=== PATIENT | male | born 1990 | race Caucasian/White ===

== ENCOUNTER → 2022-10-14 | Outpatient (CLI) | payer MEDICAID, SELFPAY ==
[2022-10-14 09:47] LABS: Absolute Lymphocyte Count 1.87 X10^3/uL (0.83-4.51); Absolute Neutrophil Count 2.3 X10^3/uL (2.0-7.7); Basophil# 0.03 X10^3/uL; Basophil% 0.6 % (0-1); Eosinophil# 0.25 X10^3/uL; Hematocrit 45.9 % (40-54); Lymphocyte # 1.87 X10^3/ul (0.83-4.51); Lymphocyte % 37.1 % (19-41); Mean Corp Hgb Conc 34.9 g/dL (32-36); Mean Corpuscular Hgb 33.9 pg (27.0-32.0); Mean Corpuscular Volume 97.2 fL (80-94); Mean Platelet Vol. 9.6 fl (6.2-12.0); Monocyte% 11.9 % (0-10); NRBC Flagged by Analyzer 0 % (0-5); Neutrophil # 2.27 X10^3/uL (2.7-7.7); Platelet Count 270 K/mm3 (150-450); RBC Distribution Width CV 12.7 % (11.6-14.6); RBC Distribution Width SD 45.3 fl (35.1-43.9); Red Blood Count 4.72 M/mm3 (4.6-6.2)
[2022-10-16 18:07] LABS: Alternaria alternata <0.10 kU/L (Class 0); Bermuda Grass <0.10 kU/L (Class 0); Bluegrass, Kentucky <0.10 kU/L (Class 0); D farinae Mite 0.79 kU/L (Class II); D pteronyssinus 0.79 kU/L (Class II); Dog Epithelia 8.15 kU/L (Class IV); Elm, American White <0.10 kU/L (Class 0); Mouse Urine 1.46 kU/L (Class III); Oak, White <0.10 kU/L (Class 0); Plantain, English <0.10 kU/L (Class 0); Ragweed, Short/Common 0.16 kU/L (Class 0/I)
[2022-10-17 17:08] LABS: Aspirgillus flavus Negative (Neg:<1:1); Aspirgillus fumigatus Negative (Neg:<1:1); Aspirgillus niger Negative (Neg:<1:1); Immunoglobulin E 536 IU/mL (6-495)
== END | disposition home or self-care (01) ==
LOC: PAVLAB 09:18
PROVIDERS: PCP Student in an Organized Health Care Education/Training Program; Referring Provider Internal Medicine Critical Care Medicine; Visit Provider Internal Medicine Critical Care Medicine
DX: J45.50 Severe persistent asthma, uncomplicated (principal)
CPT/HCPCS: 36415; 82785; 85025; 86003; 86606

== ENCOUNTER → 2022-11-11 | Outpatient (CLI) | payer MEDICAID, SELFPAY ==
--- NOTE | 2022-11-12 11:16 | PFT ---
INTRODUCTION: The patient is a 32-year-old male who presents for pulmonary function studies secondary to a diagnosis of asthma. Respiratory therapy reported good patient effort. Bronchodilators were used during testing. INTERPRETATION: Forced expiration spirometry demonstrates the presence of a mild large airways obstructive ventilatory defect. There was a significant response to aerosolized bronchodilators. Spirograms are of good quality and plateau gradually indicating slow emptying of the lungs. Body plethysmography was performed and revealed an elevated RV to 209% of predicted, indicative of underlying air trapping. Diffusing capacity by single breath CO was within normal limits. IMPRESSION: Partially reversible mild large airways obstructive ventilatory defect with associated air trapping.
== END | disposition home or self-care (01) ==
LOC: PSN 07:11
PROVIDERS: PCP Student in an Organized Health Care Education/Training Program; Referring Provider Internal Medicine Critical Care Medicine; Visit Provider Internal Medicine Critical Care Medicine
DX: J45.50 Severe persistent asthma, uncomplicated (principal)
CPT/HCPCS: 94060; 94726; 94729

== ENCOUNTER 2023-03-16 08:58 | Outpatient (CLI) | payer MEDICAID, SELFPAY ==
[2023-03-16 09:07] VITALS: BP 130/92; PULSE 83; RESP 16; TEMP 36.7; O2SAT 97; BMI 24.3
[2023-03-16] MEDS: Omalizumab 150 MG/ML Syringe SQ (09:18)
== END 2023-03-16 08:59 | disposition home or self-care (01) ==
PROVIDERS: PCP Student in an Organized Health Care Education/Training Program; Referring Provider Nurse Practitioner Acute Care; Visit Provider Nurse Practitioner Acute Care
DX: J45.50 Severe persistent asthma, uncomplicated (principal)
CPT/HCPCS: 96372; J2357

== ENCOUNTER 2023-05-01 09:15 | Outpatient (CLI) | payer MEDICAID, SELFPAY ==
[2023-05-01 09:26] VITALS: BP 128/70; PULSE 77; RESP 16; TEMP 36.2; O2SAT 93; BMI 27.0
[2023-05-01] MEDS: Omalizumab 150 MG/ML Syringe SQ (09:27)
--- OUTSIDE RECORDS SUMMARY | 2023-05-01 09:33 | XMS RPT_ITS | CCD ---
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 Name Role Phone Andree Kelly Irma Unavailable Unavailable ADA INIGUEZ, KELLIE Primary Care Physician ([id number] HALTAO INIGUEZ, KELLIE Primary Care Unavailable ANA SARAVIA Attending Unavailable JOSEPH KEATING MD Attending Unavailable DYLANKO , KELLIE Primary Care Unavailable VICENTE RUSSELL DO Attending Unavailable DYLANKO , KELLIE Primary Care Unavailable JAVIER INIGUEZ, DR TASNEEM Trevino Attending Unavailable ADA INIGUEZ, KELLIE Primary Care Unavailable KELLIE CABALLERO DO Attending Unavailable DYLANKO , KELLIE Primary Care Unavailable HALKO , KELLIE Primary Care Unavailable JAYNE WOOTEN MD Attending Unavailable ALBERTO HOGAN MD Attending Unavailable ADA DO, KELLIE Primary Care Unavailable HALKO DO, KELLIE Primary Care Unavailable ANA SARAVIA Attending Unavailable ADA INIGUEZ, KELLIE Primary Care Unavailable ANA SARAVIA Attending Unavailable KELLIE CABALLERO DO Attending Unavailable ADA INIGUEZ, KELLIE Primary Care Unavailable HALKO , KELLIE Primary Care Unavailable ODALIS CERVANTES MD Attending Unavailable Medications Current Medications Medication Drug Class(es) Dates Sig (Normalized) Sig (Original) Aimovig SureClick Autoinjector 70 mg/mL subcutaneous solution (1 source) Start: 06-18-2021 inject 1 dose by subcutaneous injection every month Aimovig SureClick Autoinjector 70 mg/mL subcutaneous solution Dose : 70 mg =, Subcutaneous, qmonth, # 1 mL, 0 Refill(s) Start Date: 06/18/21 Status: Ordered Albuterol (15 sources) beta2-Adrenergic Agonist Start: 04-10-2023 End: 05-10-2023 take 1 puff(s) by inhalation four times daily Ventolin HFA MDI (90 mcg/inh) inhalation aerosol 1 puff(s), Inhalation, QID, # 1 EA, 0 Refill(s) Start Date: 04/10/23 Stop Date: 05/10/23 Status: Ordered Completed/Discontinued Medications Medication Drug Class(es) Dates Sig (Normalized) Sig (Original) albuterol 0.833 mg/ml / ipratropium bromide 0.167 mg/ml inhalation solution (6 sources) Anticholinergic, beta2-Adrenergic Agonist Start: 01-15-2023 End: 01-22-2023 take 1 dose by inhalation every four hours as needed for wheezing albuterol-ipratro pium 2.5 mg-0.5 mg/3 mL inhalation solution Dose = 3 mL, Inhalation, q4h, PRN as needed for shortness of breath or wheezing, # 180 mL, 0 Refill(s), [facility]acy: [id number], Exacerbation of asthma, 175.3, cm, 01/15/23 14:25:00 EDT, Height, kg, 01/15/23 14:25:00 EDT, Dosing Weight Start Date: 01/15/23 Stop Date: 01/22/23 Status: Ordered Problems Active Problems Problem Classification Problem Date Documented Da te Episodic/Chronic Allergic reactions (6 sources) 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-2021 Episodic Asthma (8 sources) Exacerbation of asthma; Translations: [Unspecified asthma with (acute) exacerbation] Onset: 06-24-2021 Chronic Disorders of lipid metabolism (6 sources) Hyperlipidemia 09-06-2021 Chronic Epilepsy; convulsions (7 sources) Seizure disorder 06-18-2021 Episodic Genitourinary symptoms and ill-defined conditions (8 sources) Nocturia; Translations: [Polyuria] 06-18-2021 Episodic Headache; including migraine (7 sources) Migraine 06-18-2021 Chronic Mood disorders (7 sources) Bipolar disorder 05-27-2016 Chronic Other bone disease and musculoskeletal deformities (3 sources) Somatic dysfunction of lumbar region 05-23-2022 Episodic Other lower respiratory disease (1 source) Hypoxia 04-10-2023 Episodic Other nutritional; endocrine; and metabolic disorders (4 sources) Excessive thirst 06-18-2021 Episodic Other upper respiratory disease (7 sources) Seasonal allergy 06-18-2021 Chronic Other upper respiratory disease (4 sources) Bleeding from nose 06-18-2021 Episodic Screening and history of mental health and substance abuse codes (4 sources) Ex-smoker 06-18-2021 Episodic Past or Other Problems Problem Classification Problem Date Documented Da te Episodic/Chronic Unclassified (1 source) RASH,BUG BITES Onset: 10-08-2016 Results Test Name Value Interpretation Reference Range Facil ity Vital Signs Date Time Vital Sign Value Performing Clinician Faci lity 04-10-2023 17:15-0500 Diastolic Blood Pressure Non-Invasive 91 mm[Hg] DR TASNEEM HERRERA DO [facility] 04-10-2023 17:15-0500 Heart rate 72 /min DR TASNEEM HERRERA DO [facility] 04-10-2023 17:15-0500 Respiratory rate 16 /min DR TASNEEM HERRERA DO [facility] 04-10-2023 17:15-0500 Systolic Blood Pressure Non-Invasive 146 mm[Hg] DR TASNEEM HERRERA DO [facility] 04-10-2023 16:37-0500 Diastolic Blood Pressure Non-Invasive 91 mm[Hg] DR TASNEEM HERRERA DO [facility] 04-10-2023 16:37-0500 Heart rate 68 /min DR TASNEEM HERRERA DO [facility] 04-10-2023 16:37-0500 Respiratory rate 18 /min DR TASNEEM HERRERA DO [facility] 04-10-2023 16:37-0500 Systolic Blood Pressure Non-Invasive 140 mm[Hg] DR TASNEEM HERRERA DO [facility] 04-10-2023 15:58-[address] TASNEEM HERRERA DO [facility] 04-10-2023 15:58-[address] TASNEEM HERRERA DO [facility] 04-10-2023 15:58-0500 Diastolic Blood Pressure Non-Invasive 94 mm[Hg] DR TASNEEM HERRERA DO [facility] 04-10-2023 15:58-0500 Heart rate 84 /min DR TASNEEM HERRERA DO [facility] 04-10-2023 15:58-0500 Mean blood pressure 110 mm[Hg] DR TASNEEM HERRERA DO [facility] 04-10-2023 15:58-0500 Respiratory rate 18 /min DR TASNEEM HERRERA DO [facility] 04-10-2023 15:58-0500 Systolic Blood Pressure Non-Invasive 153 mm[Hg] DR TASNEEM HERRERA DO [facility] 04-10-2023 13:24-[address] TASNEEM HERRERA DO [facility] 04-10-2023 13:24-[address] TASNEEM HERRERA DO [facility] 04-10-2023 13:24-0500 Body temperature 98.24 [degF] DR TASNEEM HERRERA DO [facility] 04-10-2023 13:24-0500 Body weight 81.[address] TASNEEM HERRERA DO [facility] 02-22-2023 20:15-0500 Diastolic Blood Pressure Non-Invasive 86 mm[Hg] ODALIS CERVANTES MD [facility] 02-22-2023 20:15-0500 Heart rate 68 /min ODALIS CERVANTES MD [facility] 02-22-2023 20:15-0500 Respiratory rate 18 /min ODALIS CERVANTES MD [address] 02-22-2023 20:15-0500 Systolic Blood Pressure Non-Invasive 133 mm[Hg] ODALIS CERVANTES MD [address] [place] [address] 02-22-2023 16:28-0500 Diastolic Blood Pressure Non-Invasive 81 mm[Hg] ODALIS CERVANTES MD [address] 02-22-2023 16:28-0500 Heart rate 72 /min ODALIS CERVANTES MD [address] [place] [address] 02-22-2023 16:28-0500 Respiratory rate 18 /min ODALIS CERVANTES MD [address] [place] [address] 02-22-2023 16:28-0500 Systolic Blood Pressure Non-Invasive 146 mm[Hg] ODALIS CERVANTES MD [address] [place] [address] 02-22-2023 14:22-0500 Body temperature 97.16 [degF] ODALIS CERVANTES MD [address] [place] [address] 02-22-2023 14:22-0500 Body weight 73 kg ODALIS CERVANTES MD [address] [place] [address] 02-22-2023 14:22-0500 Diastolic Blood Pressure Non-Invasive 118 mm[Hg] ODALIS CERVANTES MD [address] 02-22-2023 14:22-0500 Heart rate 92 /min ODALIS CERVANTES MD [address] [place] [address] 02-22-2023 14:22-0500 Respiratory rate 16 /min ODALIS CERVANTES MD [address] [place] [address] 02-22-2023 14:22-0500 Systolic Blood Pressure Non-Invasive 151 mm[Hg] ODALIS CERVANTES MD [address] [place] [address] 12-16-2022 12:14-0400 Body temperature 97.7 [degF] JAYNE WOOTEN MD [facility] 12-16-2022 12:14-0400 Body weight 74.2 kg JAYNE WOOTEN MD [facility] 12-16-2022 12:14-0400 Diastolic Blood Pressure Non-Invasive 90 1 JAYNE WOOTEN MD [facility] 12-16-2022 12:14-0400 Heart rate 75 /min JAYNE WOOTEN MD [facility] 12-16-2022 12:14-0400 Respiratory rate 20 /min JAYNE WOOTEN MD [facility] 12-16-2022 12:14-0400 Systolic Blood Pressure Non-Invasive 136 1 JAYNE WOOTEN MD [facility] 04-17-2022 08:33-0500 Body temperature 97.88 [degF] JAYNE WOOTEN MD [facility] 04-17-2022 08:33-0500 Body weight 77.5 kg JAYNE WOOTEN MD [facility] 04-17-2022 08:33-0500 Diastolic Blood Pressure Non-Invasive 126 1 JAYNE WOOTEN MD [facility] 04-17-2022 08:33-0500 Heart rate 97 /min AJYNE WOOTEN MD [facility] 04-17-2022 08:33-0500 Respiratory rate 18 /min JAYNE WOOTEN MD [facility] 04-17-2022 08:33-0500 Systolic Blood Pressure Non-Invasive 161 1 JAYNE WOOTEN MD [facility] 06-24-2021 12:05-0400 Diastolic blood pressure 71 mm[Hg] ZULAY WALLACEGena DO [facility] 06-24-2021 12:05-0400 Heart rate 88 /min ZULAY WALLACET DO [facility] 06-24-2021 12:05-0400 Mean blood pressure 91 mm[Hg] ZULAY GONSALEZWeedWall [facility] 06-24-2021 12:05-0400 Respiratory rate 17 /min [facility]AY [facility] INSANEWeed[facility] 06-24-2021 12:05-0400 Systolic blood pressure 131 mm[Hg] ZULAY [facility] 06-24-2021 09:05-0400 Heart rate 107 /min [facility] 06-24-2021 09:05-0400 Respiratory rate 18 /min [facility] 06-24-2021 08:50-0400 Heart rate 81 /min [facility]AY [facility] 06-24-2021 08:50-0400 Respiratory rate 14 /min [facility] [email or web address] [facility] 06-24-2021 08:08-0400 Body temperature 98.06 [degF] ZULAY [facility] 06-24-2021 08:08-0400 Body weight 66.5 kg ZULAY MOSESArena [employer]aceuticals [facility] 06-24-2021 08:08-0400 Diastolic blood pressure 75 mm[Hg] ZULAY [facility] 06-24-2021 08:08-0400 Heart rate 103 /min ZULAY [facility] 06-24-2021 08:08-0400 Systolic blood pressure 139 mm[Hg] ZULAY ZAMAN DO [facility] Encounters Encounter Date Encounter Type Care Provider Facility Start: 04-10-2023 End: 04-10-2023 Emergency department patient visit DR TASNEEM HERRERA DO Facility:B Start: 04-10-2023 End: 04-10-2023 Emergency department patient visit DR TASNEEM HERRERA DO [facility] Start: 03-25-2023 End: 03-25-2023 Emergency department patient visit KELLIE DYLANTAO INIGUEZ Facility:A Start: 02-22-2023 End: 02-22-2023 Emergency department patient visit KELLIE CABALLERO Facility:A Start: 02-22-2023 End: 02-22-2023 Emergency department patient visit ODALIS CERVANTES MD [facility] Start: 02-22-2023 End: 02-22-2023 Emergency department patient visit KELLIE CABALLERO Facility:A Start: 12-22-2022 End: 12-22-2022 Emergency department patient visit KELLIE RICHARDSONTAO INIGUEZ Facility:A Start: 12-16-2022 End: 12-16-2022 Emergency department patient visit ALBERTO HOGAN MD Facility:A Start: 12-16-2022 End: 12-16-2022 Emergency department patient visit KELLIE CABALLERO Facility:A Start: 12-16-2022 End: 12-16-2022 Emergency department patient visit JAYNE WOOTEN MD [facility] Start: 11-03-2022 End: 11-03-2022 Emergency department patient visit VICENTE RUSSELL DO Facility:A Start: 06-17-2022 End: 06-17-2022 Emergency department patient visit JOSEPH KEATING MD Facility:A Start: 05-20-2022 End: 07-04-2022 ambulatory KELLIE CABALLERO DO Facility:A Start: 05-02-2022 End: 05-03-2022 ambulatory KELLIE CABALLERO DO Facility:B Start: 05-02-2022 End: 05-02-2022 Patient encounter procedure KELLIE CABALLERO DO [facility] Start: 04-17-2022 End: 04-17-2022 Emergency department patient visit JAYNE WOOTEN MD [facility] Start: 04-17-2022 End: 04-17-2022 Emergency department patient visit JAYNE WOOTEN MD [facility] Start: 06-24-2021 End: 06-24-2021 Emergency department patient visit ZULAY AUSTNY INIGUEZ [facility] Start: 10-08-2016 Ambulatory Kelly Candelario Facility:[facility] Procedures Date Procedure Procedure Detail Performing Clinician None (qualifier value) ZAHIDA WILSON [facility] INSANEGena INIGUEZ Immunizations Immunization Date Immunization Notes Care Provider [facility] 01-15-2023 influenza, injectabl e, quadrivalent, contains preservative; Translations: [Fluarix PF Quadrivalent ] ODALIS CERVANTES MD [facility] 08-22-2020 SARS-CoV-2 (COVID-19 ) mRNA-1273 vaccine JAYNE WOOTEN MD [facility] 07-25-2020 SARS-CoV-2 (COVID-19 ) mRNA-1273 vaccine JAYNE WOOTEN MD [facility] 04-06-2020 SARS-CoV-2 (COVID-19 ) mRNA-1273 vaccine JAYNE WOOTEN MD [facility] 03-07-2019 influenza virus vaccine, unspecified formulation JAYNE WOOTEN MD [facility] 04-30-1990 measles/mumps/rubell a virus vaccine JAYNE WOOTEN MD [facility] Payers Date Payer Category Payer Unknown [id number] 2016 Unknown [id number] 1989 Unknown [id number] 2.16.8 [id number] 1989 Unknown [id number] 2.16.8 [id number] 1989 Unknown [id number] 2.16.8 [id number] 1989 Unknown [id number] 2.16.8 [id number] 1989 Unknown [id number] 2.16.8 [id number] 1989 Unknown [id number] 2.16.8 [id number] 1989 Unknown [id number] 2.16.8 [id number] 1989 Unknown [id number] 2.16.8 [id number] 1989 Unknown [id number] 2.16.8 [id number] 1989 Unknown [id number] 2.16.8 [id number] 1989 Unknown [id number] 2.16.8 [id number] Social History Date Type Detail Facility Start: 06-18-2021 End: 12-30-2021 Light tobacco smoker (finding) [facility] At [facility] Start: 09-16-2022 Tobacco smoking status Ex-smoker (fi nding) [facility] Functional Status Date Assessment Result Facility 04-10-2023 Functional Status Independent [facility] 02-22-2023 Functional Status Independent [facility] 02-22-2023 Functional Status Standard Safet y ID band on, Call device within reach, Bed in low position, Wheels locked, Phone within reach, personal items within reach, Bedside Cart Locked, Safety level maintained, Hazards removed from floor [facility] Mental Status Date Assessment Result Facility 04-10-2023 Mental Status Orientation Oriented x 4 [facility] 04-10-2023 Mental Status [facility] 02-22-2023 Mental Status Orientation Oriented x 4 [facility] 02-22-2023 Mental Status [facility] Clinical Notes 06-24-2021 to 04-10-2023 LaboratoryLaboratoryLaboratoryLaboratoryLaboratory Note Date & Type Note Facility 04-10-2023 Hospital Discharg e instructions Patient Education 04/10/2023 16:28:43 COVID-19 Prevent the Spread of COVID-19 If You Are Sick (08/23/2019) (CUSTOM) Prevent the Spread of COVID-19 If You Are Sick Accessible version: https://www.cdc.gov/coronavirus/ 2019-ncov/eh-jlc-esq-sick/steps- when-sick.html If you are sick with COVID-19 or think you might have COVID-19, follow the steps below to help protect other people in your home and community. Stay home except to get medical care. Stay home. Most people with COVID-19 have mild illness and are able to recover at home without medical care. Do not leave your home, except to get medical care. Do not visit public areas. Take care of yourself. Get rest and stay hydrated. Get medical care when needed. Call your doctor before you go to their office for care. But, if you have trouble breathing or other concerning symptoms, call 911 for immediate help. Avoid public transportation, ride-sharing, or taxis. Separate yourself from other people and pets in your home. As much as possible, stay in a specific room and away from other people and pets in your home. Also, you should use a separate bathroom, if available. If you need to be around other people or animals in or outside of the home, wear a cloth face covering. See COVID-19 and Animals if you have questions about pets: https://www.cdc.gov/coronavirus/ 2019ncov/faq.html#DXUXE30puaixuo Monitor your symptoms. Common symptoms of COVID-19 include fever and cough. Trouble breathing is a more serious symptom that means you should get medical attention. Follow care instructions from your healthcare provider and local health department. Your local health authorities will give instructions on checking your symptoms and reporting information. If you develop emergency warning signs for COVID-19 get medical attention immediately. Emergency warning signs include*: Trouble breathing Persistent pain or pressure in the chest New confusion or not able to be woken Bluish lips or face *This list is not all inclusive. Please consult your medical provider for any other symptoms that are severe or concerning to you. Call 911 if you have a medical emergency. If you have a medical emergency and need to call 911, notify the bandsaw operator that you have or think you might have, COVID-19. If possible, put on a facemask before medical help arrives Call ahead before visiting your doctor. Call ahead. Many medical visits for routine care are being postponed or done by phone or telemedicine. If you have a medical appointment that cannot be postponed, call your doctor s office. This will help the office protect themselves and other patients. If you are sick, wear a cloth covering over your nose and mouth. You should wear a cloth face covering over your nose and mouth if you must be around other people or animals, including pets (even at home). You don t need to wear the cloth face covering if you are alone. If you can t put on a cloth face covering (because of trouble breathing for example), cover your coughs and sneezes in some other way. Try to stay at least 6 feet away from other people. This will help protect the people around you. Note: During the COVID-19 pandemic, medical grade facemasks are reserved for healthcare workers and some first responders. You may need to make a cloth face covering using a scarf or bandana. Cover your coughs and sneezes. Cover your mouth and nose with a tissue when you cough or sneeze. Throw used tissues in a lined trash can. Immediately wash your hands with soap and water for at least 20 seconds. If soap and water are not available, clean your hands with an alcohol-based hand inserting operator that contains at least 60% alcohol. Clean your hands often. Wash your hands often with soap and water for at least 20 seconds. This is especially important after blowing your nose, coughing, or sneezing; going to the bathroom; and before eating or preparing food. Use hand inserting operator if soap and water are not available. Use an alcohol-based hand inserting operator with at least 60% alcohol, covering all surfaces of your hands and rubbing them together until they feel dry. Soap and water are the best option, especially if your hands are visibly dirty. \ Avoid touching your eyes, nose, and mouth with unwashed hands. Avoid sharing personal household items. Do not share dishes, drinking glasses, cups, eating utensils, towels, or bedding with other people in your home. Wash these items thoroughly after using them with soap and water or put them in the research technician. Clean all high-touch surfaces everyday. Clean and disinfect high-touch surfaces in your sick room and bathroom. Let someone else clean and disinfect surfaces in common areas, but not your bedroom and bathroom. If a caregiver or other person needs to clean and disinfect a sick person s bedroom or bathroom, they should do so on an as-needed basis. The caregiver/other person should wear a mask and wait as long as possible after the sick person has used the bathroom High-touch surfaces include phones, remote controls, counters, tabletops, doorknobs, bathroom fixtures, toilets, keyboards, tablets, and bedside tables. Clean and disinfect areas that may have blood, stool, or body fluids on them. Use household preparation plant repairer and disinfectants. Clean the area or item with soap and water or another detergent if it is dirty. Then use a household disinfectant. Be sure to follow the instructions on the label to ensure safe and effective use of the product. Many products recommend keeping the surface wet for several minutes to ensure germs are killed. Many also recommend precautions such as wearing gloves and making sure you have good ventilation during use of the product. Most EPA-registered household disinfectants should be effective. How to discontinue home isolation. People with COVID-19 who have stayed home (home isolated) can stop home isolation under the following conditions: If you will not have a test to determine if you are still contagious, you can leave home after these three things have happened: You have had no fever for at least 72 hours (that is three full days of no fever without the use of medicine that reduces fevers) AND other symptoms have improved (for example, when your cough or shortness of breath has improved) AND at least 10 days have passed since your symptoms first appeared. If you will be tested to determine if you are still contagious, you can leave home after these three things have happened: You no longer have a fever (without the use of medicine that reduces fevers) AND other symptoms have improved (for example, when your cough or shortness of breath has improved) AND you received two negative tests in a row, 24 hours apart. Your doctor will follow CDC guidelines. In all cases, follow the guidance of your healthcare provider and local health department. The decision to stop home isolation should be made in consultation with your healthcare provider and state and local health departments. Local decisions depend on local circumstances. cdc.gov/coronavirus Follow Up Care 04/10/2023 13:17:02 With:KELLIE CABALLERO DO Address: [address] [facility] [place], [place] [id number]- [phone] When:2-4 days [facility] 04-10-2023 Note Discharge Instructions Thank you for allowing [place] to assist you with your healthcare needs. The following is important discharge information regarding your hospital visit. Diagnosis from Today's Visit COVID What to Do Next Instructions from Your Care Team No qualifying data available. Post Acute Orders No qualifying data available. You Need to Schedule the Following Appointments Follow Up with HALKO, KELLIE DO When Within 2-4 days Where: [address] [facility] [place] [address]- [phone] Allergies [facility] Medications Please ask your primary doctor or pharmacist before taking any other medication not listed, including over the counter drugs, herbal medications, vitamins and or supplements as they may interact with your home medications. What How Much When Why Instructions Last Dose New amoxicillin (amoxicillin 875 mg oral tablet) 1 tab(s) by mouth Two (2) times a day Duration: 5 Days Printed Prescription Changed albuterol (ProAir HFA MDI (90 mcg/ inh) inhalation aerosol) 1 puff(s) by inhalation Every 4 hours as needed for as needed for wheezing Duration: 90 Days lack of efficacy with ventolin, dispense proair; use with spacer chamber Changed albuterol (Ventolin HFA MDI (90 mcg/ inh) inhalation aerosol) 1 puff(s) by inhalation Four (4) times a day Duration: 30 Days Printed Prescription Unchanged albuterol-ipratropium (albuterol-ipratropium 2.5 mg-0.5 mg/ 3 mL inhalation solution) 3 Milliliter by inhalation Every 4 hours as needed for as needed for shortness of breath or wheezing Exacerbation of asthma Duration: 7 Days Unchanged benzonatate (benzonatate 200 mg oral capsule) 1 cap by mouth Three (3) times a day Duration: 14 Days Unchanged budesonide-formoterol (Symbicort 160 mcg-4.5 mcg/ inh Inhaler) 2 puff(s) by inhalation Two (2) times a day Duration: 90 Days Unchanged cyclobenzaprine (cyclobenzaprine 10 mg oral tablet) 1 tab(s) by mouth Three (3) times a day as needed for Muscle spasm Duration: 30 Days Unchanged dextromethorphan-promethazine (dextromethorphan-promethazine 15 mg-6.25 mg/ 5 mL oral syrup) 5 Milliliter by mouth Every 6 hours as needed for for cough Duration: 7 Days Unchanged divalproex sodium (Depakote 500 mg oral delayed release tablet) 1 tab(s) by mouth Two (2) times a day Unchanged DME (DME MISCellaneous) See instructions dispense one inhaler spacer chamber; dx. J45.5 Unchanged DME (DME MISCellaneous) See instructions COVID Dx U07.1; dispense one nebulizer with pipe and tubing supplies Unchanged emollients, topical (emollients (Eucerin Cream) Cream) 1 application Topical Two (2) times a day as needed for as needed for dry skin Unchanged erenumab (A[employer]ig SureClick Autoinjector 70 mg/ mL subcutaneous solution) 70 Milligram Subcutaneous Once a month Unchanged gabapentin (gabapentin 300 mg oral capsule) 1 cap by mouth Three (3) times a day Low back pain with sciatica Duration: 30 Days to fill on or after Unchanged galcanezumab (Emgality Prefilled Pen 120 mg/ mL subcutaneous solution) 120 Milligram Unchanged meloxicam (meloxicam 15 mg oral tablet) 1 tab(s) by mouth Once a day Duration: 90 Days Unchanged montelukast (montelukast 10 mg oral tablet) 1 tab(s) by mouth Once a day Duration: 90 Days Unchanged OXcarbazepine (OXcarbazepine 300 mg oral tablet) 2 tab(s) by mouth Two (2) times a day Unchanged predniSONE (prednisone 10mg tab (TAPER)) [id number] x 2days/dose by mouth Once a day Duration: 14 Days [id number],1B3pjoy,9O4wyvm,3M9csfa, 4S9xniv,2Z6agoe, 0.5X2 days. Unchanged sildenafil (sildenafil 50 mg oral tablet) 1 tab(s) by mouth Once a day as needed for as needed for erectile dysfunction Duration: 30 Days 1 hour before sexual activity Unchanged tiotropium (Spiriva Respimat 1.25 mcg/ inh inhalation aerosol) 2 puff(s) by inhalation Once a day Duration: 90 Days Please take this list to your next doctor s visit. Bring all medications you take, including over the counter medications, herbals and other supplements with you to your doctor s visit. Patients and families are reminded to discard old lists and to update any records with all medication providers or retail pharmacies. Medication Leaflets amoxicillin (am OX i roman in) What is the most important information I should know about amoxicillin? You should not use this medicine if you are allergic to any penicillin antibiotic. What is amoxicillin? Amoxicillin is a penicillin antibiotic that is used to treat many different types of infection caused by bacteria, such as tonsillitis, bronchitis, pneumonia, and infections of the ear, nose, throat, skin, or urinary tract. Amoxicillin is also sometimes used together with another antibiotic called clarithromycin (Biaxin) to treat stomach ulcers caused by Helicobacter pylori infection. This combination is sometimes used with a stomach acid slusher operator called lansoprazole (Prevacid). Amoxicillin may also be used for purposes not listed in this medication guide. What should I discuss with my healthcare provider before taking amoxicillin? You should not use this medicine if you are allergic to any penicillin antibiotic, such as ampicillin, dicloxacillin, oxacillin, penicillin, or ticarcillin. Tell your doctor if you have ever had: kidney disease; mononucleosis (also called 'mono'); diarrhea caused by taking antibiotics; or food or drug allergies (especially to a cephalosporin antibiotic such as Omnicef, Cefzil, Ceftin, Keflex, and others). It is not known whether this medicine will harm an unborn baby. Tell your doctor if you are or plan to become . Amoxicillin can make control pills less effective. Ask your doctor about using a non-hormonal control (condom, diaphragm, cervical cap, or contraceptive sponge) to prevent . It may not be safe to breastfeed while using this medicine. Ask your doctor about any risk. How should I take amoxicillin? Follow all directions on your prescription label and read all medication guides or instruction sheets. Use the medicine exactly as directed. Take this medicine at the same time each day. Some forms of amoxicillin may be taken with or without food. Check your medicine label to see if you should take your amoxicillin with food or not. Shake the oral suspension (liquid) before you measure a dose. Measure liquid medicine with the dosing syringe provided, or use a medicine dose-measuring device (not a kitchen spoon). You may mix the liquid with water, milk, baby formula, fruit juice, or jhonny morro. Drink all of the mixture right away. Do not save for later use. You must chew the chewable tablet before you swallow it. Swallow the regular tablet whole and do not crush, chew, or break it. You will need frequent medical tests. If you are taking amoxicillin with clarithromycin and/or lansoprazole to treat stomach ulcer, use all of your medications as directed. Read the medication guide or patient instructions provided with each medication. Do not change your doses or medication schedule without your doctor's advice. Use this medicine for the full prescribed length of time, even if your symptoms quickly improve. Skipping doses can increase your risk of infection that is resistant to medication. Amoxicillin will not treat a viral infection such as the flu or a common cold. Do not share this medicine with another person, even if they have the same symptoms you have. This medicine can affect the results of certain medical tests. Tell any doctor who treats you that you are using amoxicillin. Store at room temperature away from moisture, heat, and light. You may store liquid amoxicillin in a refrigerator but do not allow it to freeze. Throw away any liquid amoxicillin that is not used within 14 days after it was mixed at the pharmacy. What happens if I miss a dose? Skip the missed dose and use your next dose at the regular time. Do not use two doses at one time. What happens if I overdose? Seek emergency medical attention or call the Poison Help line at . What should I avoid while taking amoxicillin? Antibiotic medicines can cause diarrhea, which may be a sign of a new infection. If you have diarrhea that is watery or bloody, call your doctor before using anti-diarrhea medicine. What are the possible side effects of amoxicillin? Get emergency medical help if you have signs of an allergic reaction (hives, difficult breathing, swelling in your face or throat) or a severe skin reaction (fever, sore throat, burning eyes, skin pain, red or purple skin rash with blistering and peeling). Call your doctor at once if you have: severe stomach pain; or diarrhea that is watery or bloody (even if it occurs months after your last dose). Common side effects may include: nausea, vomiting, diarrhea; or rash. This is not a complete list of side effects and others may occur. Call your doctor for medical advice about side effects. You may report side effects to FDA at 7-799-YCL-1458. What other drugs will affect amoxicillin? Tell your doctor about all your other medicines, especially: any other antibiotics; allopurinol; probenecid; or a blood thinner--warfarin, Coumadin, Jantoven. This list is not complete. Other drugs may affect amoxicillin, including prescription and aykm-dlj-fmvvsdt medicines, vitamins, and herbal products. Not all possible drug interactions are listed here. Where can I get more information? Your pharmacist can provide more information about amoxicillin. Remember, keep this and all other medicines out of the reach of children, never share your medicines with others, and use this medication only for the indication prescribed. Every effort has been made to ensure that the information provided by [employer]. [employer]') is accurate, up-to-date, and complete, but no guarantee is made to that effect. Drug information contained herein may be time sensitive. [employer] information has been compiled for use by healthcare practitioners and consumers in the [place] and therefore [employer] does not warrant that uses outside of the [place] are appropriate, unless specifically indicated otherwise. [employer]'s drug information does not endorse drugs, diagnose patients or recommend therapy. [facility] drug information is an informational resource designed to assist licensed healthcare practitioners in caring for their patients and/or to serve consumers viewing this service as a supplement to, and not a substitute for, the expertise, skill, knowledge and judgment of healthcare practitioners. The absence of a warning for a given drug or drug combination in no way should be construed to indicate that the drug or drug combination is safe, effective or appropriate for any given patient. [employer] does not assume any responsibility for any aspect of healthcare administered with the aid of information [employer] provides. The information contained herein is not intended to cover all possible uses, directions, precautions, warnings, drug interactions, allergic reactions, or adverse effects. If you have questions about the drugs you are taking, check with your doctor, nurse or pharmacist. Copyright [id number] [employer]. Version: 10.. Revision Date: 03/01/2019. albuterol inhalation (al BYOO ter all) ProAir HFA, ProAir RespiClick, Proventil HFA, Ventolin HFA What is the most important information I should know about albuterol inhalation? Follow all directions on your medicine label and package. Tell each of your healthcare providers about all your medical conditions, allergies, and all medicines you use. What is albuterol inhalation? Albuterol inhalation is a bronchodilator that is used to treat or prevent bronchospasm in people with reversible obstructive airway disease. Albuterol is also used to prevent exercise-induced bronchospasm. Albuterol inhalation is for use in adults and children at least 4 years old. Albuterol inhalation may also be used for purposes not listed in this medication guide. What should I discuss with my healthcare provider before using albuterol inhalation? You should not use this medicine if you are allergic to albuterol. You should not use ProAir RespiClick if you are allergic to milk proteins. Tell your doctor if you have ever had: heart disease, high blood pressure; a thyroid disorder; seizures; diabetes; or low levels of potassium in your blood. Tell your doctor if you are or plan to become . It is not known whether albuterol will harm an unborn baby. However, having uncontrolled asthma during may increase the risk of premature , low weight, or eclampsia (dangerously high blood pressure that can lead to medical problems in both mother and baby). The benefit of preventing bronchospasm may outweigh any risks to the baby. If you are , your name may be listed on a registry to track the effects of albuterol on the baby. It may not be safe to breastfeed while using this medicine. Ask your doctor about any risk. How should I use albuterol inhalation? Follow all directions on your prescription label and read all medication guides. Use the medicine exactly as directed. Do not allow a young child to use albuterol inhalation without help from an adult. To prevent exercise-induced bronchospasm, use this medicine 15 to 30 minutes before you exercise. The effects of albuterol inhalation should last about 4 to 6 hours. Seek medical attention if your breathing problems get worse quickly, or if you think your asthma medications are not working as well. Read and carefully follow any Instructions for Use provided with your medicine. Ask your doctor or pharmacist if you do not understand these instructions. ProAir HFA, Proventil HFA, or Ventolin HFA must be shaken before each use. You do not need to shake ProAir RespiClick before using. Do not try to clean or take apart the ProAir RespiClick inhaler device. Always use the new inhaler device provided with your refill. Do not float a medicine canister in water to see if it is empty. Your dose needs may change due to surgery, illness, stress, or a recent asthma attack. Do not change your dose or dosing schedule without your doctor's advice. Store at room temperature away from moisture, heat, or cold temperatures. Keep the cover on your ProAir RespiClick inhaler when not in use. Store Proventil or Ventolin with the mouthpiece down. Keep the inhaler canister away from open flame or high heat. The canister may explode if it gets too hot. Do not puncture or burn an empty inhaler canister. What happens if I miss a dose? Use the medicine as soon as you can, but skip the missed dose if it is almost time for your next dose. Do not use two doses at one time. Get your prescription refilled before you run out of medicine completely. What happens if I overdose? Seek emergency medical attention or call the Poison Help line at . An overdose of albuterol can be fatal. Overdose symptoms may include dry mouth, tremors, chest pain, fast heartbeats, nausea, general ill feeling, seizure, feeling light-headed or fainting. What should I avoid while using albuterol inhalation? Rinse with water if this medicine gets in your eyes. What are the possible side effects of albuterol inhalation? Get emergency medical help if you have signs of an allergic reaction: hives; difficult breathing; swelling of your face, lips, tongue, or throat. Call your doctor at once if you have: wheezing, choking, or other breathing problems after using this medicine; chest pain, fast heart rate, pounding heartbeats or fluttering in your chest; severe headache, pounding in your neck or ears; pain or burning when you urinate; high blood sugar--increased thirst, increased urination, dry mouth, fruity breath odor; or low potassium--leg cramps, constipation, irregular heartbeats, increased thirst or urination, numbness or tingling, muscle weakness or limp feeling. Common side effects may include: chest pain, fast or pounding heartbeats; upset stomach, vomiting; painful urination; dizziness; feeling shaky or nervous; headache, back pain, body aches; or cough, sore throat, sinus pain, runny or stuffy nose. This is not a complete list of side effects and others may occur. Call your doctor for medical advice about side effects. You may report side effects to FDA at 6-357-ELV-4214. What other drugs will affect albuterol inhalation? Tell your doctor about all your other medicines, especially: any other inhaled medicines or bronchodilators; digoxin; a diuretic or 'water pill'; an antidepressant--amitriptyline, desipramine, imipramine, doxepin, nortriptyline, and others; a beta cameron--atenolol, carvedilol, labetalol, metoprolol, propranolol, sotalol, and others; or an MAO inhibitor--isocarboxazid, linezolid, methylene blue injection, phenelzine, rasagiline, selegiline, tranylcypromine, and others. This list is not complete. Other drugs may affect albuterol inhalation, including prescription and befr-hxe-qbbcfqy medicines, vitamins, and herbal products. Not all possible drug interactions are listed here. Where can I get more information? Your pharmacist can provide more information about albuterol inhalation. Remember, keep this and all other medicines out of the reach of children, never share your medicines with others, and use this medication only for the indication prescribed. Every effort has been made to ensure that the information provided by [employer]') is accurate, up-to-date, and complete, but no guarantee is made to that effect. Drug information contained herein may be time sensitive. [employer] information has been compiled for use by healthcare practitioners and consumers in the [place] and therefore [employer] does not warrant that uses outside of the [place] are appropriate, unless specifically indicated otherwise. [employer]'s drug information does not endorse drugs, diagnose patients or recommend therapy. [facility] drug information is an informational resource designed to assist licensed healthcare practitioners in caring for their patients and/or to serve consumers viewing this service as a supplement to, and not a substitute for, the expertise, skill, knowledge and judgment of healthcare practitioners. The absence of a warning for a given drug or drug combination in no way should be construed to indicate that the drug or drug combination is safe, effective or appropriate for any given patient. [employer] does not assume any responsibility for any aspect of healthcare administered with the aid of information [employer] provides. The information contained herein is not intended to cover all possible uses, directions, precautions, warnings, drug interactions, allergic reactions, or adverse effects. If you have questions about the drugs you are taking, check with your doctor, nurse or pharmacist. Copyright [id number] [employer]. Version: 10.. Revision Date: 02/22/2020. Education Materials Prevent the Spread of COVID-19 If You Are Sick Accessible version: https://www.cdc.gov/coronavirus/ 2019-ncov/sq-wts-jxn-sick/steps- when-sick.html If you are sick with COVID-19 or think you might have COVID-19, follow the steps below to help protect other people in your home and community. Stay home except to get medical care. Stay home. Most people with COVID-19 have mild illness and are able to recover at home without medical care. Do not leave your home, except to get medical care. Do not visit public areas. Take care of yourself. Get rest and stay hydrated. Get medical care when needed. Call your doctor before you go to their office for care. But, if you have trouble breathing or other concerning symptoms, call 911 for immediate help. Avoid public transportation, ride-sharing, or taxis. Separate yourself from other people and pets in your home. As much as possible, stay in a specific room and away from other people and pets in your home. Also, you should use a separate bathroom, if available. If you need to be around other people or animals in or outside of the home, wear a cloth face covering. See COVID-19 and Animals if you have questions about pets: https://www.cdc.gov/coronavirus/ 2019ncov/faq.html#YPDSD24dtcqtkw Monitor your symptoms. Common symptoms of COVID-19 include fever and cough. Trouble breathing is a more serious symptom that means you should get medical attention. Follow care instructions from your healthcare provider and local health department. Your local health authorities will give instructions on checking your symptoms and reporting information. If you develop emergency warning signs for COVID-19 get medical attention immediately. Emergency warning signs include*: Trouble breathing Persistent pain or pressure in the chest New confusion or not able to be woken Bluish lips or face *This list is not all inclusive. Please consult your medical provider for any other symptoms that are severe or concerning to you. Call 911 if you have a medical emergency. If you have a medical emergency and need to call 911, notify the bandsaw operator that you have or think you might have, COVID-19. If possible, put on a facemask before medical help arrives Call ahead before visiting your doctor. Call ahead. Many medical visits for routine care are being postponed or done by phone or telemedicine. If you have a medical appointment that cannot be postponed, call your doctor s office. This will help the office protect themselves and other patients. If you are sick, wear a cloth covering over your nose and mouth. You should wear a cloth face covering over your nose and mouth if you must be around other people or animals, including pets (even at home). You don t need to wear the cloth face covering if you are alone. If you can t put on a cloth face covering (because of trouble breathing for example), cover your coughs and sneezes in some other way. Try to stay at least 6 feet away from other people. This will help protect the people around you. Note: During the COVID-19 pandemic, medical grade facemasks are reserved for healthcare workers and some first responders. You may need to make a cloth face covering using a scarf or bandana. Cover your coughs and sneezes. Cover your mouth and nose with a tissue when you cough or sneeze. Throw used tissues in a lined trash can. Immediately wash your hands with soap and water for at least 20 seconds. If soap and water are not available, clean your hands with an alcohol-based hand inserting operator that contains at least 60% alcohol. Clean your hands often. Wash your hands often with soap and water for at least 20 seconds. This is especially important after blowing your nose, coughing, or sneezing; going to the bathroom; and before eating or preparing food. Use hand inserting operator if soap and water are not available. Use an alcohol-based hand inserting operator with at least 60% alcohol, covering all surfaces of your hands and rubbing them together until they feel dry. Soap and water are the best option, especially if your hands are visibly dirty. \ Avoid touching your eyes, nose, and mouth with unwashed hands. Avoid sharing personal household items. Do not share dishes, drinking glasses, cups, eating utensils, towels, or bedding with other people in your home. Wash these items thoroughly after using them with soap and water or put them in the research technician. Clean all high-touch surfaces everyday. Clean and disinfect high-touch surfaces in your sick room and bathroom. Let someone else clean and disinfect surfaces in common areas, but not your bedroom and bathroom. If a caregiver or other person needs to clean and disinfect a sick person s bedroom or bathroom, they should do so on an as-needed basis. The caregiver/other person should wear a mask and wait as long as possible after the sick person has used the bathroom High-touch surfaces include phones, remote controls, counters, tabletops, doorknobs, bathroom fixtures, toilets, keyboards, tablets, and bedside tables. Clean and disinfect areas that may have blood, stool, or body fluids on them. Use household preparation plant repairer and disinfectants. Clean the area or item with soap and water or another detergent if it is dirty. Then use a household disinfectant. Be sure to follow the instructions on the label to ensure safe and effective use of the product. Many products recommend keeping the surface wet for several minutes to ensure germs are killed. Many also recommend precautions such as wearing gloves and making sure you have good ventilation during use of the product. Most EPA-registered household disinfectants should be effective. How to discontinue home isolation. People with COVID-19 who have stayed home (home isolated) can stop home isolation under the following conditions: If you will not have a test to determine if you are still contagious, you can leave home after these three things have happened: You have had no fever for at least 72 hours (that is three full days of no fever without the use of medicine that reduces fevers) AND other symptoms have improved (for example, when your cough or shortness of breath has improved) AND at least 10 days have passed since your symptoms first appeared. If you will be tested to determine if you are still contagious, you can leave home after these three things have happened: You no longer have a fever (without the use of medicine that reduces fevers) AND other symptoms have improved (for example, when your cough or shortness of breath has improved) AND you received two negative tests in a row, 24 hours apart. Your doctor will follow CDC guidelines. In all cases, follow the guidance of your healthcare provider and local health department. The decision to stop home isolation should be made in consultation with your healthcare provider and state and local health departments. Local decisions depend on local circumstances. cdc.gov/coronavirus Additional Information VACCINATE! IT SAVES LIVES! Members of the community who have not yet received the COVID-19 vaccine and would like to receive it can visit one of [facility] vaccine clinics. There are many vaccine clinic locations within the [facility]. For locations and available times, please visit [email or web address] It is important to note that some COVID mobile vaccine clinics are held outdoors and may be canceled in rainy or stormy conditions. To learn more about pediatric vaccinations (ages 5-11), we invite you to visit the [facility] webpage. [email or web address] To learn more about the COVID-19 vaccine, we invite you to visit the CDC website for a list of frequently asked questions. https://www.cdc.gov/coronavirus/ 2019-ncov/vaccines/faq.html [facility] Patient Portal Access Instructions: Stay connected with your healthcare team and access your personal medical information anytime with the [facility] Patient Portal. If you would like a full copy of your medical records please contact the [facility] Medical Records Department Thursday through Thursday between 8a.m. and 4:30p.m. Please follow the directions below to access the portal: 1.Access the email account you provided upon registration to the hospital.2.Look for an invitation email from [facility].3.Open the email and access the invitation link: Accept Invitation to [facility]4.Fill in the required cary to create your account. Sign into www.[employer] with your username and password that you created in the above steps to stay up to date. You can then view a summary of results, a summary of your visits, and the ability to download your summaries to your computer or send the information securely to a physician. Remember that your healthcare information is confidential, so carefully consider who you will allow to register on the [facility] Patient Portal for access to your information. You can also access the [facility] Patient Portal on the [employer]. Simply click on Health Records under Health Data and then click on the [facility] logo. HOW TO SAFELY DISPOSE OF PRESCRIPTION MEDICATIONS Please use one of the following methods to safely dispose of your unused medications. 1.Use a drug disposal kit: the drug disposal pouch allows you to safely discard your old and unused drugs. Ask your nurse to give you one when you are discharged.2.Visit a local take-back location: Many local pharmacies and police departments have programs that collect old and unwanted prescription drugs. Call your local pharmacy or go to http://AndroJek.ESO Solutions/0O1Ri3u to find one close to you.3.Make use of household items: Use cat litter or old coffee grounds to dispose medications if other options are not available. Mix your drugs with these household products, seal them in an airtight container and throw it into the garbage. Call [facility]: [phone] to be sure your drugs can be disposed of in this way. Some medicines may require a different approach.4.Never flush your medications down the toilet. IF YOU HAVE BEEN PRESCRIBED AN OPIOIDS FOR PAIN If you have been prescribed an opioid (such as hydrocodone, oxycodone or morphine), it is critical to understand the possible side effects and risks of opioid pain medications. Even when taken as directed, opioids can have several side effects including: Tolerance, meaning you might need to take more of a medication for the same pain relief. Nausea, vomiting and/or constipation. Sleepiness, dizziness, dry mouth, confusion, depression or itching. Physical dependence, meaning you have withdrawal symptoms when a medication is stopped ? this can develop within a few days. KNOW YOUR RESPONSIBILITIES It is important to know exactly how much and how often to take the opioid pain medications you are prescribed. Never take opioids in higher amounts or more often than prescribed. Do not combine opioids with alcohol or other drugs that cause drowsiness, such as benzodiazepines, also known as benzos, including diazepam and alprazolam, muscle relaxants or sleep aids. Never sell or share prescription opioids. This is illegal. Store opioids in a secure place and out of reach of others (including children, family, friends and visitors). The last page(s) of this document has been signed and retained as a CHART COPY Signatures Patient Education Materials COVID-19 Prevent the Spread of COVID-19 If You Are Sick (08/23/2019) (CUSTOM) Medication Leaflets amoxicillin, Ventolin HFA MDI (90 mcg/inh) inhalation aerosol My discharge plan and instructions have been reviewed and explained to me and I,DAHLIA CHOE understand my current condition and have read and understand these discharge instructions. I have received a written copy of the plan/instructions. If I have questions, I am aware that I should contact my doctor. Patient/Yarn Handler Signature: Date/Time: Relationship to Patient: Witness Name/Signature: Date/Time: [facility] 02-22-2023 Hospital Discharg e instructions Patient Education 02/22/2023 18:50:22 Vomiting and Diarrhea, Nonspecific (Adult) Nonspecific Vomiting and Diarrhea (Adult) Vomiting and diarrhea can have many causes, including: Helping your body get rid of harmful substances Gastroenteritis caused by viruses, parasites, bacteria, or toxins. Allergy to or side effect of a food or medicine Severe stress or worry (anxiety) Other illnesses It is often hard to pinpoint an exact cause, even with testing. Vomiting and diarrhea often go away within a day or two without problems. If they continue, though, they can lead to too much loss of fluid (dehydration). This can be serious if not treated. Home care Medicines You may use acetaminophen or NSAID medicines like ibuprofen or naproxen to control fever, unless another medicine was prescribed. If you have chronic liver or kidney disease, talk with your healthcare provider before using these medicines. Also talk with your provider if you've had a stomach ulcer or gastrointestinal bleeding. Don't give aspirin to anyone under 18 years of age who is ill with a fever because it may cause severe disease or . Don't use NSAID medicines if you are already taking one for another condition (like arthritis) or are on aspirin (such as for heart disease or after a stroke) Grmj-fax-vrmtcde medicines for diarrhea, nausea, and vomiting are generally OK unless you have bleeding, fever, or severe abdominal pain. General care If symptoms are severe, rest at home for the next 24 hours, or until you are feeling better. Washing your hands with soap and water, or using alcohol-based hand inserting operator is the best way to stop the spread of infection. Wash your hands after touching anyone who is sick. Wash your hands after using the toilet and before meals. Clean the toilet after each use. Dry your hands with a single use towel. Caffeine, tobacco, and alcohol can make the diarrhea, cramping, and pain worse. Remember, caffeine not only is in coffee, but also is in chocolate, some energy drinks, and teas. Diet Water and clear liquids are important so you don't get dehydrated. Drink a small amount at a time. Don't guzzle down the drinks. That may increase your nausea, make cramping worse, and cause the drinks to come back up. Sports drinks may also help if you are healthy and not too dehydrated. They have too much sugar and not enough electrolytes and can sometimes make things worse. Also, don't drink beverages that are too acidic, like orange juice and grape juice. If you are very dehydrated, commercially available products called oral rehydration solutions are best. Food Don't force yourself to eat, especially if you have cramps, diarrhea, or vomiting. Eat just a little at a time, and then wait a few minutes before you try to eat more. Don't eat fatty, greasy, spicy, or fried foods. Don't eat dairy products if you have diarrhea. They can make it worse. During the first 24 hours (the first full day), follow the diet below: Beverages: Oral rehydration solutions, sports drinks, soft drinks without caffeine, mineral water, and decaffeinated tea and coffee Soups: Clear broth, consomm , and bouillon Desserts: Plain gelatin, popsicles, and fruit juice bars During the next 24 hours (the second day), you may add the following to the above if you are better. If not, continue what you did the first day: Hot cereal, plain toast, bread, rolls, crackers Plain noodles, rice, mashed potatoes, chicken noodle or rice soup Unsweetened canned fruit (avoid pineapple), bananas Limit fat intake to less than 15 grams per day by avoiding margarine, butter, oils, mayonnaise, sauces, gravies, fried foods, peanut butter, meat, poultry, and fish. Limit fiber. Avoid raw or cooked vegetables, fresh fruits (except bananas) and bran cereals. Limit caffeine and chocolate. No spices or seasonings except salt. During the next 24 hours: Gradually resume a normal diet, as you feel better and your symptoms improve. If at any time your symptoms start getting worse again, go back to clear liquids until you feel better. Food preparation If you have diarrhea, you should not prepare food for others. When preparing foods, wash your hands before and after. Wash your hands or use alcohol-based inserting operator after using cutting boards, countertops, and knives that have been in contact with raw food. Dry your hands with a single use towel. Keep uncooked meats away from cooked and edjab-ng-fkv foods. Follow-up care Follow up with your healthcare provider, or as advised. Call if you don't get better in the next 2 to 3 days. If a stool (diarrhea) sample was taken, or cultures done, you will be told if they are positive, or if your treatment needs to be changed. You may call as directed for the results. If X-rays were taken, you will be notified of any new findings that may affect your care Call 911 Call 911 if any of these occur: Trouble breathing Chest pain Confusion Severe drowsiness or trouble awakening Fainting or loss of consciousness Rapid heart rate Seizure Stiff neck Severe weakness, dizziness, or lightheadedness When to seek medical advice Call your healthcare provider right away if any of these occur: Bloody or black vomit or stools Severe, steady abdominal pain or any abdominal pain that is getting worse Severe headache or stiff neck An inability to hold down even sips of liquids for more than 12 hours Vomiting that lasts more than 24 hours Diarrhea that lasts more than 24 hours Fever of 100.4 F (38.0 C) or higher, or as directed by your healthcare provider Yellowish color to your skin or the whites of your eyes Signs of dehydration, such as dry mouth, little urine (less than every 6 hours), or very dark urine [id number] [employer] [place] [address], [place] [address]. All rights reserved. This information is not intended as a substitute for professional medical care. Always follow your healthcare professional's instructions. Follow Up Care 02/22/2023 14:18:05 With:KELLIE CABALLERO Address: [address] [place] [phone] Business (1) When:2-4 days Comments:Follow-up as needed if symptoms persist.Clear liquid diet, slowly advance as tolerated.Use Tylenol or Advil for pain and fever as needed.Use wrqt-hnm-vzmnbeb antidiarrheal medicines like Imodium as needed.Use Zofran as prescribed for nausea and vomiting as needed.Return to the ED if symptoms worsen. [facility] 02-22-2023 Emergency department Discharge summary Discharge Instructions Thank you for allowing [facility] to assist you with your healthcare needs. The following is important discharge information regarding your hospital visit. Diagnosis from Today's Visit Abdominal pain Dizziness Vomiting What to Do Next Instructions from Your Care Team No qualifying data available. Post Acute Orders No qualifying data available. You Need to Schedule the Following Appointments Follow Up with KELLIE CABALLERO When Within 2-4 days Why: Follow-up as needed if symptoms persist. Clear liquid diet, slowly advance as tolerated. Use Tylenol or Advil for pain and fever as needed. Use ixlq-ihf-cuvrkuq antidiarrheal medicines like Imodium as needed. Use Zofran as prescribed for nausea and vomiting as needed. Return to the ED if symptoms worsen. Where: [address] [place] [phone] Business (1) Allergies NKA Medications Please ask your primary doctor or pharmacist before taking any other medication not listed, including over the counter drugs, herbal medications, vitamins and or supplements as they may interact with your home medications. What How Much When Why Instructions Last Dose New ondansetron (Zofran 4 mg oral tablet) 1 tab(s) by mouth Every 6 hours as needed for As needed for nausea and vomiting Duration: 3 Days Printed Prescription Unchanged albuterol (ProAir HFA MDI (90 mcg/ inh) inhalation aerosol) 1 puff(s) by inhalation Every 4 hours as needed for as needed for wheezing Duration: 90 Days lack of efficacy with ventolin, dispense proair; use with spacer chamber Unchanged albuterol-ipratropium (albuterol-ipratropium 2.5 mg-0.5 mg/ 3 mL inhalation solution) 3 Milliliter by inhalation Every 4 hours as needed for as needed for shortness of breath or wheezing Exacerbation of asthma Duration: 7 Days Unchanged budesonide-formoterol (Symbicort 160 mcg-4.5 mcg/ inh Inhaler) 2 puff(s) by inhalation Two (2) times a day Duration: 90 Days Unchanged cyclobenzaprine (cyclobenzaprine 10 mg oral tablet) 1 tab(s) by mouth Three (3) times a day as needed for Muscle spasm Duration: 30 Days Unchanged divalproex sodium (Depakote 500 mg oral delayed release tablet) 1 tab(s) by mouth Two (2) times a day Unchanged DME (DME MISCellaneous) See instructions dispense one inhaler spacer chamber; dx. J45.5 Unchanged DME (DME MISCellaneous) See instructions COVID Dx U07.1; dispense one nebulizer with pipe and tubing supplies Unchanged emollients, topical (emollients (Eucerin Cream) Cream) 1 application Topical Two (2) times a day as needed for as needed for dry skin Unchanged erenumab (Aimovig SureClick Autoinjector 70 mg/ mL subcutaneous solution) 70 Milligram Subcutaneous Once a month Unchanged gabapentin (gabapentin 300 mg oral capsule) 1 cap by mouth Three (3) times a day Low back pain with sciatica Duration: 30 Days to fill on or after Unchanged galcanezumab (Emgality Prefilled Pen 120 mg/ mL subcutaneous solution) 120 Milligram Unchanged meloxicam (meloxicam 15 mg oral tablet) 1 tab(s) by mouth Once a day Duration: 90 Days Unchanged montelukast (montelukast 10 mg oral tablet) 1 tab(s) by mouth Once a day Duration: 90 Days Unchanged OXcarbazepine (OXcarbazepine 300 mg oral tablet) 2 tab(s) by mouth Two (2) times a day Unchanged predniSONE (prednisone 10mg tab (TAPER)) 85-15-91-79-56-55-5mg x 2days/dose by mouth Once a day Duration: 14 Days 9J4zrnp,9U0acny,0F3etfo,4S2swpw, 6U3tmfx,3E0uavo, 0.5X2 days. Unchanged tiotropium (Spiriva Respimat 1.25 mcg/ inh inhalation aerosol) 2 puff(s) by inhalation Once a day Duration: 90 Days Please take this list to your next doctor s visit. Bring all medications you take, including over the counter medications, herbals and other supplements with you to your doctor s visit. Patients and families are reminded to discard old lists and to update any records with all medication providers or retail pharmacies. Education Materials Nonspecific Vomiting and Diarrhea (Adult) Vomiting and diarrhea can have many causes, including: Helping your body get rid of harmful substances Gastroenteritis caused by viruses, parasites, bacteria, or toxins. Allergy to or side effect of a food or medicine Severe stress or worry (anxiety) Other illnesses It is often hard to pinpoint an exact cause, even with testing. Vomiting and diarrhea often go away within a day or two without problems. If they continue, though, they can lead to too much loss of fluid (dehydration). This can be serious if not treated. Home care Medicines You may use acetaminophen or NSAID medicines like ibuprofen or naproxen to control fever, unless another medicine was prescribed. If you have chronic liver or kidney disease, talk with your healthcare provider before using these medicines. Also talk with your provider if you've had a stomach ulcer or gastrointestinal bleeding. Don't give aspirin to anyone under 18 years of age who is ill with a fever because it may cause severe disease or . Don't use NSAID medicines if you are already taking one for another condition (like arthritis) or are on aspirin (such as for heart disease or after a stroke) Fuyz-npb-igcjxoh medicines for diarrhea, nausea, and vomiting are generally OK unless you have bleeding, fever, or severe abdominal pain. General care If symptoms are severe, rest at home for the next 24 hours, or until you are feeling better. Washing your hands with soap and water, or using alcohol-based hand inserting operator is the best way to stop the spread of infection. Wash your hands after touching anyone who is sick. Wash your hands after using the toilet and before meals. Clean the toilet after each use. Dry your hands with a single use towel. Caffeine, tobacco, and alcohol can make the diarrhea, cramping, and pain worse. Remember, caffeine not only is in coffee, but also is in chocolate, some energy drinks, and teas. Diet Water and clear liquids are important so you don't get dehydrated. Drink a small amount at a time. Don't guzzle down the drinks. That may increase your nausea, make cramping worse, and cause the drinks to come back up. Sports drinks may also help if you are healthy and not too dehydrated. They have too much sugar and not enough electrolytes and can sometimes make things worse. Also, don't drink beverages that are too acidic, like orange juice and grape juice. If you are very dehydrated, commercially available products called oral rehydration solutions are best. Food Don't force yourself to eat, especially if you have cramps, diarrhea, or vomiting. Eat just a little at a time, and then wait a few minutes before you try to eat more. Don't eat fatty, greasy, spicy, or fried foods. Don't eat dairy products if you have diarrhea. They can make it worse. During the first 24 hours (the first full day), follow the diet below: Beverages: Oral rehydration solutions, sports drinks, soft drinks without caffeine, mineral water, and decaffeinated tea and coffee Soups: Clear broth, consomm , and bouillon Desserts: Plain gelatin, popsicles, and fruit juice bars During the next 24 hours (the second day), you may add the following to the above if you are better. If not, continue what you did the first day: Hot cereal, plain toast, bread, rolls, crackers Plain noodles, rice, mashed potatoes, chicken noodle or rice soup Unsweetened canned fruit (avoid pineapple), bananas Limit fat intake to less than 15 grams per day by avoiding margarine, butter, oils, mayonnaise, sauces, gravies, fried foods, peanut butter, meat, poultry, and fish. Limit fiber. Avoid raw or cooked vegetables, fresh fruits (except bananas) and bran cereals. Limit caffeine and chocolate. No spices or seasonings except salt. During the next 24 hours: Gradually resume a normal diet, as you feel better and your symptoms improve. If at any time your symptoms start getting worse again, go back to clear liquids until you feel better. Food preparation If you have diarrhea, you should not prepare food for others. When preparing foods, wash your hands before and after. Wash your hands or use alcohol-based inserting operator after using cutting boards, countertops, and knives that have been in contact with raw food. Dry your hands with a single use towel. Keep uncooked meats away from cooked and khbmc-tj-gju foods. Follow-up care Follow up with your healthcare provider, or as advised. Call if you don't get better in the next 2 to 3 days. If a stool (diarrhea) sample was taken, or cultures done, you will be told if they are positive, or if your treatment needs to be changed. You may call as directed for the results. If X-rays were taken, you will be notified of any new findings that may affect your care Call 911 Call 911 if any of these occur: Trouble breathing Chest pain Confusion Severe drowsiness or trouble awakening Fainting or loss of consciousness Rapid heart rate Seizure Stiff neck Severe weakness, dizziness, or lightheadedness When to seek medical advice Call your healthcare provider right away if any of these occur: Bloody or black vomit or stools Severe, steady abdominal pain or any abdominal pain that is getting worse Severe headache or stiff neck An inability to hold down even sips of liquids for more than 12 hours Vomiting that lasts more than 24 hours Diarrhea that lasts more than 24 hours Fever of 100.4 F (38.0 C) or higher, or as directed by your healthcare provider Yellowish color to your skin or the whites of your eyes Signs of dehydration, such as dry mouth, little urine (less than every 6 hours), or very dark urine [id number] [employer]. [address] [place] [address], [place] [address]. All rights reserved. This information is not intended as a substitute for professional medical care. Always follow your healthcare professional's instructions. Additional Information VACCINATE! IT SAVES LIVES! Members of the community who have not yet received the COVID-19 vaccine and would like to receive it can visit one of [facility] vaccine clinics. There are many vaccine clinic locations within the [facility]. For locations and available times, please visit [email or web address] It is important to note that some COVID mobile vaccine clinics are held outdoors and may be canceled in rainy or stormy conditions. To learn more about pediatric vaccinations (ages 5-11), we invite you to visit the [facility] webpage. [email or web address] To learn more about the COVID-19 vaccine, we invite you to visit the CDC website for a list of frequently asked questions. https://www.cdc.gov/coronavirus/ 2019-ncov/vaccines/faq.html [employer] Patient Portal Access Instructions: Stay connected with your healthcare team and access your personal medical information anytime with the [facility] Patient Portal. If you would like a full copy of your medical records please contact the [facility] Medical Records Department Thursday through Thursday between 8a.m. and 4:30p.m. Please follow the directions below to access the portal: 1.Access the email account you provided upon registration to the hospital.2.Look for an invitation email from [facility].3.Open the email and access the invitation link: Accept Invitation to [facility]4.Fill in the required cary to create your account. Sign into www.[employer] with your username and password that you created in the above steps to stay up to date. You can then view a summary of results, a summary of your visits, and the ability to download your summaries to your computer or send the information securely to a physician. Remember that your healthcare information is confidential, so carefully consider who you will allow to register on the [facility] Patient Portal for access to your information. You can also access the [facility] Patient Portal on the [employer] ken. Simply click on Health Records under Health Data and then click on the [facility] logo. HOW TO SAFELY DISPOSE OF PRESCRIPTION MEDICATIONS Please use one of the following methods to safely dispose of your unused medications. 1.Use a drug disposal kit: the drug disposal pouch allows you to safely discard your old and unused drugs. Ask your nurse to give you one when you are discharged.2.Visit a local take-back location: Many local pharmacies and police departments have programs that collect old and unwanted prescription drugs. Call your local pharmacy or go to http://[employer]/8M0Wj9z to find one close to you.3.Make use of household items: Use cat litter or old coffee grounds to dispose medications if other options are not available. Mix your drugs with these household products, seal them in an airtight container and throw it into the garbage. Call [facility]: [phone] to be sure your drugs can be disposed of in this way. Some medicines may require a different approach.4.Never flush your medications down the toilet. IF YOU HAVE BEEN PRESCRIBED AN OPIOIDS FOR PAIN If you have been prescribed an opioid (such as hydrocodone, oxycodone or morphine), it is critical to understand the possible side effects and risks of opioid pain medications. Even when taken as directed, opioids can have several side effects including: Tolerance, meaning you might need to take more of a medication for the same pain relief. Nausea, vomiting and/or constipation. Sleepiness, dizziness, dry mouth, confusion, depression or itching. Physical dependence, meaning you have withdrawal symptoms when a medication is stopped ? this can develop within a few days. KNOW YOUR RESPONSIBILITIES It is important to know exactly how much and how often to take the opioid pain medications you are prescribed. Never take opioids in higher amounts or more often than prescribed. Do not combine opioids with alcohol or other drugs that cause drowsiness, such as benzodiazepines, also known as benzos, including diazepam and alprazolam, muscle relaxants or sleep aids. Never sell or share prescription opioids. This is illegal. Store opioids in a secure place and out of reach of others (including children, family, friends and visitors). The last page(s) of this document has been signed and retained as a CHART COPY Signatures Patient Education Materials Vomiting and Diarrhea, Nonspecific (Adult) Medication Leaflets My discharge plan and instructions have been reviewed and explained to me and I,DAHLIA CHOE understand my current condition and have read and understand these discharge instructions. I have received a written copy of the plan/instructions. If I have questions, I am aware that I should contact my doctor. Patient/Yarn Handler Signature: Date/Time: Relationship to Patient: Witness Name/Signature: Date/Time: [facility] 02-22-2023 Note SINUS RHYTHM BORDERLINE T WAVE ABNORMALITIES Electronic Signature: ODALIS CERVANTES MD 02/22/2023 18:37:24 [facility] 04-17-2022 Note ORIGINAL HISTORY: Short of breath, cough, fever COMPARISON: 22 February 2022 FINDINGS: The lungs and pleural spaces are clear. The pulmonary vasculature is unremarkable in appearance. The cardiac silhouette is within normal size limits. IMPRESSION: Clear lungs. Interpreted by: Dann He MD Preliminary Report By: Dann He MD Electronically signed By Dann He MD Dictated Date: 04/17/2022 9:15:04 AM Prelim Date: 04/17/2022 9:16:06 AM Sign Date: 04/17/2022 9:16:06 AM Ordering Provider: [facility] 04-17-2022 Note ORIGINAL HISTORY: Short of breath, cough, fever COMPARISON: 22 February 2022 FINDINGS: The lungs and pleural spaces are clear. The pulmonary vasculature is unremarkable in appearance. The cardiac silhouette is within normal size limits. IMPRESSION: Clear lungs. Interpreted by: Dann He MD Preliminary Report By: Dann He MD Electronically signed By Dann He MD Dictated Date: 04/17/2022 9:15:04 AM Prelim Date: 04/17/2022 9:16:06 AM Sign Date: 04/17/2022 9:16:06 AM Ordering Provider: [facility] 06-24-2021 Hospital Discharg e instructions Patient Education 06/24/2021 10:49:03 Asthma, Acute (Adult) Asthma (Adult) Asthma is a disease where the medium and small air passages within the lung go into spasm and restrict the flow of air. Inflammation and swelling of the airways cause further blockage. During an acute asthma attack, these factors cause trouble breathing, wheezing, cough and chest tightness. An asthma attack can be triggered by many things. Common triggers include infections such as the common cold, bronchitis, and pneumonia. Irritants such as smoke or pollutants in the air, very cold air, emotional upset, and exercise can also trigger an attack. In many adults with asthma, allergies to dust, mold, pollen and animal dander can cause an asthma attack. Skipping doses of daily asthma medicine can also bring on an asthma attack. Asthma can be controlled using the proper medicines prescribed by your healthcare provider and avoiding exposure to known triggers including allergens and irritants. Home care Take prescribed medicine exactly at the times advised. If you need medicine such as from a hand held inhaler or aerosol breathing machine more than every 4 hours, contact your healthcare provider or seek immediate medical attention. If prescribed an antibiotic or prednisone, take all of the medicine as prescribed, even if you are feeling better after a few days. Don't smoke. Avoid being exposed to the smoke of others. Some people with asthma have worsening of their symptoms when they take aspirin and non-steroidal or fever-reducing medicines like ibuprofen and naproxen. Talk to your healthcare provider if you think this may apply to you. Follow-up care Follow up with your healthcare provider, or as advised. Always bring all of your current medicines to any appointments with your healthcare provider. Also bring a complete list of medicines even those not taken for asthma. If you don't already have one, talk to your healthcare provider about developing your own Asthma Action Plan. A pneumococcal (pneumonia) vaccine and yearly flu shot (every fall) are recommended. Ask your doctor about this. When to seek medical advice Call your healthcare provider right away if any of these occur: Increased wheezing or shortness of breath Need to use your inhalers more often than usual without relief Fever of 100.4 F (38 C) or higher, or as directed by your healthcare provider Coughing up lots of dark-colored or bloody sputum (mucus) Chest pain with each breath If you use a peak flow meter as part of an Asthma Action Plan, and you are still in the yellow zone (50% to 80%) 15 minutes after using inhaler medicine. Call 911 Call 911 if any of the following occur Trouble walking or talking because of shortness of breath If you use a peak flow meter as part of an Asthma Action Plan and you are still in the red zone (less than 50%) 15 minutes after using inhaler medicine Lips or fingernails turning psoada or blue [phone] [employer]. [address] [place] [address]97. All rights reserved. This information is not intended as a substitute for professional medical care. Always follow your healthcare professional's instructions. Follow Up Care 06/24/2021 08:07:58 With:KELLIE CABALLERO DO Address: [phone] When:2-4 days [facility] Evaluation + Plan note Future Appointments Appointment Date:07/24/2021 02:00:00 PM Scheduled Provider:KELLIE CABALLERO DO Location:[facility] Appointment Type:PC OV Future Scheduled TestsProstate Specific Antigen 06/18/21Urinalysis 06/18/21A1C Hemoglobin 06/18/21Complete Blood Count 06/18/21Lipid Profile 06/18/21Complete Metabolic Panel 06/18/21 [facility] Evaluation + Plan note Future Appointments Appointment Date:06/23/2022 09:00:00 AM Scheduled Provider:KELLIE CABALLERO DO Location:[facility] Appointment Type:PC Wellness Annual Future Scheduled TestsLipid Profile 06/29/22Complete Metabolic Panel 06/29/22 [facility] Evaluation + Plan note Future Appointments Appointment Date:05/23/2022 11:30:00 AM Scheduled Provider:KELLIE CABALLERO DO Location:[facility] Appointment Type:PC OV Appointment Date:06/23/2022 09:00:00 AM Scheduled Provider:KELLIE CABALLERO DO Location:[facility] Appointment Type:PC Wellness Annual Future Scheduled TestsLipid Profile 06/29/22Complete Metabolic Panel 06/29/22 [facility] Evaluation + Plan note Future Appointments Appointment Date:03/12/2023 08:00:00 AM Scheduled Provider:KELLIE CABALLERO DO Location:[facility] Appointment Type:PC OV Follow Up Future Scheduled TestsLipid Profile 06/29/22Complete Metabolic Panel 06/29/22 [facility] Evaluation + Plan note Future Appointments Appointment Date:04/16/2023 04:00:00 PM Scheduled Provider:KELLIE CABALLERO DO Location:[facility] Appointment Type:PC OV Follow Up Future Scheduled TestsLipid Profile 06/29/22Complete Metabolic Panel 06/29/22 [facility] Hospital course Narrative No data available for this section [facility] Hospital Discharge instructions No data available for this section [facility] Progress note No data available for this section [facility] Summary Purpose Family History No Family History Records Found No data available for this section No data available for this section No data available for this section No Family History Records Found Advance Directives No Advanced Directives Records FoundNo Advanced Directives Records Found Additional Source Comments (unrecognized sect ion and content) No Status Records FoundNo Status Records Found INFORMATION SOURCE (unrecogn ized section and content) DATE CREATED AUTHOR AUTHOR'S ORGANIZ ATION 04/17/2023 [facility] Care Team (unrecognized sect ion and content) Care Team Personnel Name: KELLIE CABALLERO DO Position: P4 Physician - Primary Care Member Role: Primary Care Physician Address: Address: [address] [place] [address] Name: KERVIN SALEH PA-C Position: ED Physician Barrel Endshaker Adjuster Member Role: ED PA Address: Address: [address] [place] [address] Care Team Related Persons Name: BLAIR HAMMOND Name: RAMOS CHOE Name: RENATA CHOE Care Team Personnel Name: KELLIE CABALLERO DO Position: P4 Physician - Primary Care Member Role: Primary Care Physician Address: Address: [address] [place] [address] Care Team Related Persons Name: BLAIR HAMMOND Name: RAMOS CHOE Name: RENATA CHOE Care Team Personnel Name: KELLIE CABALLERO DO Position: P4 Physician - Primary Care Member Role: Primary Care Physician Address: Address: [address] [place] [address] Care Team Related Persons Name: BLAIR HAMMOND Name: RAMOS CHOE Name: RENATA CHOE Patient Care team informatio n (unrecognized section and content) Care Team Personnel Name: KELLIE CABALLERO DO Position: P4 Physician - Primary Care Member Role: Primary Care Physician Address: Address: [address] [place] [address] Care Team Related Persons Name: BLAIR HAMMOND Name: RAMOS CHOE Name: RENATA CHOE Care Team Personnel Name: KELLIE CABALLERO DO Position: P4 Physician - Primary Care Member Role: Primary Care Physician Address: Address: [address] [place] [address] Name: ODALIS CERVANTES MD Position: ED Physician Member Role: Attending Physician Address: Address: [facility] [address] Name: KERVIN SALEH PA-C Position: ED Advanced Compensation And Hris Analyst Member Role: Physician Barrel Endshaker Adjuster Address: Address: [address] [place] [address] Care Team Related Persons Name: BLAIR HAMMOND Name: RAMOS CHOE Name: RENATA CHOE Care Team Personnel Name: KELLIE CABALLERO DO Position: P4 Physician - Primary Care Member Role: Primary Care Physician Address: Address: [address] [place] [address] Name: TASNEEM HERRERA DO Position: ED Physician Member Role: Attending Physician Address: Address: [facility] [address] [place] [id number] Name: Janelle Ford RN Position: RN Member Role: ED RN Care Team Related Persons Name: BLAIR HAMMOND Name: RAMOS CHOE Name: RENATA CHOE FOR RECORDS PERTAINING TO PATIENTS WHO ARE OR HAVE BEEN ENROLLED IN A CHEMICAL DEPENDENCY/SUBSTANCEABUSE PROGRAM, SOME INFORMATION MAY BE OMITTED. This clinical summary was aggregated from multiple sources. Caution should be exercised in using it in the provision of clinical care. This summary normalizes information from multiple sources, and as a consequence, information in this document may materially change the coding, format and clinical context of patient data. In addition, data may be omitted in some cases. CLINICAL DECISIONS SHOULD BE BASED ON THE PRIMARY CLINICAL RECORDS. [facility] [employer] [facility]. provides no warranty or guarantee of the accuracy or completeness of information in this document.
== END 2023-05-01 09:16 | disposition home or self-care (01) ==
LOC: MEDOUTP 09:15
PROVIDERS: PCP Student in an Organized Health Care Education/Training Program; Referring Provider Nurse Practitioner Acute Care; Visit Provider Nurse Practitioner Acute Care
DX: J45.50 Severe persistent asthma, uncomplicated (principal)
CPT/HCPCS: 96372; J2357

== ENCOUNTER 2024-01-01 10:57 | Outpatient (CLI) | payer MEDICAID, SELFPAY ==
[2024-01-01 11:04] VITALS: BP 122/79; PULSE 73; RESP 18; TEMP 36.4; O2SAT 97; BMI 25.8
[2024-01-01] MEDS: Omalizumab 150 MG/ML Syringe SQ (11:07)
== END 2024-01-01 23:59 | disposition home or self-care (01) ==
LOC: MEDOUTP 10:57
PROVIDERS: PCP Student in an Organized Health Care Education/Training Program; Referring Provider Nurse Practitioner Acute Care; Visit Provider Nurse Practitioner Acute Care
DX: J45.50 Severe persistent asthma, uncomplicated (principal)
CPT/HCPCS: 96372; J7040; A4216; J2357

== ENCOUNTER 2024-01-29 09:10 | Outpatient (CLI) | payer MEDICAID, SELFPAY ==
[2024-01-29 09:19] VITALS: BP 135/76; PULSE 73; RESP 16; O2SAT 97; BMI 22.8
[2024-01-29] MEDS: Omalizumab 150 MG/ML Syringe SQ (09:37)
== END 2024-01-29 23:59 | disposition home or self-care (01) ==
LOC: MEDOUTP 09:10
PROVIDERS: PCP Student in an Organized Health Care Education/Training Program; Referring Provider Nurse Practitioner Acute Care; Visit Provider Nurse Practitioner Acute Care
DX: J45.50 Severe persistent asthma, uncomplicated (principal)
CPT/HCPCS: 96372; J2357

== ENCOUNTER 2024-03-04 08:34 | Outpatient (CLI) | payer MEDICAID, SELFPAY ==
[2024-03-04 08:57] VITALS: BP 128/83; PULSE 70; RESP 16; TEMP 35.9; O2SAT 96; BMI 23.6
[2024-03-04] MEDS: Omalizumab 150 MG/ML Syringe SQ (09:08)
== END 2024-03-04 23:59 | disposition home or self-care (01) ==
LOC: MEDOUTP 08:34
PROVIDERS: PCP Student in an Organized Health Care Education/Training Program; Referring Provider Nurse Practitioner Acute Care; Visit Provider Nurse Practitioner Acute Care
DX: J45.50 Severe persistent asthma, uncomplicated (principal)
CPT/HCPCS: 96372; J2357

== ENCOUNTER 2024-04-01 08:42 | Outpatient (CLI) | payer MEDICAID, SELFPAY ==
[2024-04-01 08:55] VITALS: BP 124/73; PULSE 73; RESP 16; TEMP 35.9; O2SAT 97; BMI 23.6
[2024-04-01] MEDS: Omalizumab 150 MG/ML Syringe SQ (08:58)
== END 2024-04-01 23:59 | disposition home or self-care (01) ==
LOC: MEDOUTP 08:42
PROVIDERS: PCP Student in an Organized Health Care Education/Training Program; Referring Provider Nurse Practitioner Acute Care; Visit Provider Nurse Practitioner Acute Care
DX: J45.50 Severe persistent asthma, uncomplicated (principal)
CPT/HCPCS: 96372; J2357

== ENCOUNTER 2024-05-06 10:08 | Outpatient (CLI) | payer MEDICAID, SELFPAY ==
[2024-05-06 10:15] VITALS: BP 116/66; PULSE 60; RESP 16; TEMP 36.3; O2SAT 98
[2024-05-06] MEDS: Omalizumab 150 MG/ML Syringe SQ (10:46)
== END 2024-05-06 23:59 | disposition home or self-care (01) ==
LOC: MEDOUTP 10:08
PROVIDERS: PCP Student in an Organized Health Care Education/Training Program; Referring Provider Nurse Practitioner Acute Care; Visit Provider Nurse Practitioner Acute Care
DX: J45.50 Severe persistent asthma, uncomplicated (principal)
CPT/HCPCS: 96372; J2357

== ENCOUNTER 2024-06-03 08:23 | Outpatient (CLI) | payer MEDICAID, SELFPAY ==
[2024-06-03 08:33] VITALS: BP 144/71; PULSE 68; RESP 16; TEMP 36.1; O2SAT 94; BMI 25.1
[2024-06-03] MEDS: Omalizumab 150 MG/ML Syringe SQ (08:57)
== END 2024-06-03 23:59 | disposition home or self-care (01) ==
LOC: MEDOUTP 08:23
PROVIDERS: PCP Student in an Organized Health Care Education/Training Program; Referring Provider Nurse Practitioner Acute Care; Visit Provider Nurse Practitioner Acute Care
DX: J45.50 Severe persistent asthma, uncomplicated (principal)
CPT/HCPCS: 96372; J2357

== ENCOUNTER 2024-07-01 09:44 | Outpatient (CLI) | payer MEDICAID, SELFPAY ==
[2024-07-01 09:56] VITALS: BP 110/56; PULSE 56; RESP 16; TEMP 36.5; O2SAT 97; BMI 27.8
[2024-07-01] MEDS: Omalizumab 150 MG/ML Syringe SQ (10:07)
== END 2024-07-01 23:59 | disposition home or self-care (01) ==
LOC: MEDOUTP 09:44
PROVIDERS: PCP Student in an Organized Health Care Education/Training Program; Referring Provider Nurse Practitioner Acute Care; Visit Provider Nurse Practitioner Acute Care
DX: J45.50 Severe persistent asthma, uncomplicated (principal)
CPT/HCPCS: 96372; J2357

== ENCOUNTER 2024-07-29 09:47 | Outpatient (CLI) | payer MEDICAID, SELFPAY ==
[2024-07-29 09:57] VITALS: BP 129/64; PULSE 56; RESP 16; TEMP 35.8; O2SAT 95; BMI 25.8
[2024-07-29] MEDS: Omalizumab 150 MG/ML Syringe SQ (10:04)
== END 2024-07-29 23:59 | disposition home or self-care (01) ==
LOC: MEDOUTP 09:47
PROVIDERS: PCP Student in an Organized Health Care Education/Training Program; Referring Provider Nurse Practitioner Acute Care; Visit Provider Nurse Practitioner Acute Care
DX: J45.50 Severe persistent asthma, uncomplicated (principal)
CPT/HCPCS: 96372; J2357

== ENCOUNTER 2024-09-09 09:54 | Outpatient (CLI) | payer MEDICAID, SELFPAY ==
[2024-09-09 10:09] VITALS: BP 127/64; PULSE 60; RESP 16; TEMP 35.9; O2SAT 94; BMI 26.6
[2024-09-09] MEDS: Omalizumab 150 MG/ML Syringe SC (10:21)
--- OUTSIDE RECORDS SUMMARY | 2024-09-09 15:20 | XMS RPT_ITS | CCD ---
Author Organization [facility] Care Team Providers Care Assembler Wet Wash Name Role Phone Kelly Candelario Unavailable Unavailable KELLIE CABALLERO DO Primary Care Physician [phone] Dr. Uche Segura Attending Provider Dr. Uche Segura Referring Provider Dr. Uche Segura Other Provider Dr. Kellie Caballero Primary Care Provider [phone] Dr. Nicolás Ross Attending Provider [phone] Nicky POCKET ASSEMBLER, POCKET ASSEMBLER-C Rosanna Attending Provider Dr. Kellie Caballero Primary Care Provider [phone] Dr. Kellie Caballero Referring Provider [phone] Dr. Uche Segura Attending Provider [phone] Kellie Caballero Primary Care Provider Dr. Kellie Caballero Referring Provider Nicky POCKET ASSEMBLER, POCKET ASSEMBLER-C Rosanna Attending Provider ALBERTO HOGAN MD Attending Unavailable HALKO DO, KELLIE Primary Care Unavailable HALKO DO, KELLIE Primary Care Unavailable NEDDO PERSONNEL RESEARCH SCIENTIST-COAT BASTERANA Attending Unavaila ble HALKO DO, KELLIE Primary Care Unavailable ODALIS CERVANTES MD Attending Unavailable HALKO DO, KELLIE Primary Care Unavailable NEDDO PERSONNEL RESEARCH SCIENTIST-COAT BASTERANA Attending Unavaila ble MCKEEN DO, ARMANI NEWTON Attending Unavail able HALKO DO, KELLIE Primary Care Unavailable MCKEEN DO, ARMANI NEWTON Attending Unavail able HALKO DO, KELLIE Primary Care Unavailable MCKEEN DO, ARMANI NEWTON Attending Unavail able HALKO DO, KELLIE Primary Care Unavailable MCKEEN DO, ARMANI NEWTON Attending Unavail able HALKO DO, KELLIE Primary Care Unavailable RIDER DO, DR TASNEEM Trevino Attending Unavailable HALKO DO, KELLIE Primary Care Unavailable MCKEEN DO, ARMANI NEWTON Attending Unavail able HALKO DO, KELLIE Primary Care Unavailable NECCI DO, KELLIE Attending Unavailable HALKO DO, KELLIE Primary Care Unavailable HALKO DO, KELLIE Primary Care Unavailable NEDDO PERSONNEL RESEARCH SCIENTIST-COAT BASTER, ANA Espana Attending Unavaila ble MCKEEN DO, ARMANI NEWTON Attending Unavail able HALKO DO, KELLIE Primary Care Unavailable HALKO DO, KELLIE Primary Care Unavailable NEDDO PERSONNEL RESEARCH SCIENTIST-COAT BASTER, ANA [place] Attending Unavaila ble HALKO DO, KELLIE Primary Care Unavailable JAYNE WOOTEN MD Attending Unavailable HALKO DO, KELLIE Primary Care Unavailable KYLEE SIMON, BEBO Trevino Attending Unavailab le HALKO DO, KELLIE Primary Care Unavailable BASHIR CHATMAN, CHETAN Attending Unavailable CHETAN CAMEJO MD Attending Unavailable HALKO DO, KELLIE Primary Care Unavailable HALKO DO, KELLIE Primary Care Unavailable CHETAN CAMEJO MD Attending Unavailable Priscilla INIGUEZ, Dr. Chandler Primary Care Provider Saunders POCKET ASSEMBLER-C, Rosanna Attending Provider Saunders POCKET ASSEMBLER-C, Rosanna Referring Provider Dr. Kellie Caballero DO Referring Provider [phone] Halko, Kellie Primary Care Unavailable Saunders POCKET ASSEMBLER, Rosanna Referring Unavailable Saunders POCKET ASSEMBLER, Rosanna Attending Unavailable Saunders POCKET ASSEMBLER, Rosanna Referring Unavailable Saunders POCKET ASSEMBLER, Rosanna Attending Unavailable Halko, Kellie Primary Care Unavailable Saunders POCKET ASSEMBLER, Rosanna Referring Unavailable Saunders POCKET ASSEMBLER, Rosanna Attending Unavailable Halko, Kellie Primary Care Unavailable Saunders POCKET ASSEMBLER, Rosanna Attending Unavailable Saunders POCKET ASSEMBLER, Rosanna Referring Unavailable Halko, Kellie Primary Care Unavailable Saunders POCKET ASSEMBLER, Rosanna Attending Unavailable Saunders POCKET ASSEMBLER, Rosanna Referring Unavailable Halko, Kellie Primary Care Unavailable Saunders POCKET ASSEMBLER, Rosanna Referring Unavailable Saunders POCKET ASSEMBLER, Rosanna Attending Unavailable Halko, Kellie Primary Care Unavailable Saunders POCKET ASSEMBLER, Rosanna Referring Unavailable Saunders POCKET ASSEMBLER, Rosanna Attending Unavailable Halko, Kellie Primary Care Unavailable Saunders POCKET ASSEMBLER, Rosanna Attending Unavailable Halko, Kellie Referring Unavailable Halko, Kellie Primary Care Unavailable Saunders POCKET ASSEMBLER, Rosanna Attending Unavailable Halko, Kellie Primary Care Unavailable Halko, Kellie Referring Unavailable Saunders POCKET ASSEMBLER, Rosanna Referring Unavailable Saunders POCKET ASSEMBLER, Rosanna Attending Unavailable Halko, Kellie Primary Care Unavailable Halko, Kellie Primary Care Unavailable Saunders POCKET ASSEMBLER, Rosanna Referring Unavailable Saunders POCKET ASSEMBLER, Rosanna Attending Unavailable Medications Current Medications Medication Drug Class(es) Dates Sig (Normalized) Sig (Original) Aimovig SureClick Autoinjector 70 mg/mL subcutaneous solution (1 source) Start: 06-18-2021 inject 1 dose by subcutaneous injection every month Aimovig SureClick Autoinjector 70 mg/mL subcutaneous solution Dose : 70 mg =, Subcutaneous, qmonth, # 1 mL, 0 Refill(s) Start Date: 06/18/21 Status: Ordered albuterol 0.833 mg/ml / ipratropium bromide 0.167 mg/ml inhalation solution (14 sources) Anticholinergic, beta2-Adrenergic Agonist Start: 10-03-2022 End: 12-25-2022 take 1 mL by inhalation every four hours as needed for wheezing Ipratropium-Albuter ol 0.5 mg-3 mg(2.5 mg base)/3 mL solution for nebulization Active 3 mL INHALATION Q4H as needed for shortness of breath or wheezing 180 December 25, 2022 9:30am Start: 10-03-2022 End: 01-22-2023 take 1 mL by inhalation every four hours Ipratropium-Albuterol Active 3 ML INHALATION Q4H 180 December 25, 2022 8:30am Start: 09-16-2022 End: 09-23-2022 take 1 dose by inhalation every four hours as needed for wheezing albuterol-ipratropium 2.5 mg-0.5 mg/3 mL inhalation solution Dose = 3 mL, Inhalation, q4h, PRN as needed for shortness of breath or wheezing, # 180 mL, 0 Refill(s), [facility]: [id number], Exacerbation of asthma, 175.3, cm, 09/16/22 10:43:00 EDT, Height, kg, 09/16/22 10:43:00 EDT, Dosing Weight Start Date: 09/16/22 Stop Date: 09/23/22 Status: Ordered Start: 02-05-2022 End: 02-12-2022 take 1 dose by inhalation every four hours as needed for wheezing albuterol-ipratropium 2.5 mg-0.5 mg/3 mL inhalation solution Dose = 3 mL, Inhalation, q4h, PRN as needed for shortness of breath or wheezing, # 180 mL, 0 Refill(s), Exacerbation of asthma Start Date: 02/05/22 Stop Date: 02/12/22 Status: Ordered Albuterol-Budesonide (Airsup ra) 90-80 mcg/actuation HFA aerosol inhaler (2 sources) Start: 04-25-2024 Albuterol-[place] sonide (Airsupra) 90-80 mcg/actuation HFA aerosol inhaler Active 2 NMA INHALATION THREE TIMES A DAY as needed for shortness of breath 10.7 April 25, 2024 3:04pm as a single dose; may repeat up to 6 doses per day (12 inhalations) Start: 10-12-2023 End: 04-25-2024 Albuterol-Budesonide (Airsup ra) 90-80 mcg/actuation HFA aerosol inhaler Discontinued 2 NMA INHALATION THREE TIMES A DAY as needed for shortness of breath 10.7 October 12, 2023 12:00am April 25, 2024 3:04pm as a single dose; may repeat up to 6 doses per day (12 inhalations) amoxicillin 875 mg oral tablet (1 source) Penicillin-class Antibacterial Start: 04-10-2023 End: 04-15-2023 amoxicillin 875 mg oral tablet Dose : 875 mg = 1 tab(s), Oral, BID, X 5 day(s), # 10 tab(s), 0 Refill(s), 04/15/23 4:29:00 PM EST Start Date: 04/10/23 Stop Date: 04/15/23 Status: Ordered ARIPiprazole 5 mg oral tablet (1 source) Atypical Antipsychotic Start: 01-29-2024 take 1 tablet by mouth once daily Aripiprazole (Abilify) 5 mg tablet Active 5 mg PO DAILY January 29, 2024 12:00am benzonatate 200 mg oral capsule (1 source) Non-narcotic Antitussive Start: 04-10-2023 End: 05-08-2023 benzonatate 200 mg oral capsule Dose : 200 mg = 1 cap(s), Oral, TID, X 14 day(s), # 42 cap(s), 1 Refill(s), 05/08/23 12:04:00 PM EST, [facility]: [id number], 175.3, cm, 01/15/23 14:25:00 EDT, Height, kg, 03/25/23 10:02:00 EST, Dosing Weight Start Date: 04/10/23 Stop Date: 05/08/23 Status: Ordered Breo Ellipta 100 mcg-25 mcg/inh inhalation powder (1 source) Start: 01-03-2019 Breo Ellipta 100 mcg-25 mcg/inh inhalation powder Start Date: 01/03/19 Status: Ordered Budesonide-Formote rol (8 sources) Corticosteroid, beta2-Adrenergic Agonist Start: 03-16-2023 Budesonide-Formot yudy (Symbicort) 160-4.5 mcg/actuation HFA aerosol inhaler Active 2 NMA INHALATION TWICE A DAY 10.2 March 16, 2023 9:16am Start: 03-16-2023 take 1 puff(s) by in halation twice daily Budesonide-Formoterol (Symbicort) 160-4.5 mcg/actuation HFA aerosol inhaler Active 2 PUFF INHALATION TWICE A DAY 10.2 March 16, 2023 8:16am Start: 10-03-2022 End: 03-16-2023 Budesonide-Formoterol (Symbi shalom) 160-4.5 mcg/actuation HFA aerosol inhaler Discontinued 2 NMA INHALATION TWICE A DAY October 03, 2022 12:00am March 16, 2023 9:17am Start: 10-03-2022 End: 03-16-2023 take 1 puff(s) by inhalation twice daily Budesonide-Formoterol (Symbicort) 160-4.5 mcg/actuation HFA aerosol inhaler Discontinued 2 PUFF INHALATION TWICE A DAY October 02, 2022 11:00pm March 16, 2023 8:17am Start: 10-03-2022 take 1 puff(s) by in halation twice daily Budesonide-Formoterol (Symbicort) 160-4.5 mcg/actuation HFA aerosol inhaler Active 2 PUFF INHALATION TWICE A DAY October 03, 2022 12:00am buprenorphine 8 mg / naloxone 2 mg sublingual film (1 source) Partial Opioid Agonist, Opioid Antagonist Start: 03-04-2024 Buprenorphine-Naloxone (Suboxone) 8-2 mg film Active 1 NMA SL TWICE A DAY March 04, 2024 1:00am cyclobenzaprine hydrochloride 10 mg oral tablet (9 sources) Muscle Relaxant Start: 09-16-2022 End: 04-15-2023 take 1 tablet by mouth three times daily as needed for muscle spasms Cyclobenzaprine 10 mg tablet Active 10 mg PO THREE TIMES A DAY as needed for muscle spasm October 03, 2022 12:00am Start: 05-02-2022 End: 05-16-2022 cyclobenzaprine 10 mg oral t ablet Dose : 10 mg = 1 tab(s), Oral, TID, PRN for muscle spasm, X 14 day(s), # 42 tab(s), 0 Refill(s), 05/16/22 11:37:00 EST, [facility]: [id number], 175, cm, 05/02/22 10:56:00 EST, Height Start Date: 05/02/22 Stop Date: 05/16/22 Status: Ordered dextromethorphan hydrobromide 3 mg/ml / promethazine hydrochloride 1.25 mg/ml oral solution (1 source) Phenothiazine, Uncompetitive D-flqcus-M-aspartate Receptor Antagonist, Sigma-1 Agonist Start: 04-10-2023 End: 04-24-2023 take 1 dose by mouth every six hours as needed for cough dextromethorphan-promethazine 15 mg-6.25 mg/5 mL oral syrup Dose = 5 mL, Oral, q6h, PRN for cough, X 7 day(s), # 250 mL, 1 Refill(s), [facility]: [id number], 175.3, cm, 01/15/23 14:25:00 EDT, Height, kg, 03/25/23 10:02:00 EST, Dosing Weight Start Date: 04/10/23 Stop Date: 04/24/23 Status: Ordered DME MISCellaneous (12 sources) Start: 11-18-2022 DME MISCellaneous See Instructions, dispense one inhaler spacer chamber; dx. J45.5, # 1 EA, 0 Refill(s), [facility]: [id number], 175.3, cm, 09/16/22 10:43:00 EDT, Height, 73.2, kg, 11/03/22 17:05:00 EDT, Dosing Weight Start Date: 11/18/22 Status: Ordered Start: 12-30-2021 DME MISCellane ous See Instructions, dispense one inhaler spacer chamber; dx. J45.5, # 1 EA, 0 Refill(s), [facility]: [facility], 175, cm, 12/30/21 13:32:00 EDT, Height, 65.8 Start Date: 12/30/21 Status: Ordered Start: 08-26-2021 DME MISCellane ous See Instructions, Dx U07.1; dispense one nebulizer with pipe and tubing supplies, # 1 EA, 0 Refill(s), Pharmacy: [address], 175, cm, 06/18/21 13:58:00 EDT, Height, 66.5 Start Date: 08/26/21 Status: Ordered Dulera 200 mcg-5 mcg/inh Metered Dose Inhaler (3 sources) Start: 12-30-2021 End: 06-28-2022 take 1 dose by mouth twice daily Dulera 200 mcg-5 mcg/inh Metered Dose Inhaler Dose = 2 puff(s), Inhalation, BID, rinse mouth and throat after use, # 3 EA, 1 Refill(s), [facility]: [facility], 175, cm, 12/30/21 13:32:00 EDT, Height, kg, 12/30/21 13:32:00 EDT, Dosing Weight Start Date: 12/30/21 Stop Date: 06/28/22 Status: Ordered Start: 06-18-2021 End: 09-16-2021 take 1 dose by mouth twice daily Dulera 200 mcg-5 mcg/inh Metered Dose Inhaler Dose = 2 puff(s), Inhalation, BID, rinse mouth and throat after use, # 3 EA, 0 Refill(s), [facility]: [facility], 175, cm, 06/18/21 13:58:00 EDT, Height, kg, 06/18/21 13:58:00 EDT, Dosing Weight Start Date: 06/18/21 Stop Date: 09/16/21 Status: Ordered emollients (Eucerin Cream) Eusebio serna (3 sources) Start: 01-15-2023 emollients (Eu cerin Cream) Cream Apply 1 ken, Topical, BID, PRN as needed for dry skin, # 454 gram(s), 1 Refill(s), [facility]: [facility], Cream, 175.3, cm, 01/15/23 14:25:00 EDT, Height, 76.9, kg, 01/15/23 14:25:00 EDT, Dosing Weight Start Date: 01/15/23 Status: Ordered Start: 11-03-2022 emollients (Eu cerin Cream) Cream Apply 1 ken, Topical, BID, PRN as needed for dry skin, # 454 gram(s), 1 Refill(s), [facility]: [facility], Cream, 175.3, cm, 09/16/22 10:43:00 EDT, Height, 72.5, kg, 09/16/22 10:43:00 EDT, Dosing Weight Start Date: 11/03/22 Status: Ordered fluconazole 100 mg oral tablet (2 sources) Azole Antifungal Start: 06-10-2024 take 1 tablet by mouth once daily Fluconazole 100 mg tablet Active 100 mg PO daily June 10, 2024 1:00am Start: 12-11-2023 End: 03-04-2024 take 1 tablet by mouth once daily Fluconazole 100 mg tablet Discontinued 100 mg PO daily December 11, 2023 12:00am March 04, 2024 9:55am gabapentin 300 mg oral capsule (9 sources) Anti-epileptic Agent Start: 09-16-2022 End: 04-15-2023 take 1 capsule by mouth three times daily Gabapentin 300 mg capsule Active 300 mg PO THREE TIMES A DAY October 03, 2022 12:00am Start: 05-02-2022 gabapentin 300 mg oral capsule Dose : 300 mg = 1 cap(s), Oral, TID, to fill on or after 05/02/22, # 90 cap(s), 0 Refill(s), [facility]: [facility], Low back pain with sciatica, 175, cm, 05/02/22 10:56:00 EST, Height, 78.4 Start Date: 05/02/22 Status: Ordered 1 ml galcanezumab-gnlm 120 mg/ml auto-injector (5 sources) Start: 01-15-2023 Galcanezumab-Gnlm (Emgality Pen) 120 mg/mL pen injector Active 120 mg SC EVERY MONTH March 16, 2023 1:00am montelukast 10 mg oral tablet (11 sources) Leukotriene Receptor Antagonist Start: 09-16-2022 End: 07-14-2023 take 1 tablet by mouth once daily Montelukast 10 mg tablet Active 10 mg PO DAILY October 03, 2022 12:00am Start: 12-30-2021 End: 06-28-2022 montelukast 10 mg oral table t Dose : 10 mg = 1 tab(s), Oral, qDay, # 90 tab(s), 1 Refill(s), [facility]: [id number], 175, cm, 12/30/21 13:32:00 EDT, Height Start Date: 12/30/21 Stop Date: 06/28/22 Status: Ordered 1 ml omalizumab 150 mg/ml prefilled syringe (3 sources) Anti-IgE Start: 11-20-2022 Omalizumab (Xo lair) 150 mg/mL syringe Active 150 mg SC every 4 weeks November 20, 2022 12:00am OXcarbazepine 600 mg oral tablet (12 sources) Anti-epileptic Agent Start: 10-03-2022 take 1 tablet by mouth twice daily Oxcarbazepine 600 mg tablet Active 600 mg PO TWICE A DAY October 03, 2022 12:00am Start: 06-19-2022 OXcarbazepine 300 mg oral tablet Dose : 600 mg = 2 tab(s), Oral, BID, 0 Refill(s) Start Date: 06/19/22 Status: Ordered Start: 06-18-2021 OXcarbazepine See Instructions, Oral, 0 Refill(s) Start Date: 06/18/21 Status: Ordered seizure med (4 sources) Start: 01-03-2019 seizure med seizure med Start Date: 01/03/19 Status: Ordered sildenafil 50 mg oral tablet (4 sources) Phosphodiesterase 5 Inhibitor Start: 03-02-2023 End: 04-01-2023 take 1 tablet by mouth every twenty-four hours as needed Sildenafil 50 mg tablet Active 50 mg PO Q24H as needed for sexual activity March 16, 2023 1:00am SUMAtriptan 100 mg oral tablet (3 sources) Serotonin-1b and Serotonin-1d Receptor Agonist Start: 03-16-2023 take 1 tablet by mouth every two hours as needed for headache Sumatriptan Succinate 100 mg tablet Active 100 mg PO Q2H as needed for migraine headache March 16, 2023 1:00am Symbicort 160 mcg-4.5 mcg/inh Inhaler (6 sources) Start: 01-15-2023 End: 07-14-2023 take 1 dose by inhalation twice daily Symbicort 160 mcg-4.5 mcg/inh Inhaler Dose = 2 puff(s), Inhalation, BID, # 3 EA, 1 Refill(s), [facility]: [id number], 175.3, cm, 01/15/23 14:25:00 EDT, Height, kg, 01/15/23 14:25:00 EDT, Dosing Weight Start Date: 01/15/23 Stop Date: 07/14/23 Status: Ordered Start: 09-16-2022 End: 03-15-2023 take 1 dose by inhalation twice daily Symbicort 160 mcg-4.5 mcg/inh Inhaler Dose = 2 puff(s), Inhalation, BID, # 3 EA, 1 Refill(s), [facility]: [id number], 175.3, cm, 09/16/22 10:43:00 EDT, Height, kg, 09/16/22 10:43:00 EDT, Dosing Weight Start Date: 09/16/22 Stop Date: 03/15/23 Status: Ordered Start: 03-12-2022 End: 09-08-2022 take 1 dose by inhalation twice daily Symbicort 160 mcg-4.5 mcg/inh Inhaler Dose = 2 puff(s), Inhalation, BID, # 3 EA, 1 Refill(s), [facility]: [id number], 175, cm, 12/30/21 13:32:00 EDT, Height, kg, 02/26/22 16:33:00 EST, Dosing Weight Start Date: 03/12/22 Stop Date: 09/08/22 Status: Ordered 60 actuat tiotropium 0.42081 mg/actuat inhalation spray (10 sources) Anticholinergic Start: 01-15-2023 End: 07-14-2023 take 1 dose by inhalation once daily Spiriva Respimat 1.25 mcg/inh inhalation aerosol Dose : 2.5 mcg = 2 puff(s), Inhalation, qDay, # 3 EA, 1 Refill(s), [facility]: [id number], 175.3, cm, 01/15/23 14:25:00 EDT, Height, kg, 01/15/23 14:25:00 EDT, Dosing Weight Start Date: 01/15/23 Stop Date: 07/14/23 Status: Ordered Start: 10-14-2022 End: 03-16-2023 take 1.25 ug by inhalation every twenty-four hours Tiotropium Yolyn (Spiriva Respimat) 1.25 mcg/actuation mist Active 2 NMA INHALATION Q24H 4 March 16, 2023 9:16am Start: 10-14-2022 End: 03-16-2023 take 1 puff(s) by inhalation every twenty-four hours Tiotropium Yolyn (Spiriva Respimat) 1.25 mcg/actuation mist Active 2 PUFF INHALATION Q24H 4 March 16, 2023 8:16am divalproex sodium 500 mg delayed release oral tablet (12 sources) Mood Stabilizer, Anti-epileptic Agent Start: 06-18-2021 take 1 tablet by mouth twice daily Divalproex (Depakote) 500 mg tablet,delayed release (DR/EC) Active 500 mg PO TWICE A DAY October 03, 2022 12:00am Completed/Discontinued Medications Medication Drug Class(es) Dates Sig (Normalized) Sig (Original) [id number] 200 actuat albuterol 0.09 mg/actuat metered dose inhaler (20 sources) beta2-Adrenergic Agonist Start: 04-10-2023 End: 05-10-2023 take 1 puff(s) by inhalation four times daily Ventolin HFA MDI (90 mcg/inh) inhalation aerosol 1 puff(s), Inhalation, QID, # 1 EA, 0 Refill(s) Start Date: 04/10/23 Stop Date: 05/10/23 Status: Ordered Start: 10-03-2022 End: 10-12-2023 Albuterol Sulfate 90 mcg/act uation HFA aerosol inhaler Discontinued 2 NMA INHALATION Q4H as needed for shortness of breath or wheezing 8.5 September 04, 2023 2:42pm October 12, 2023 10:53am Start: 09-16-2022 End: 04-15-2023 take 1 puff(s) by inhalation every four hours Albuterol Sulfate Discontinued 2 PUFF INHALATION Q4H October 02, 2022 11:00pm March 16, 2023 8:29am Start: 12-30-2021 End: 06-28-2022 take 1 dose by inhalation four times daily albuterol 2.5 mg/3 mL (0.083%) inhalation solution Dose : 2.5 mg = 3 mL, Inhalation, QID, # 1,080 mL, 1 Refill(s), [facility]: [id number], 175, cm, 12/30/21 13:32:00 EDT, Height, kg, 12/30/21 13:32:00 EDT, Dosing Weight Start Date: 12/30/21 Stop Date: 06/28/22 Status: Ordered Start: 12-30-2021 End: 06-28-2022 take 1 puff(s) by inhalation every four hours as needed for wheezing ProAir HFA MDI (90 mcg/inh) inhalation aerosol 1 puff(s), Inhalation, q4h, PRN as needed for wheezing, lack of efficacy with ventolin, dispense proair; use with spacer chamber, # 3 EA, 1 Refill(s), [facility]: [id number], 175, cm, 12/30/21 13:32:00 EDT, Height Start Date: 12/30/21 Stop Date: 06/28/22 Status: Ordered Start: 06-24-2021 take 1 dose by inhal ation every six hours albuterol 2.5 mg/3 mL (0.083%) inhalation solution Dose : 2.5 mg = 3 mL, Inhalation, q6h, # 60 EA, 0 Refill(s), Asthma attack Start Date: 06/24/21 Status: Ordered Start: 06-02-2016 albuterol 2.5 mg/3 mL (0.083%) inhalation solution 0 Refill(s) Start Date: 06/02/16 Status: Ordered Start: 06-02-2016 Ventolin MDI H FA 0 Refill(s) Start Date: 06/02/16 Status: Ordered azithromycin 250 mg oral tablet (1 source) Macrolide Antimicrobial Start: 06-10-2024 End: 06-15-2024 take 2-5 tablets by mouth once daily Azithromycin 250 mg tablet Discontinued 0 PO .COMPLEX 6 5 June 10, 2024 1:00am June 14, 2024 12:00am June 15, 2024 12:11am take 500 mg today (day 1), then 250 mg for 4 days (days 2-5) PO 1 ml erenumab-aooe 70 mg/ml auto-injector (11 sources) Start: 10-03-2022 End: 03-16-2023 Erenumab-Aooe Discontinued 70 MG SC EVERY MONTH October 02, 2022 11:00pm March 16, 2023 8:03am Start: 06-18-2021 End: 03-16-2023 Erenumab-Aooe 70 mg/mL auto- injector Discontinued 70 mg SC EVERY MONTH October 03, 2022 12:00am March 16, 2023 9:03am meloxicam 15 mg oral tablet (8 sources) Nonsteroidal Anti-inflammatory Drug Start: 09-16-2022 End: 07-14-2023 take 1 tablet by mouth once daily Meloxicam 15 mg tablet Discontinued 15 mg PO DAILY October 03, 2022 12:00am March 16, 2023 9:04am ondansetron 4 mg oral tablet (4 sources) Serotonin-3 Receptor Antagonist Start: 03-16-2023 End: 12-11-2023 take 1 tablet by mouth every eight hours as needed for nausea and vomiting Ondansetron Hcl 4 mg tablet Discontinued 4 mg PO Q8H as needed for nausea and vomiting March 16, 2023 1:00am December 11, 2023 8:20am Start: 02-22-2023 End: 02-25-2023 Zofran 4 mg oral tablet Dose : 4 mg = 1 tab(s), Oral, q6h, PRN As needed for nausea and vomiting, X 3 day(s), # 12 tab(s), 0 Refill(s), 02/25/23 6:52:00 PM EST Start Date: 02/22/23 Stop Date: 02/25/23 Status: Ordered predniSONE 20 mg oral tablet (16 sources) Start: 12-11-2023 End: 03-04-2024 take 3 tablets by mouth once daily at mealtime Prednisone 20 mg tablet Discontinued 60 mg PO daily December 11, 2023 12:00am March 04, 2024 9:56am On Hold: Ordered administer with food or milk Start: 04-10-2023 End: 04-24-2023 prednisone 10mg tab (TAPER) 60-21-52-20-09-16-5mg x 2days/dose, Oral, qDay, 7W2kfau,0T8hduo,5Z7hlmf,1L3jopp,8W3qfyn,9F3hubc, 0.5X2 days., # 43 tab(s), 0 Refill(s), [facility]: [id number], 175.3, cm, 01/15/23 14:25:00 EDT, Height, kg, 03/25/23 10:02:00 EST, Dosing Weight Start Date: 04/10/23 Stop Date: 04/24/23 Status: Ordered Start: 03-16-2023 End: 05-01-2023 take 4 tablets by mouth once daily Prednisone 10 mg tablet Discontinued 10 mg PO DAILY March 23, 2023 3:03pm May 01, 2023 10:24am Take 4 tabs daily for 5 days Start: 01-15-2023 End: 01-29-2023 prednisone 10mg tab (TAPER) 30-16-02-00-16-36-5mg x 2days/dose, Oral, qDay, 1N0tyta,4I6xqho,5T2bqcd,9M9xqeu,2T0grqz,4F2dped, 0.5X2 days., # 43 tab(s), 0 Refill(s), [facility]: [id number], 175.3, cm, 01/15/23 14:25:00 EDT, Height, kg, 01/15/23 14:25:00 EDT, Dosing Weight Start Date: 01/15/23 Stop Date: 01/29/23 Status: Ordered Start: 11-20-2022 End: 01-02-2023 Prednisone 10 mg tablet Disc ontinued 10 mg PO daily November 20, 2022 12:00am January 02, 2023 8:59am take 4 tabs for three days, then 3 tabs for three days, then 2 tabs for three days, then 1 tab for 3 days Start: 09-16-2022 End: 09-30-2022 prednisone 10mg tab (TAPER) 62-16-32-23-79-32-5mg x 2days/dose, Oral, qDay, 6J6zmcf,9R6yjad,9J7cdpo,2S2elqs,7B1qxun,2O5zpsi, 0.5X2 days., # 43 tab(s), 0 Refill(s), [facility]: [id number], 175.3, cm, 09/16/22 10:43:00 EDT, Height Start Date: 09/16/22 Stop Date: 09/30/22 Status: Ordered Start: 04-17-2022 End: 04-22-2022 predniSONE 20 mg oral tablet Dose : 20 mg = 1 tab(s), Oral, BID, X 5 day(s), # 10 tab(s), 0 Refill(s), 04/22/22 14:06:00 EST, RSV - Respiratory syncytial virus infection Chronic low back pain Start Date: 04/17/22 Stop Date: 04/22/22 Status: Ordered Start: 02-26-2022 End: 03-12-2022 prednisone 10mg tab (TAPER) 30-11-54-70-69-84-5mg x 2days/dose, Oral, qDay, [id number],5G4nkwe,5C5bagv,5H0dcbf,5E3qxpm,1J8pslb, X2 days., # 43 tab(s), 0 Refill(s) Start Date: 02/26/22 Stop Date: 03/12/22 Status: Ordered Problems Active Problems Problem Classification Problem Date Documented Da te Episodic/Chronic Allergic reactions (6 sources) 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-2021 Episodic Asthma (20 sources) Exacerbation of asthma; Translations: [Unspecified asthma with (acute) exacerbation] Onset: 06-24-2021 Chronic Disorders of lipid metabolism (11 sources) Hyperlipidemia; Translations: [Hyperlipidemia, unspecified] 09-06-2021 Chronic Epilepsy; convulsions (5 sources) Seizure disorder; Translations: [Epilepsy, unspecified, not intractable, without status epilepticus] 10-03-2022 Chronic Epilepsy; convulsions (7 sources) Seizure disorder 06-18-2021 Episodic Genitourinary symptoms and ill-defined conditions (13 sources) Nocturia; Translations: [Polyuria] 06-18-2021 Episodic Headache; including migraine (12 sources) Migraine; Translations: [Migraine, unspecified, not intractable, without status migrainosus] 06-18-2021 Chronic Mood disorders (14 sources) Bipolar disorder; Translations: [Bipolar I disorder] 05-27-2016 Chronic Mycoses (2 sources) Candidiasis of mouth; Translations: [Candidal stomatitis] 12-11-2023 Episodic Other bone disease and musculoskeletal deformities (8 sources) Somatic dysfunction of lumbar region; Translations: [Segmental and somatic dysfunction of lumbar region] 10-03-2022 Episodic Other bone disease and musculoskeletal deformities (5 sources) Somatic dysfunction of pelvic region; Translations: [Segmental and somatic dysfunction of pelvic region] 10-03-2022 Episodic Other congenital anomalies (5 sources) Lumbarized first sacral vertebra; 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, not associated with scoliosis] 10-03-2022 Chronic Other lower respiratory disease (1 source) Hypoxia 04-10-2023 Episodic Other nutritional; endocrine; and metabolic disorders (9 sources) Excessive thirst; Translations: [Polydipsia] 06-18-2021 Episodic Other upper respiratory disease (12 sources) Seasonal allergy; Translations: [Other seasonal allergic rhinitis] 06-18-2021 Chronic Other upper respiratory disease (9 sources) Bleeding from nose; Translations: [Epistaxis] 06-18-2021 Episodic Residual codes; unclassified (5 sources) Chews tobacco ; Translations: [Tobacco use] 10-03-2022 Episodic Screening and history of mental health and substance abuse codes (4 sources) Ex-smoker 06-18-2021 Episodic Comment on above: quit 12/2021 Spondylosis; intervertebral disc disorders; other back problems (8 sources) Degeneration of intervertebral disc; Translations: [Degeneration of intervertebral disc] 10-03-2022 Chronic Spondylosis; intervertebral disc disorders; other back problems (6 sources) Lumbago with sciatica; Translations: [Lumbago with sciatica, unspecified side] 05-02-2022 Episodic Substance-related disorders (12 sources) Marijuana user; Translations: [Other nursing home (current) drug therapy] 06-18-2021 Episodic Unclassified (1 source) Unknown / UNK(Unknown) Onset: 10-08-2016 Unclassified (11 sources) Patient encounter status 06-18-2021 Viral infection (1 source) Disease caused by 2019-nCoV 04-10-2023 Past or Other Problems Problem Classification Problem Date Documented Da te Episodic/Chronic Unclassified (1 source) RASH,BUG BITES Onset: 10-08-2016 Results Test Name Value Interpretation Reference Range Facility Pulmonary Visit Reporton Pulmonary Visit Report [facility] [place] [address] [place] [address] OFFICE VISIT Date of Service: 06/10/24 MR#: [id number] Acct: [id number] Name: DAHLIA CHOE Rep #: [id number] : 1990 Provider: MARVIN Saunders Age/Sex: 34/M Location: [facility] [place] Status: Signed Assessment and Plan Assessment and Plan (1) Allergic asthma: Status: Chronic Qualifiers: Asthma severity: severe Asthma persistence: persistent Asthma complication type: with acute exacerbation Qualified Code(s): J45.51 - Severe persistent asthma with (acute) exacerbation Plan: Deteriorated. He appears to be in an exacerbation of asthma today. NIOX procedure performed in the office today returned within normal limits, this indicates that the patient does not require additional corticosteroids. Therefore, I am treating him with a Z-Blake. Continue all maintenance medications, including Symbicort, Spiriva, Singulair and Xolair. Return to the office in 6 months. He has been encouraged to contact the office with any new or worsening symptoms in the meantime. (2) Oral thrush: Status: Acute Plan: Treating with fluconazole. He was given specific instructions to complete the azithromycin, weight 24 hours before using the fluconazole. He conveys understanding. (3) Bipolar 1 disorder: Status: Chronic Plan: Complicates exam, plan, care and prognosis. It is unclear if his bipolar 1 disorder impacts his ability to follow instructions. We will monitor him closely, seeing him at least every 6 months as long as he shows up for scheduled appointments. He has historically missed some appointments. Orders: Orders NIOX Today J45.51 - Severe persistent asthma with (acute) exacerbation Medications: New fluconazole 100 mg PO QDAY 7 tabs 0RF azithromycin take 500 mg today (day 1), then 250 mg for 4 days (days 2-5) PO 5 days 6 tabs 0RF Plan Details Follow Up: 6 Months HPI HPI Comments Details: This patient presents to the office today for follow-up of his asthma. He is ambulatory and currently on room air. He has not recently been seen in the ED or urgent care for any respiratory illness. He has not required any antibiotics or prednisone for any breathing problems. Recently his dad came down upper respiratory illness and the patient thinks he might be getting it. He is compliant with Symbicort 2 puffs twice daily. He does report rinsing his mouth out after each use. He does not believe he has had any side effects such as sore throat or thrush. He is also compliant with Singulair and Spiriva daily. He has recently been using DuoNebs. He utilizes Airsupra 3 times daily. He has returned to compliance with Xolair monthly injections. He continues to smoke cigarettes. He is currently smoking cigarettes per day. He does have shortness of breath that is worse with exertion. He reports a cough that is productive of pale green-colored sputum. He has wheezing and chest tightness. He has a dry cough. He denies any chest pain or palpitations. He has not had any fever, chills or body aches. Intake Vital Signs 12/11/23 07:37 06/10/24 08:01 Height 5 ft 8 in 5 ft 9 in Weight: 166 lb BMI 24.5 BP 122/76 H Blood Pressure Location Lt brachial Position Sitting Respiration 20 H Pulse 71 Pulse Source Monitor Temp 97.5 F L Temperature Source Temporal Artery Pulse Oximetry (%) 94 Oxygen Delivery Method room air Intake Visit Reasons: 6 M FU Dope Maintenance Worker Required: No Accompanied by: Self Is patient in pain?: No Allergies No Known Allergies Allergy (Verified 06/10/24 08:10) Medications ???Medication ???Instructions ???Recorded ???Confirmed ???Type cyclobenzaprine 10 mg tablet 10 mg PO TID PRN muscle spasm 09/0606/10/24 History divalproex 500 mg tablet,delayed 500 mg PO BID 10/03/22 06/10/24 Hi story release (Depakote) gabapentin 300 mg capsule 300 mg PO TID 10/03/22 06/10/24 Hi story montelukast 10 mg tablet 10 mg PO DAILY 10/03/22 06/10/24 H istory oxcarbazepine 600 mg tablet 600 mg PO BID 10/03/22 06/10/24 Hi story omalizumab 150 mg/mL subcutaneous 150 mg subcut Q4W #1 mL 11/20/22 06/10/24 Rx syringe (Xolair) ipratropium 0.5 mg-albuterol 3 mg 3 ml inhalation Q4H PRN shortness 12/25/22 06/10/24 Rx (2.5 mg base)/3 mL nebulization of breath or wheezing #180 mL soln budesonide-formote rol HFA 160 2 puff inhalation BID #10.2 grams 03/16/23 06/10/24 Rx mcg-4.5 mcg/actuation aerosol inhaler (Symbicort) galcanezumab-gnlm 120 mg/mL 120 mg subcut QMONTH 03/16/2310/28 History subcutaneous pen injector (Emgality Pen) sildenafil 50 mg tablet 50 mg PO Q24H PRN sexual activity 03/16/23 06/10/24 History sumatriptan succinate 100 mg tablet 100 mg PO Q2H PRN migraine head (more content not included)... Normal [facility] Pulmonary Visit Reporton Pulmonary Visit Report [facility] Pul[facility] Medicine of [address] [place] [address] OFFICE VISIT Date of Service: 12/11/23 MR#: [id number] Acct: [id number] Name: DAHLIA CHOE Rep #: [id number] : 1990 Provider: MARVIN Saunders Age/Sex: 33/M Location: [facility] [place] Status: Signed Assessment and Plan Assessment and Plan (1) Allergic asthma: Status: Chronic Qualifiers: Asthma severity: severe Asthma persistence: persistent Asthma complication type: with acute exacerbation Qualified Code(s): J45.51 - Severe persistent asthma with (acute) exacerbation Plan: Deteriorated. The patient has been noncompliant with Xolair injections. He states that he thought that the infusion center was supposed to call him to schedule them. He is in exacerbation today and does require a prednisone burst. Unfortunately, he also has thrush. He will be treated for both the asthma exacerbation (prednisone burst) and the thrush (fluconazole). He was given the phone number for the infusion center to try to reschedule his Xolair injections. He was advised that he may require a new authorization. I explained to him that it is the expectation that the patient is responsible for scheduling his own injections. We will assist him in getting approved for Xolair again, however if the patient remains noncompliant with scheduling his infusions we will treat him with traditional maintenance medications alone. He conveys understanding. Follow-up in 6 months. Contact the office with any new or worsening symptoms in the meantime. (2) Oral thrush: Status: Acute Plan: Treating with fluconazole. Medications: New prednisone administer with food or milk 60 mg (3 x 20 mg) PO QDAY 15 tabs 0RF fluconazole 100 mg PO QDAY 7 tabs 0RF Plan Details Follow Up: 6 Months ([facility]) HPI 9 M FU Chief Complaint: Asthma HPI Comments Details: This patient presents to the office today for follow-up of his asthma. He is ambulatory and currently on room air. He has not recently been seen in the ED or urgent care for any respiratory illness. He has not required any antibiotics or prednisone for any breathing problems. He is compliant with Symbicort 2 puffs twice daily. He does report rinsing his mouth out after each use. Unfortunately, he does believe he has white patches in his mouth. He is also compliant with Singulair and Spiriva daily. He has recently been using DuoNebs. Unfortunately, he has not recently been compliant with Xolair. He states that he had to cancel his appointment due to a foot injury back in May. He did not reschedule that injection. He also no showed he is June and July injections. Last injection occurred May 01, 2023. He is using his rescue inhaler more frequently, currently on Airsupra. He continues to smoke cigarettes. He is currently smoking 1/4 pack/day. He does have shortness of breath on exertion. He has wheezing and chest tightness. He has a dry cough. He denies any chest pain or palpitations. He has not had any fever, chills or body aches. Intake Vital Signs 05/01/23 09:26 12/11/23 07:37 Height 5 ft 8 in 5 ft 8 in Weight: 150 lb BMI 22.8 BP 117/69 Blood Pressure Location Lt brachial Position Sitting Respiration 18 Pulse 66 Pulse Source Monitor Temp 97.2 F L Temperature Source Temporal Artery Pulse Oximetry (%) 96 Oxygen Delivery Method room air Intake Visit Reasons: 9 M FU Dope Maintenance Worker Required: No DME Vendor: n/a Accompanied by: Self Is patient in pain?: No Allergies No Known Allergies Allergy (Verified 12/11/23 08:20) Medications ???Medication ???Instructions ???Recorded ???Confirmed ???Type cyclobenzaprine 10 mg tablet 10 mg PO TID PRN muscle spasm 10/03/22 12/11/23 History divalproex 500 mg tablet,delayed 500 mg PO BID 10/03/22 12/11/23 History release (Depakote) gabapentin 300 mg capsule 300 mg PO TID 10/03/22 12/11/23 History montelukast 10 mg tablet 10 mg PO DAILY 10/03/22 12/11/23 History oxcarbazepine 600 mg tablet 600 mg PO BID 10/03/22 12/11/23 History omalizumab 150 mg/mL subcutaneous 150 mg subcut Q4W #1 mL 11/20/22 12/11/23 Rx syringe (Xolair) ipratropium 0.5 mg-albuterol 3 mg 3 ml inhalation Q4H PRN shortness 12/25/22 12/11/23 Rx (2.5 mg base)/3 mL nebulization of breath or wheezing #180 mL soln budesonide-formote rol HFA 160 2 puff inhalation BID #10.2 grams 03/16/23 12/11/23 Rx mcg-4.5 mcg/actuation aerosol inhaler (Symbicort) galcanezumab-gnlm 120 mg/mL 120 mg subcut QMONTH 03/16/23 12/11/23 History subcutaneous pen injector (Emgality Pen) sildenafil 50 mg tablet 50 mg PO Q24H PRN sexual activity 03/16/23 12/11/23 History sumatriptan succinate 100 mg tablet 100 mg PO Q2H PRN migraine headache 03/16/23 12/11/23 History ti (more content not included)... Normal [facility] XR FOOT MINIMUM 3 VIEWS LEFT on 08-12-2023 XR FOOT MINIMUM 3 VIEWS LEFT ORIGINAL EXAMINATION: THREE XRAY VIEWS OF THE LEFT FOOT08/10/2023 1:55 pm FOOT 3 VIEWS LEFT COMPARISON: 07/27/2023 HISTORY: ORDERING SYSTEM PROVIDED HISTORY: Reason for Exam: FRACTURE OF LEFT CALCANEUS FINDINGS: There is stable sclerosis in the body of the calcaneus. Alignment is stable. There is no new bony abnormality. The soft tissues are unremarkable. IMPRESSION: Stable sclerosis in the calcaneus compatible with healing fracture. Interpreted by: Sunny Beltran Preliminary Report By: Sunny Beltran Electronically signed By Sunny Beltran Dictated Date: 08/12/2023 10:50:33 AM Prelim Date: 08/12/2023 10:51:55 AM Sign Date: 08/12/2023 10:51:55 AM Ordering Provider: ARMANI MAY [facility] ([place]) XR FOOT MINIMUM 3 VIEWS LEFT on 07-28-2023 XR FOOT MINIMUM 3 VIEWS LEFT ORIGINAL EXAMINATION: THREE XRAY VIEWS OF THE LEFT FOOT 07/27/2023 3:25 pm COMPARISON: Left calcaneus radiographs, 11/12/2023 HISTORY: ORDERING SYSTEM PROVIDED HISTORY: Reason for Exam: CLOSED FRACTURE OF CALCANEOUS BONE OF LEFT FOOT FINDINGS: Overlying casting material obscures the fine bony details. There is no evidence of acute fracture in the left foot. There is sclerosis involving the calcaneus which could be related to a healing fracture. There is normal alignment of the tarsometatarsal joints. No acute joint abnormality. No focal osseous lesion. No focal soft tissue abnormality. IMPRESSION: Sclerosis of the left calcaneus is likely related to a healing fracture. No acute osseous abnormality of the left foot. Interpreted by: Heriberto Arndt MD Preliminary Report By: Heriberto Arndt MD Electronically signed By Heriberto Arndt MD Dictated Date: 07/28/2023 11:05:47 AM Prelim Date: 07/28/2023 11:06:32 AM Sign Date: 07/28/2023 11:06:32 AM Ordering Provider: ARMANI MAY [facility] ([place]) XR FOOT MINIMUM 3 VIEWS LEFT ORIGINAL EXAMINATION: THREE XRAY VIEWS OF THE LEFT FOOT 07/27/2023 4:29 pm COMPARISON: Left calcaneal radiographs, 07/13/2023. HISTORY: ORDERING SYSTEM PROVIDED HISTORY: Reason for Exam: UNSPECIFIED FRACTURE OF LEFT CALCANEOUS, INITIAL ENCOUNTER FOR CLOSED FRACTURE FINDINGS: There is no evidence of acute fracture in the left foot. There is sclerosis involving the body of the calcaneus on the lateral view which could be related to a healing fracture. There is normal alignment of the tarsometatarsal joints. No acute joint abnormality. No focal osseous lesion. No focal soft tissue abnormality. IMPRESSION: Subtle sclerosis involving the body of the calcaneus could indicate a healing fracture. No other evidence of an acute process involving the left foot. Interpreted by: Heriberto Arndt MD Preliminary Report By: Heriberto Arndt MD Electronically signed By Heriberto Arndt MD Dictated Date: 07/28/2023 10:28:55 AM Prelim Date: 07/28/2023 10:30:15 AM Sign Date: 07/28/2023 10:30:15 AM Ordering Provider: ARMANI MAY [facility]) XR CALCANEOUS MINIMUM 2 VIEW S [facility] 07-13-2023 XR CALCANEOUS MINIMUM 2 VIEWS LEFT ORIGINAL EXAMINATION: TWO XRAY VIEWS OF THE LEFT HEEL/CALCANEUS 07/13/2023 2:12 pm COMPARISON: 06/29/2023 HISTORY: ORDERING SYSTEM PROVIDED HISTORY: Reason for Exam: UNSPECIFIED FRACTURE OF LEFT CALCANEOUS, INITIAL ENCOUNTER FOR CLOSED FRACTURE FINDINGS: A comminuted fracture of the calcaneus is again demonstrated. There has been mild progressive healing. Alignment is stable. Overlying cast material is in place which obscures fine bony detail. IMPRESSION: Progressive but incomplete healing of the calcaneus fracture. Interpreted by: Sunny Beltran Preliminary Report By: Sunny Beltran Electronically signed By Sunny Beltran Dictated Date: 07/13/2023 3:15:04 PM Prelim Date: 07/13/2023 3:16:46 PM Sign Date: 07/13/2023 3:16:46 PM Ordering Provider: ARMANI MAY [facility] ([place]) XR CALCANEOUS MINIMUM 2 VIEW S [facility] 06-30-2023 XR CALCANEOUS MINIMUM 2 VIEWS LEFT ORIGINAL EXAMINATION: TWO XRAY VIEWS OF THE LEFT HEEL/CALCANEUS 06/29/2023 2:18 pm COMPARISON: Left calcaneus radiographs, 06/22/2023. HISTORY: ORDERING SYSTEM PROVIDED HISTORY: Reason for Exam: UNSPECIFIED FRACTURE OF LEFT CALCANEUS, INITIAL ENCOUNTER FOR CLOSED FRACTURE FINDINGS: There is a comminuted fracture involving the body of the left calcaneus. The fracture margins are indistinct compatible with early healing but no osseous union has occurred at this time. The alignment is stable from the previous exam. No new fracture is identified. No radiopaque foreign bodies. Overlying casting material obscures the fine bony details. No significant interval change is appreciated. IMPRESSION: Stable alignment of known left calcaneal fracture as above. Interpreted by: Heriberto Arndt MD Preliminary Report By: Heriberto Arndt MD Electronically signed By Heriberto Arndt MD Dictated Date: 06/30/2023 7:39:16 AM Prelim Date: 06/30/2023 7:40:40 AM Sign Date: 06/30/2023 7:40:40 AM Ordering Provider: ARMANI MAY [facility] ([place]) XR CALCANEOUS MINIMUM 2 VIEW S LEFTon 06-22-2023 XR CALCANEOUS MINIMUM 2 VIEWS LEFT ORIGINAL EXAMINATION: TWO XRAY VIEWS OF THE LEFT HEEL/CALCANEUS 06/22/2023 3:48 pm COMPARISON: Ankle radiographs 06/12/2023. HISTORY: ORDERING SYSTEM PROVIDED HISTORY: Reason for Exam: UNSP FX OF LEFT CALCANEUS FINDINGS: Patient is status post casting secondary to a comminuted calcaneal fracture. There is no significant change in alignment. Likely intra-articular extension to the subtalar articulations. No dislocation is seen. No destructive osseous lesion. No tibiotalar effusion. IMPRESSION: 1. No significant change in calcaneal fracture alignment status post casting. Interpreted by: Critsian Rivero DO Preliminary Report By: Cristian Rivero DO Electronically signed By Cristian Rivero DO Dictated Date: 06/22/2023 3:55:45 PM Prelim Date: 06/22/2023 3:56:49 PM Sign Date: 06/22/2023 3:56:49 PM Ordering Provider: KELLIE VALDEZ [facility] ([place] XR ANKLE AND FOOT 6 VIEWS LE FTon 06-12-2023 XR ANKLE AND FOOT 6 VIEWS LEFT ORIGINAL EXAMINATION: 3XRAY VIEWS OF THE ANKLE AND FOOT LEFT06/12/2023 7:53 pm XR ANKLE FOOT 3 OR MORE VIEWS LEFT EXAM DESCRIPTION: COMPARISON: None available HISTORY: ORDERING SYSTEM PROVIDED HISTORY: Reason for Exam: pain FINDINGS: Comminuted fracture of the calcaneus without significant displacement.. No sclerotic or lytic lesions are identified and the mineralization pattern is normal. The ankle mortise is intact and the talar dome is unremarkable. Lateral soft tissue edema is present.. IMPRESSION: Comminuted fracture of the calcaneus without significant displacement Interpreted by: Gamaliel Smith MD Preliminary Report By: Gamaliel Smith MD Electronically signed By Gamaliel Smith MD Dictated Date: 06/12/2023 8:04:01 PM Prelim Date: 06/12/2023 8:04:50 PM Sign Date: 06/12/2023 8:04:50 PM Ordering Provider: BEBO PICHARDO [facility]) XR SPINE LUMBAR AP/LATon XR SPINE LUMBAR AP/LAT ORIGINAL EXAMINATION: 2 XRAY VIEWS OF THE LUMBAR SPINE 06/12/2023 7:55 pm COMPARISON: X-ray lumbar spine 05/02/2022 HISTORY: ORDERING SYSTEM PROVIDED HISTORY: Reason for Exam: pain FINDINGS: There are 5 lumbar type vertebral bodies the vertebral body heights and alignment are maintained. Mild degenerative disc disease at L5-S1. No acute compression deformity or other fracture. The SI joints are symmetric. IMPRESSION: No acute osseous abnormality. Preliminary Report was Dictated by a Resident I have personally reviewed all of the images of this examination and agree with the resident findings and interpretation. Interpreted by: Gamaliel Smith MD Preliminary Report By: Lizbet Duran Electronically signed By Gamaliel Smith MD Dictated Date: 06/12/2023 8:06:54 PM Prelim Date: 06/12/2023 8:08:25 PM Sign Date: 06/12/2023 9:50:53 PM Ordering Provider: BBEO [facility]) STREP (POC)on 05-01-2023 Group A Streptococcus Antigen (POC) Negative Normal Negative [facility] ([place]) Comment on above: Result Comment: Grou p A streptococcus antigen screen results are not quantitative. Positive results have been reported in asymptomatic carriers of Group A Strep. Test results must be evaluated in conjunction with other clinical data. Performing Instrument - POCT [id number] Normal [facility] ([place]) Perf Loc - POCT Tested at AM Normal [facility] ([place]) Comment on above: Result Comment: [facility] [address] [place], [place] [address] .GFRon 02-22-2023 GFR >60 Normal [facility] ([place]) Comment on above: Result Comment: GFR Population mean for , Non- Americans Ages 20-29 = 116 mL/min/1.73 sq.m. Ages 30-39 = 107 mL/min/1.73 sq.m. Ages 40-49 = 99 mL/min/1.73 sq.m. Ages 50-59 = 93 mL/min/1.73 sq.m. Ages 60-69 = 85 mL/min/1.73 sq.m. Ages 70+ = 75 mL/min/1.73 sq.m. Chronic Kidney Disease: Less than 60 mL/min/1.73 square meters End Stage Renal Disease: Less than 15 mL/min/1.73 square meters Performed By: #### D IFF, CBC, MDW, TROPHS, LIP, CMP, GFR, MORPH #### [address] [address] GFR Non- >60 Normal [facility] ([place]) Comment on above: Result Comment: GFR Population mean for , Non- Americans Ages 20-29 = 116 mL/min/1.73 sq.m. Ages 30-39 = 107 mL/min/1.73 sq.m. Ages 40-49 = 99 mL/min/1.73 sq.m. Ages 50-59 = 93 mL/min/1.73 sq.m. Ages 60-69 = 85 mL/min/1.73 sq.m. Ages 70+ = 75 mL/min/1.73 sq.m. Chronic Kidney Disease: Less than 60 mL/min/1.73 square meters End Stage Renal Disease: Less than 15 mL/min/1.73 square meters Performed By: #### D IFF, CBC, MDW, TROPHS, LIP, CMP, GFR, MORPH #### [address] [address] .MDWon 02-22-2023 Monocyte Distribution Width 23.75 High 0.00-20.00 [facility] ([place]) Comment on above: Result Comment: For adults in ED, MDW>20.0 may be associated with a higher risk of sepsis during the first 12hrs of hospital admission Performed By: #### D IFF, CBC, MDW, TROPHS, LIP, CMP, GFR, MORPH #### [address] [address] .Manual Diffon 02-22-2023 Basophil %, Manual 2.0 % Normal 0.0-2.5 Counts include 234 beds at the [facility] ([place]) Comment on above: Performed By: #### D IFF, CBC, MDW, TROPHS, LIP, CMP, GFR, MORPH #### [place] [address] Basophil, Abs Manual 0.1 10 3/mcL Normal 0.0-0.3 [facility] ([place]) Comment on above: Performed By: #### D IFF, CBC, MDW, TROPHS, LIP, CMP, GFR, MORPH #### [place] [address] Eosinophil %, Manual 2.0 % Normal 0.0-6.0 [facility] ([place]) Comment on above: Performed By: #### D IFF, CBC, MDW, TROPHS, LIP, CMP, GFR, MORPH #### [address] [address] Eosinophil, Abs Manual 0.1 10 3/mcL Normal 0.0-0.7 [facility] ([place] Comment on above: Performed By: #### D IFF, CBC, MDW, TROPHS, LIP, CMP, GFR, MORPH #### [address] [address] Lymphocyte %, Manual 37.0 % Normal 20.0-40.0 [facility] ([place]) Comment on above: Performed By: #### D IFF, CBC, MDW, TROPHS, LIP, CMP, GFR, MORPH #### [address] [address] Lymphocyte, Abs Manual 1.4 10 3/mcL Normal 0.9-4.3 [facility] ([place] Comment on above: Performed By: #### D IFF, CBC, MDW, TROPHS, LIP, CMP, GFR, MORPH #### [address] [address] Monocyte %, Manual 17.0 % High 2.0-13.0 Counts include 234 beds at the [facility] ([place]) Comment on above: Performed By: #### D IFF, CBC, MDW, TROPHS, LIP, CMP, GFR, MORPH #### [place] [address] Monocyte, Abs Manual 0.6 10 3/mcL Normal 0.1-1.4 [facility] ([place]) Comment on above: Performed By: #### D IFF, CBC, MDW, TROPHS, LIP, CMP, GFR, MORPH #### [place] [address] Neutrophil %, Manual 42.0 % Low 50.0-75.0 [facility] ([place]) Comment on above: Performed By: #### D IFF, CBC, MDW, TROPHS, LIP, CMP, GFR, MORPH #### [address] [address] Neutrophil, Abs Manual 1.6 10 3/mcL Low 2.3-8.1 [facility] [facility] Comment on above: Performed By: #### D IFF, CBC, MDW, TROPHS, LIP, CMP, GFR, MORPH #### [place] [address] Nucleated RBC 0.0 /100 WBC Normal [facility] ([place]) Comment on above: Performed By: #### D IFF, CBC, MDW, TROPHS, LIP, CMP, GFR, MORPH #### [place] [address] .Morphon 02-22-2023 Platelet Estimate Normal Normal [facility] ([place] Comment on above: Performed By: #### D IFF, CBC, MDW, TROPHS, LIP, CMP, GFR, MORPH #### [place] [address] RBC morphology finding Nom (Bld) See Below Normal [facility] ([place] Comment on above: Result Comment: RBC Morphology appears Normal See Below RBC Morphology appears Normal See Below RBC Morphology appears Normal Performed By: #### D IFF, CBC, MDW, TROPHS, LIP, CMP, GFR, MORPH #### [address] [address] CBCon 02-22-2023 Erythrocyte distribution width (RBC) [Ratio] 12.8 % Normal 11.5-15.5 [facility] ([place] Comment on above: Performed By: #### D IFF, CBC, MDW, TROPHS, LIP, CMP, GFR, MORPH #### [place] [address] Hematocrit (Bld) [Volume fraction] 51.8 % Normal 40.0-52.0 [facility] ([place] Comment on above: Performed By: #### D IFF, CBC, MDW, TROPHS, LIP, CMP, GFR, MORPH #### [place] [address] Hgb 18.2 G/dL High 13.0-17.5 [facility] ([place] Comment on above: Performed By: #### D IFF, CBC, MDW, TROPHS, LIP, CMP, GFR, MORPH #### [place] [address] MCH (RBC) [Entitic mass] 33.5 pg High 27.0-33.0 [facility] ([place] Comment on above: Performed By: #### D IFF, CBC, MDW, TROPHS, LIP, CMP, GFR, MORPH #### [place] [id number] MCHC 35.1 G/dL Normal 32.0-36.0 [facility] ([place] Comment on above: Performed By: #### D IFF, CBC, MDW, TROPHS, LIP, CMP, GFR, MORPH #### [place] [phone] MCV (RBC) [Entitic vol] 95.6 fL Normal 81.0-100.0 A [facility] ([place]) Comment on above: Performed By: #### D IFF, CBC, MDW, TROPHS, LIP, CMP, GFR, MORPH #### [address] [address] Platelet 291 10 3/mcL Normal 150-450 [facility] ([place] Comment on above: Performed By: #### D IFF, CBC, MDW, TROPHS, LIP, CMP, GFR, MORPH #### [place] [phone] Platelet mean volume (Bld) [Entitic vol] 7.8 fL Normal 6.4-10.5 [facility] ([place] Comment on above: Performed By: #### D IFF, CBC, MDW, TROPHS, LIP, CMP, GFR, MORPH #### [place] [id number] RBC 5.42 10 6/mcL Normal 4.50-6.00 [facility] ([place] Comment on above: Performed By: #### D IFF, CBC, MDW, TROPHS, LIP, CMP, GFR, MORPH #### [address] [address] WBC 3.8 10 3/mcL Low 4.5-10.8 [facility] ([place] Comment on above: Performed By: #### D IFF, CBC, MDW, TROPHS, LIP, CMP, GFR, MORPH #### [address] [address] CMPon 02-22-2023 Albumin Level 4.2 G/dL Normal 3.2-4.8 [facility] ([place] Comment on above: Performed By: #### D IFF, CBC, MDW, TROPHS, LIP, CMP, GFR, MORPH #### [place] [phone] Albumin/Globulin [Mass ratio] 1.6 {ratio} Normal 0.9-1.6 [facility] ([place] Comment on above: Performed By: #### D IFF, CBC, MDW, TROPHS, LIP, CMP, GFR, MORPH #### [facility] [address] [place], [place] [address] ALP [Catalytic activity/Vol] 43 U/L Normal 38-126 [facility] ([place] Comment on above: Performed By: #### D IFF, CBC, MDW, TROPHS, LIP, CMP, GFR, MORPH #### [address] [address] ALT [Catalytic activity/Vol] 22 U/L Normal 12-55 [facility] ([place] Comment on above: Performed By: #### D IFF, CBC, MDW, TROPHS, LIP, CMP, GFR, MORPH #### [address] [address] AST [Catalytic activity/Vol] 29 U/L Normal 8-34 [facility] ([place] Comment on above: Performed By: #### D IFF, CBC, MDW, TROPHS, LIP, CMP, GFR, MORPH #### [address] [address] Bili Total 0.80 mg/dL Normal 0.20-1.20 [facility] ([place] Comment on above: Result Comment: Use of this assay is not recommended for patients undergoing treatment with eltrombopag due to the potential for falsely elevated results. Performed By: #### D IFF, CBC, MDW, TROPHS, LIP, CMP, GFR, MORPH #### [address] [address] BUN/Creatinine Ratio 14.9 ratio Normal 10.0-22.0 [facility] ([place]) Comment on above: Performed By: #### D IFF, CBC, MDW, TROPHS, LIP, CMP, GFR, MORPH #### [address] [address] Calcium [Mass/Vol] 9.3 mg/dL Normal 8.7-10.4 Counts include 234 beds at the [facility] ([place] Comment on above: Performed By: #### D IFF, CBC, MDW, TROPHS, LIP, CMP, GFR, MORPH #### [address] [address] Chloride [Moles/Vol] 106 mmol/L Normal 98-110 [facility] ([place] Comment on above: Performed By: #### D IFF, CBC, MDW, TROPHS, LIP, CMP, GFR, MORPH #### [address] [address] CO2 [Moles/Vol] 23 mmol/L Normal 22-32 [facility] ([place] Comment on above: Performed By: #### D IFF, CBC, MDW, TROPHS, LIP, CMP, GFR, MORPH #### [address] [address] Creatinine [Mass/Vol] 0.87 mg/dL Normal 0.60-1.40 [facility] ([place]) Comment on above: Performed By: #### D IFF, CBC, MDW, TROPHS, LIP, CMP, GFR, MORPH #### [address] [address] Electrolyte Balance 10.0 mEq/L Normal 4.0-15.0 [facility] ([place]) Comment on above: Performed By: #### D IFF, CBC, MDW, TROPHS, LIP, CMP, GFR, MORPH #### [address] [address] Globulin 2.7 G/dL Normal 1.5-3.8 [facility] ([place] Comment on above: Performed By: #### D IFF, CBC, MDW, TROPHS, LIP, CMP, GFR, MORPH #### [address] [address] Glucose [Mass/Vol] 102 mg/dL Normal 70-110 Counts include 234 beds at the [facility] ([place] Comment on above: Performed By: #### D IFF, CBC, MDW, TROPHS, LIP, CMP, GFR, MORPH #### [address] [address] Potassium [Moles/Vol] 3.8 mmol/L Normal 3.5-5.0 [facility] ([place] Comment on above: Result Comment: Spec imen slightly hemolyzed. Performed By: #### D IFF, CBC, MDW, TROPHS, LIP, CMP, GFR, MORPH #### [address] [address] Sodium [Moles/Vol] 139 mmol/L Normal 136-145 Counts include 234 beds at the [facility] ([place] Comment on above: Performed By: #### D IFF, CBC, MDW, TROPHS, LIP, CMP, GFR, MORPH #### [address] [address] Total Protein 6.9 G/dL Normal 5.7-8.2 [facility] ([place] Comment on above: Result Comment: No te - New Reference Range in effect 19 Performed By: #### D IFF, CBC, MDW, TROPHS, LIP, CMP, GFR, MORPH #### [address] [address] Urea nitrogen [Mass/Vol] 13.0 mg/dL Normal 8.0-22.0 [facility] ([place] Comment on above: Performed By: #### D IFF, CBC, MDW, TROPHS, LIP, CMP, GFR, MORPH #### [address] [address] LABORATORYOrdered By: Sneha Chow on 02-22-2023 Appearance (U) Clear (02/22/23 5:00 PM) Normal Clear Auto Urine SS Bilirubin Ql (U) Negative (02/22/23 5:00 PM) Normal Neg-Trace Auto Urine SS Color (U) Yellow (02/22/23 5:00 PM) Normal AH Auto Urine SS Glucose Test strip (U) [Mass/Vol] Negative Normal Negative Auto Urine SS Hemoglobin Auto test strip (U) [Mass/Vol] Negative (02/22/23 5:00 PM) Normal Neg-Trace AH Auto Urine SS Ketones Ql (U) Trace mg/dL Normal Neg-Trace AH Auto U rine SS UA Leuk Est Trace *NA* (02/22/23 5:00 PM) Invalid Interpretation Code Negative AH Auto Urine SS UA Nitrite Negative (02/22/23 5:00 PM) Normal Negative AH Auto Urine SS UA pH 5.5 (02/22/23 5:00 PM) Normal 5.0 - 8.0 AH Auto Urine SS UA Spec Grav 1.020 (02/22/23 5:00 PM) Normal 1.006-1.029 AH Auto Urine SS UA Specimen Type Clean Catch (02/22/23 5:00 PM) Normal Auto Urine UA Urobilinogen 1.0 E.U./dL Normal 0.2-1.0 Auto Urine SS LABORATORYOrdered By: SYSTEM SYSTEM on 02-22-2023 Albumin BCP dye [Mass/Vol] 4.2 G/dL Normal 3.2 - 4.8 G/dL ADM SS Albumin/Globulin [Mass ratio] 1.6 {ratio} Normal 0.9 - 1.6 ratio ADM SS ALP [Catalytic activity/Vol] 43 U/L Normal 38 - 126 U/L ADM SS ALT No additional P-5'-P [Catalytic activity/Vol] 22 U/L Normal 12 - 55 U/L ADM SS AST [Catalytic activity/Vol] 29 U/L Normal 8 - 34 U/L ADM SS Basophils (Bld) [#/Vol] 0.1 103/mcL Normal 0.0 - 0.3 10^3/mcL Workflow SS Basophils/100 WBC (Bld) 2.0 % Normal 0.0 - 2.5 % Workflow SS Bilirubin [Mass/Vol] 0.80 mg/dL Normal 0.20 - 1.20 mg/dL ADM SS Comment on above: Interpretive Data: U se of this assay is not recommended for patients undergoing treatment with eltrombopag due to the potential for falsely elevated results. Calcium [Mass/Vol] 9.3 mg/dL Normal 8.7 - 10. 4 mg/dL ADM SS Chloride [Moles/Vol] 106 mmol/L Normal 98 - 11 0 mEq/L ADM SS CO2 [Moles/Vol] 23 mmol/L Normal 22 - 32 mEq/L ADM SS Creatinine [Mass/Vol] 0.87 mg/dL Normal 0.60 - 1.40 mg/dL ADM SS Electrolyte Balance 10.0 mEq/L Normal 4.0 - 15 .0 mEq/L ADM SS Eosinophils (Bld) [#/Vol] 0.1 103/mcL Normal 0. 0 - 0.7 10^3/mcL Workflow SS Eosinophils/100 WBC (Bld) 2.0 % Normal 0.0 - 6.0 % Workflow SS Erythrocyte distribution width (RBC) [Ratio] 12.8 % Normal 11.5 - 15.5 % Workflow SS GFR/1.73 sq M.predicted among blacks MDRD (S/P/Bld) [Vol rate/Area] ml/min/1.73sqm Invalid Interpretation Code [facility] Comment on above: Interpretive Data: GFR Population mean for , Non- Americans Ages 20-29 = 116 mL/min/1.73 sq.m. Ages 30-39 = 107 mL/min/1.73 sq.m. Ages 40-49 = 99 mL/min/1.73 sq.m. Ages 50-59 = 93 mL/min/1.73 sq.m. Ages 60-69 = 85 mL/min/1.73 sq.m. Ages 70+ = 75 mL/min/1.73 sq.m. Chronic Kidney Disease: Less than 60 mL/min/1.73 square meters End Stage Renal Disease: Less than 15 mL/min/1.73 square meters GFR/1.73 sq M.predicted among non-blacks MDRD (S/P/Bld) [Vol rate/Area] ml/min/1.73sqm Invalid Interpretation Code [facility] Comment on above: Interpretive Data: GFR Population mean for , Non- Americans Ages 20-29 = 116 mL/min/1.73 sq.m. Ages 30-39 = 107 mL/min/1.73 sq.m. Ages 40-49 = 99 mL/min/1.73 sq.m. Ages 50-59 = 93 mL/min/1.73 sq.m. Ages 60-69 = 85 mL/min/1.73 sq.m. Ages 70+ = 75 mL/min/1.73 sq.m. Chronic Kidney Disease: Less than 60 mL/min/1.73 square meters End Stage Renal Disease: Less than 15 mL/min/1.73 square meters Globulin 2.7 G/dL Normal 1.5 - 3.8 G/dL ADM SS Glucose [Mass/Vol] 102 mg/dL Normal 70 - 110 mg/dL ADM SS Hematocrit (Bld) [Volume fraction] 51.8 % Normal 40.0 - 52.0 % Workflow SS Hemoglobin (Bld) [Mass/Vol] 18.2 G/dL High 13.0 - 17.5 G/dL Workflow SS Lipase [Catalytic activity/Vol] 25 U/L Normal 12 - 53 U/L ADM SS Comment on above: Interpretive Data: * *Note - New Reference Range in effect 19 Lymphocytes (Bld) [#/Vol] 1.4 103/mcL Normal 0. 9 - 4.3 10^3/mcL AH Workflow SS Lymphocytes/100 WBC (Bld) 37.0 % Normal 20 .0 - 40.0 % AH Workflow SS MCH (RBC) [Entitic mass] 33.5 pg High 27. 0 - 33.0 pg AH Workflow SS MCHC 35.1 G/dL Normal 32.0 - 36.0 G/dL AH Workflow SS MCV (RBC) [Entitic vol] 95.6 fL Normal 81.0 - 100.0 fL AH Workflow SS Monocyte distribution width Auto (Bld) [Entitic vol] 23.75 1 High 0.00 - 20.00 AH Workflow SS Comment on above: Result Comment: For adults in ED, MDW>20.0 may be associated with a higher risk of sepsis during the first 12hrs of hospital admission Monocytes (Bld) [#/Vol] 0.6 103/mcL Normal 0.1 - 1.4 10^3/mcL AH Workflow SS Monocytes/100 WBC (Bld) 17.0 % High 2.0 - 13.0 % AH Workflow SS Neutrophils (Bld) [#/Vol] 1.6 103/mcL Low 2. 3 - 8.1 10^3/mcL AH Workflow SS Neutrophils/100 WBC (Bld) 42.0 % Low 50 .0 - 75.0 % AH Workflow SS Nucleated RBC 0.0 /100 WBC Invalid Interpretation Code AH Workflow SS Platelet mean volume (Bld) [Entitic vol] 7.8 fL Normal 6.4 - 10.5 fL AH Workflow SS Platelets (Bld) [#/Vol] 291 103/mcL Normal 150 - 450 10^3/mcL AH Workflow SS Platelets LM Ql (Bld) Normal *NA* (02/22/23 2:34 PM) Invalid Interpretation Code AH Workflow SS Potassium [Moles/Vol] 3.8 mmol/L Normal 3.5 - 5.0 mEq/L ADM SS Comment on above: Result Comment: Spec imen slightly hemolyzed. Protein [Mass/Vol] 6.9 G/dL Normal 5.7 - 8.2 G/dL ADM SS Comment on above: Interpretive Data: * *Note - New Reference Range in effect 19 RBC (Bld) [#/Vol] 5.42 106/mcL Normal 4.50 - 6.0 0 10^6/mcL AH Workflow SS RBC morphology finding Nom (Bld) See Below 3 *NA* (02/22/23 2:34 PM) Invalid Interpretation Code AH Workflow SS Comment on above: Result Comment: RBC Morphology appears Normal RBC morphology finding Nom (Bld) See Below 4 *NA* (02/22/23 2:34 PM) Invalid Interpretation Code AH Workflow SS Comment on above: Result Comment: RBC Morphology appears Normal RBC morphology finding Nom (Bld) See Below 5 *NA* (02/22/23 2:34 PM) Invalid Interpretation Code AH Workflow SS Comment on above: Result Comment: RBC Morphology appears Normal Sodium [Moles/Vol] 139 mmol/L Normal 136 - 145 mEq/L ADM Troponin I.cardiac DL <= 0.01 ng/mL [Mass/Vol] ng/L Normal 0.00 - 54.00 ng/L ADM SS Urea nitrogen [Mass/Vol] 13.0 mg/dL Normal 8.0 - 22.0 mg/dL ADM SS Urea nitrogen/Creatinine [Mass ratio] 14.9 ratio Normal 10.0 - 22.0 ratio ADM WBC (Bld) [#/Vol] 3.8 103/mcL Low 4.5 - 10.8 10^3/mcL Workflow SS [facility] 02-22-2023 Lipase Level 25 U/L Normal 12-53 [facility] ([place]) Comment on above: Result Comment: No te - New Reference Range in effect 19 Performed By: #### D IFF, CBC, MDW, TROPHS, LIP, CMP, GFR, MORPH #### [address] [address] [facility] 02-22-2023 Troponin I High Sensitivity <2.50 Normal 0.00-54.00 [facility] ([place] Comment on above: Performed By: #### D IFF, CBC, MDW, TROPHS, LIP, CMP, GFR, MORPH #### [address] [address] UAon 02-22-2023 Color (U) Yellow Normal [facility] ([place] Comment on above: Performed By: #### U A #### [place] [address] Glucose (U) [Mass/Vol] Negative Normal Negative [facility] ([place]) Comment on above: Performed By: #### U A #### [place] [address] Ketones Ql (U) Trace Normal Neg-Trace [facility] ([place] Comment on above: Performed By: #### U A #### [place] [address] UA Appear Clear Normal Clear [facility] ([place] Comment on above: Performed By: #### U A #### [place] [address] UA Blood Negative Normal Neg-Trace [facility] ([place] Comment on above: Performed By: #### U A #### [place] [address] UA Leuk Est Trace Normal Negative [facility] ([place] Comment on above: Performed By: #### U A #### [place] [address] UA Nitrite Negative Normal Negative [facility] ([place] Comment on above: Performed By: #### U A #### [place] [address] UA pH 5.5 Normal 5.0 - 8.0 [facility] ([place] Comment on above: Performed By: #### U A #### [place] [address] UA Spec Grav 1.020 Normal 1.006-1.029 [facility] ([place] Comment on above: Performed By: #### U A #### [place] [address] UA Specimen Type Clean Catch Normal [facility] ([place] Comment on above: Performed By: #### U A #### [place] [address] UA Urobilinogen 1.0 E.U./dL Normal 0.2-1.0 [facility] ([place] Comment on above: Performed By: #### U A #### [address] [address] Urobilinogen (U) [Mass/Vol] Negative Normal Neg-Trace [facility] ([place] Comment on above: Performed By: #### U A #### [address] [address] UAOrdered By: Sneha Chow on 02-22-2023 UA Protein Negative Normal Negative AH Auto Urine SS Comment on above: Performed By: #### U A #### [place] [address] Absolute lymphocyte countOrd ered By: Uche Segura on 10-14-2022 Lymphocytes Auto (Unsp spec) [#/Vol] 1.87 10*3/uL 0.83-4.51 [facility] Alternaria alternata IgE ser umOrdered By: Uche Segura on 10-14-2022 A. alternata IgE Qn (S) <0.10 kU/L Class 0 [facility] Basophil percentageOrdered B y: Uche Segura on 10-14-2022 Basophils/100 WBC (Bld) 0.6 % 0-1 [facility] Eosinophils/100 WBC (Bld) 5.0 % 0-5 [facility] Neutrophils (Bld) [#/Vol] 2.3 10*3/uL 2.0-7.7 [facility] Neutrophils/100 WBC (Bld) 45.0 % 47-70 [facility] WBC (Bld) [#/Vol] 5.0 10*3/uL 4.4-11.0 [facility] Blood erythrocytes count (nu mber/volume)Ordered By: Uche Segura on 10-14-2022 RBC (Bld) [#/Vol] 4.72 10*6/uL 4.6-6.2 [facility] Blood hemoglobin measurement (mass/volume)Ordered By: Uche Segura on 10-14-2022 Hemoglobin (Bld) [Mass/Vol] 16.0 g/dL 13.0-16.5 [facility] Blood lymphocytes/100 leukoc ytesOrdered By: Uche Segura on 10-14-2022 Lymphocytes/100 WBC (Bld) 37.1 % 19-41 [facility] Blood monocytes/100 leukocyt esOrdered By: Uche Segura on 10-14-2022 Monocytes/100 WBC (Bld) 11.9 % 0-10 [facility] Blood platelet mean volumeOr dered By: Uceh Segura on 10-14-2022 Platelet mean volume (Bld) [Entitic vol] 9.6 fL 6.2-12.0 [facility] Determination of erythrocyte mean corpuscular volume (MCV)Ordered By: Uche Segura on 10-14-2022 MCV (RBC) [Entitic vol] 97.2 fL 80-94 [facility] Hematocrit Auto (Bld) [Volum e fraction]Ordered By: Uche Segura on 10-14-2022 Hematocrit (Bld) [Volume fraction] 45.9 % 40-54 [facility] Laboratory - Hematology and Cell countsOrdered By: Uche Segura on 10-14-2022 Erythrocyte distribution width (RBC) [Entitic vol] 45.3 fL 35.1-43.9 [facility] Erythrocyte distribution width (RBC) [Ratio] 12.7 % 11.6-14.6 [facility] Immature granulocytes/100 WBC (Bld) 0.400 % 0.0-0.9 [facility] Comment on above: IG% - Immature Granu locytes (promyelocytes, myelocytes and metamyelocytes) > 1% indicates that a LEFT SHIFT is Present. MCH (RBC) [Entitic mass] 33.9 pg 27.0-32.0 [facility] Nucleated RBC/100 WBC (Bld) [Ratio] 0 % 0-5 [facility] Laboratory - Miscellaneous t estsOrdered By: Uche Segura on 10-14-2022 Service comment (Unsp spec) [Interp] Comment . [facility] Comment on above: Levels of Specific I gE Class Description of Class ----- < 0.10 0 Negative 0.10 - 0.31 0/I Equivocal/Low 0.32 - 0.55 I Low 0.56 - 1.40 II Moderate 1.41 - 3.90 III High 3.91 - 19.00 IV Very High 19.01 - 100.00 V Very High >100.00 Very High MCHC Auto (RBC) [Mass/Vol]Or dered By: Uche Segura on 10-14-2022 MCHC (RBC) [Mass/Vol] 34.9 g/dL 32-36 [facility] No Panel InformationOrdered By: Uche Segura on 10-14-2022 Common Ragweed (Short) Allergen 0.16 kU/L Class 0/I [facility] Estonian Plantain Allergen (RAST) <0.10 kU/L Class 0 [facility] Immunoglobulin E 536 IU/mL 6-495 [facility] Comment on above: Performed at: [email or web address] [id number] Director: Carmen Ascencio MD, Phone: [phone] Mouse Urine Allergen IgE Antibody 1.46 kU/L Class III [facility] Comment on above: Performed at: [employer] [id number] Director: Carmen Ascencio MD, Phone: [phone] Platelets bldOrdered By: Navin Segura on 10-14-2022 Platelets (Bld) [#/Vol] 270 10*3/uL 150-450 [facility] Serum Aspergillus flavus ant ibody detection by immunodiffusionOrdered By: Uche Segura on 10-14-2022 A. flavus Ab Immune diff Ql (S) Negative Neg:<1:1 [facility] Serum Aspergillus fumigatus antibody detection by immunodiffusionOrdered By: Uche Segura on 10-14-2022 A. fumigatus Ab Immune diff Ql (S) Negative Neg:<1:1 [facility] Serum Aspergillus niger anti body detection by immunodiffusionOrdered By: Uche Segura on 10-14-2022 A. niger Ab Immune diff Ql (S) Negative Neg:<1:1 [facility] Serum Bermuda grass IgE anti body assay (units/volume)Ordered By: Uche Segura on 10-14-2022 Bermuda grass IgE Qn (S) <0.10 kU/L Class 0 [facility] Serum Dermatophagoides farin ae specific IgE antibody assay (units/volume)Ordered By: Uche Segura on 10-14-2022 Afghan house dust mite IgE Qn (S) 0.79 kU/L Class II [facility] Serum house dust mi te IgE antibody assay (units/volume)Ordered By: Uche Segura on 10-14-2022 house dust mite IgE Qn (S) 0.79 kU/L Class II [facility] Serum [place] blue grass Ig E antibody assay (units/volume)Ordered By: Uche Segura on 10-14-2022 [place] blue grass IgE Qn (S) <0.10 kU/L Class 0 [facility] Serum cat dander IgE antibod y assay (units/volume)Ordered By: Uche Segura on 10-14-2022 Cat dander IgE Qn (S) 75.20 kU/L Class V [facility] Serum dog epithelium IgE ant ibody assay (units/volume)Ordered By: Uche Segura on 10-14-2022 Dog epithelium IgE Qn (S) 8.15 kU/L Class IV [facility] Serum white elm IgE antibody assay (units/volume)Ordered By: Uche Segura on 10-14-2022 White [place]m IgE Qn (S) <0.10 kU/L Class 0 [facility] Serum white oak IgE antibody assay (units/volume)Ordered By: Uche Segura on 10-14-2022 [place] IgE Qn (S) <0.10 kU/L Class 0 [facility] LABORATORYOrdered By: Calista Garcia on 04-17-2022 FLUAV RNA JITENDRA+probe Ql (Resp) Negative 2 (04/17/22 9:23 AM) Invalid Interpretation Code Negative AH Auto Viro/Sero SS Comment on above: Result Comment: [place] [id number] FLUBV RNA JITENDRA+probe Ql (Resp) Negative 3 (04/17/22 9:23 AM) Invalid Interpretation Code Negative AH Auto Viro/Sero SS Comment on above: Result Comment: [place] [id number] RSV PCR Positive 4 *ABN* (04/17/22 9:23 AM) Invalid Interpretation Code Negative AH Auto Viro/Sero SS Comment on above: Result Comment: Th is is a potential nosocomial infectious agent. Infection Control has been notified. Notes [id number] SARS-CoV-2 (COVID-19) RNA JITENDRA+probe Ql (Resp) Negative 1 (04/17/22 9:23 AM) Invalid Interpretation Code Negative AH Auto Viro/Sero SS Comment on above: Result Comment: [place] [id number] LABORATORYOrdered By: SYSTEM SYSTEM on 06-24-2021 Base excess Calc (BldMV) [Moles/Vol] 9.0 mEq/L Invalid Interpretation Code 4.0 - 15.0 mEq/L AH ADM SS Basophils (Bld) [#/Vol] 0.00 103/mcL Invalid Interpretation Code 0.00 - 0.27 10^3/mcL AH Remisol SS Basophils/100 WBC (Bld) 0.2 % Invalid Interpretation Code 0.0 - 2.5 % AH Remisol SS Calcium [Mass/Vol] 9.9 mg/dL Invalid Interpretation Code 8.4 - 10.1 mg/dL AH ADM SS Chloride [Moles/Vol] 106 mmol/L Invalid Interpretation Code 98 - 110 mEq/L AH ADM SS CO2 [Moles/Vol] 27 mmol/L Invalid Interpretation Code 22 - 32 mEq/L AH ADM SS Creatinine [Mass/Vol] 0.74 mg/dL Invalid Interpretation Code 0.60 - 1.40 mg/dL AH ADM SS Eosinophils (Bld) [#/Vol] 0.00 103/mcL Invali d Interpretation Code 0.00 - 0.65 10^3/mcL AH Remisol SS Eosinophils/100 WBC (Bld) 0.1 % Invali d Interpretation Code 0.0 - 6.0 % AH Remisol SS Erythrocyte distribution width (RBC) [Ratio] 13.7 % Invalid Interpretation Code 11.5 - 15.5 % AH Remisol SS GFR/1.73 sq M.predicted among blacks MDRD (S/P/Bld) [Vol rate/Area] ml/min/1.73sqm Invalid Interpretation Code AH ADM SS GFR/1.73 sq M.predicted among non-blacks MDRD (S/P/Bld) [Vol rate/Area] ml/min/1.73sqm Invalid Interpretation Code AH ADM SS Glucose [Mass/Vol] 123 mg/dL Invalid Interpretation Code 70 - 110 mg/dL AH ADM SS Hematocrit (Bld) [Volume fraction] 46.8 % Invalid Interpretation Code 40.0 - 52.0 % AH Remisol SS Hemoglobin (Bld) [Mass/Vol] 16.2 G/dL Invalid Interpretation Code 13.0 - 17.5 G/dL AH Remisol SS Lymphocytes (Bld) [#/Vol] 0.90 103/mcL Invali d Interpretation Code 0.90 - 4.32 10^3/mcL AH Remisol SS Lymphocytes/100 WBC (Bld) 5.9 % Invali d Interpretation Code 20.0 - 40.0 % AH Remisol SS MCH (RBC) [Entitic mass] 32.2 pg Invalid Interpretation Code 27.0 - 33.0 pg AH Remisol SS MCHC (RBC) [Mass/Vol] 34.5 G/dL Invalid Interpretation Code 32.0 - 36.0 G/dL AH Remisol SS MCV (RBC) [Entitic vol] 93.3 fL Invalid Interpretation Code 81.0 - 100.0 fL AH Remisol SS Monocytes (Bld) [#/Vol] 1.40 103/mcL Invalid Interpretation Code 0.09 - 1.40 10^3/mcL AH Remisol SS Monocytes/100 WBC (Bld) 9.0 % Invalid Interpretation Code 2.0 - 13.0 % AH Remisol SS Neutrophils (Bld) [#/Vol] 13.50 103/mcL Invali d Interpretation Code 2.25 - 8.10 10^3/mcL AH Remisol SS Neutrophils/100 WBC (Bld) 84.8 % Invali d Interpretation Code 50.0 - 75.0 % AH Remisol SS Platelet mean volume (Bld) [Entitic vol] 7.7 fL Invalid Interpretation Code 6.4 - 10.5 fL AH Remisol SS Platelets (Bld) [#/Vol] 385 103/mcL Invalid Interpretation Code 150 - 450 10^3/mcL AH Remisol SS Potassium [Moles/Vol] 3.6 mmol/L Invalid Interpretation Code 3.5 - 5.0 mEq/L AH ADM SS RBC (Bld) [#/Vol] 5.02 106/mcL Invalid Interpretation Code 4.50 - 6.00 10^6/mcL AH Remisol SS Sodium [Moles/Vol] 142 mmol/L Invalid Interpretation Code 136 - 145 mEq/L ADM SS Troponin I.cardiac DL <= 0.01 ng/mL [Mass/Vol] ng/L Invalid Interpretation Code 0.00 - 54.00 ng/L AH ADM SS Urea nitrogen [Mass/Vol] 18.0 mg/dL Invalid Interpretation Code 8.0 - 22.0 mg/dL ADM SS Urea nitrogen/Creatinine [Mass ratio] 24.3 ratio Invalid Interpretation Code 10.0 - 22.0 ratio AH ADM SS WBC (Bld) [#/Vol] 15.90 103/mcL Invalid Interpretation Code 4.50 - 10.80 10^3/mcL Remisol SS LABORATORYOrdered By: Rita Monson on 06-24-2021 Fibrin D-dimer DDU (PPP) [Mass/Vol] ng/mL D-DU Invalid Interpretation Code 0 - 230 ng/mL D-DU Auto Coag SS Comment on above: Result Comment: Resu lts reported in D-DU ng/ml. Negative for D-dimer. DVT/PE is highly unlikely. Note: False negative results may be seen in patients on anticoagulant therapy. [facility] DATE OF SERVICE: 10/08/2016CHIEF COMPLAINT: Bites to legs, arms, feet, and trunk.HISTORY OF CHIEF COMPLAINT: This is a 26-year-old male who reports he is stayingwith his in-laws. They all had bites all over them, and now, he has them, too. Hestates he saw one bug once. Otherwise, he does not know what is biting him.ALLERGIES: No known drug allergies.PAST MEDICAL HISTORY: ADHD, asthma, pneumonia, seizures, depression, hypertension,frequ ent headaches.PAST SURGICAL HISTORY: Denies.SOCIAL HISTORY: Patient smokes tobacco less than a qhyr-bf-e-pack per day. Drinksalcohol on occasion.HOME MEDICATIONS: Breo, ProAir, and albuterol inhaler.REVIEW OF SYSTEMS: As per history of chief complaint. All other systems arenegative.PHYSIC AL EXAMINATION:Vital Signs: Were stable. Temperature 98.3.General: Patient is alert and oriented x3, appeared in no acute distress.Heart: Regular rate and rhythm, without murmur.Lungs: Clear to auscultation throughout. No wheezes or rhonchi.HEENT: Nares and pharynx are widely patent.Skin: On patients skin are multiple scattered bug bites present on arms, legs,trunk, back, chest, and abdomen. Each lesion is approximately 5-6 mm, red andraised. There is some urticarial reaction around these little bites.URGENT CARE COURSE: Patient was given Kenalog and Decadron in one IM injection.IMPRESSI ON: Bug bites, multiple.PLAN: Patient was placed on prednisone and betamethasone cream. 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 [facility] was [facility]. Kelly Solis Daisyrichard, [facility] PATIENT NAME: DAHLIA CHOE G132Huma Radha Bella MEDICAL REC #: [id number], [place] [address] [facility] STATCARE REPORT STATCARE PHYSICIANDM/[id number] 5DD: 10/08/2016 10:22DT: 10/09/2016 08:44SSI File#: [id number] #: [id number] [facility] PATIENT NAME: DAHLIA CHOE G132Huma Radha Bella MEDICAL REC #: [id number], [place] [address] [facility] STATCARE REPORT STATCARE PHYSICIAN Normal [facility] [place] STAT[facility]ARE REPORT This is a preliminary report only, as the practitioner review and authentication has not occurred. [facility] Vital Signs Date Time Vital Sign Value Performing Clinician Facility 07-01-2024 09:56-0400 Body height 175.[address] Kellie Caballero DO Work Phone: [facility] 07-01-2024 09:56-0400 Body mass index (BMI) [Ratio] 27.8 kg/m2 Dr. Kellie Caballero DO Work Phone: [facility] 07-01-2024 09:56-0400 Body temperature 97.7 [degF] Dr. Kellie Caballero DO Work Phone: [facility] 07-01-2024 09:56-0400 Body weight 85.[address] Kellie Caballero DO Work Phone: [facility] 07-01-2024 09:56-0400 Diastolic blood pressure 56 mm[Hg] Dr. Kellie Caballero DO Work Phone: [facility] 07-01-2024 09:56-0400 Heart rate 56 /min Dr. Kellie Caballero DO Work Phone: [facility] 07-01-2024 09:56-0400 Respiratory rate 16 /min Dr. Kellie Caballero DO Work Phone: [facility] 07-01-2024 09:56-0400 SaO2% (BldA) [Mass fraction] 97 % Dr. Kellie Caballero DO Work Phone: [facility] 07-01-2024 09:56-0400 Systolic blood pressure 110 mm[Hg] Dr. Kellie Caballero DO Work Phone: [facility] 06-10-2024 08:01-0500 Body mass index (BMI) [Ratio] 24.5 kg/m2 Dr. Kellie Caballero DO Work Phone: [facility] 06-10-2024 08:01-0500 Body temperature 97.5 [degF] Dr. Kellie Caballero DO Work Phone: [facility] 06-10-2024 08:01-0500 Body weight 75.[address] Kellie Caballero DO Work Phone: [facility] 06-10-2024 08:01-0500 Diastolic blood pressure 76 mm[Hg] Dr. Kellie Caballero DO Work Phone: [facility] 06-10-2024 08:01-0500 Heart rate 71 /min Dr. Kellie Caballero DO Work Phone: [facility] 06-10-2024 08:01-0500 Respiratory rate 20 /min Dr. Kellie Caballero DO Work Phone: [facility] 06-10-2024 08:01-0500 SaO2% (BldA) [Mass fraction] 94 % Dr. Kellie Caballero DO Work Phone: [facility] 06-10-2024 08:01-0500 Systolic blood pressure 122 mm[Hg] Dr. Kellie Caballero DO Work Phone: [facility] 06-03-2024 08:33-0500 Body mass index (BMI) [Ratio] 25.1 kg/m2 Dr. Kellie Caballero DO Work Phone: [facility] 06-03-2024 08:33-0500 Body temperature 97 [degF] Dr. Kellie Caballero DO Work Phone: [facility] 06-03-2024 08:33-0500 Body weight 77.[address] Kellie Caballero DO Work Phone: [facility] 06-03-2024 08:33-0500 Diastolic blood pressure 71 mm[Hg] Dr. Kellie Caballero DO Work Phone: [facility] 06-03-2024 08:33-0500 Heart rate 68 /min Dr. Kellie Caballero DO Work Phone: [facility] 06-03-2024 08:33-0500 Respiratory rate 16 /min Dr. Kellie Caballero DO Work Phone: [facility] 06-03-2024 08:33-0500 SaO2% (BldA) [Mass fraction] 94 % Dr. Kellie Caballero DO Work Phone: [facility] 06-03-2024 08:33-0500 Systolic blood pressure 144 mm[Hg] Dr. Kellie Caballero DO Work Phone: [facility] 05-06-2024 10:15-0500 Body temperature 97.4 [degF] Dr. Kellie Caballero DO Work Phone: [facility] 05-06-2024 10:15-0500 Diastolic blood pressure 66 mm[Hg] Dr. Kellie Caballero DO Work Phone: [facility] 05-06-2024 10:15-0500 Heart rate 60 /min Dr. Kellie Caballero DO Work Phone: [facility] 05-06-2024 10:15-0500 Respiratory rate 16 /min Dr. Kellie Caballero DO Work Phone: [facility] 05-06-2024 10:15-0500 SaO2% (BldA) [Mass fraction] 98 % Dr. Kellie Caballero DO Work Phone: [facility] 05-06-2024 10:15-0500 Systolic blood pressure 116 mm[Hg] Dr. Kellie Caballero DO Work Phone: [facility] 04-01-2024 08:55-0500 Body mass index (BMI) [Ratio] 23.6 kg/m2 Dr. Kellie Caballero DO Work Phone: [facility] 04-01-2024 08:55-0500 Body temperature 96.7 [degF] Dr. Kellie Caballero DO Work Phone: [facility] 04-01-2024 08:55-0500 Body weight 72.[address] Kellie Caballero DO Work Phone: [facility] 04-01-2024 08:55-0500 Diastolic blood pressure 73 mm[Hg] Dr. Kellie Caballero DO Work Phone: [facility] 04-01-2024 08:55-0500 Heart rate 73 /min Dr. Kellie Caballero DO Work Phone: [facility] 04-01-2024 08:55-0500 Respiratory rate 16 /min Dr. Kellie Caballero DO Work Phone: [facility] 04-01-2024 08:55-0500 SaO2% (BldA) [Mass fraction] 97 % Dr. Kellie Caballero DO Work Phone: [facility] 04-01-2024 08:55-0500 Systolic blood pressure 124 mm[Hg] Dr. Kellie Caballero DO Work Phone: [facility] 03-04-2024 08:57-0500 Body mass index (BMI) [Ratio] 23.6 kg/m2 Dr. Kellie Caballero DO Work Phone: [facility] 03-04-2024 08:57-0500 Body temperature 96.7 [degF] Dr. Kellie Caballero DO Work Phone: [facility] 03-04-2024 08:57-0500 Body weight 72.[address] Kellie Caballero DO Work Phone: [facility] 03-04-2024 08:57-0500 Diastolic blood pressure 83 mm[Hg] Dr. Kellie Caballero DO Work Phone: [facility] 03-04-2024 08:57-0500 Heart rate 70 /min Dr. Kellie Caballero DO Work Phone: [facility] 03-04-2024 08:57-0500 Respiratory rate 16 /min Dr. Kellie Caballero DO Work Phone: [facility] 03-04-2024 08:57-0500 SaO2% (BldA) [Mass fraction] 96 % Dr. Kellie Caballero DO Work Phone: [facility] 03-04-2024 08:57-0500 Systolic blood pressure 128 mm[Hg] Dr. Kellie Caballero DO Work Phone: [facility] 05-01-2023 09:26-0500 Body height 172.[address] Kellie Caballero Work Phone: [facility] 05-01-2023 09:26-0500 Body mass index (BMI) [Ratio] 27 kg/m2 Dr. Kellie Caballero Work Phone: [facility] 05-01-2023 09:26-0500 Body temperature 97.1 [degF] Dr. Kellie Caballero Work Phone: [facility] 05-01-2023 09:26-0500 Body weight 80.[address] Kellie Caballero Work Phone: [facility] 05-01-2023 09:26-0500 Diastolic blood pressure 70 mm[Hg] Dr. Kellie Caballero Work Phone: [facility] 05-01-2023 09:26-0500 Heart rate 77 /min Dr. Kellie Caballero Work Phone: [facility] 05-01-2023 09:26-0500 Respiratory rate 16 /min Dr. Kellie Caballero Work Phone: [facility] 05-01-2023 09:26-0500 SaO2% (BldA) [Mass fraction] 93 % Dr. Kellie Caballero Work Phone: [facility] 05-01-2023 09:26-0500 Systolic blood pressure 128 mm[Hg] Dr. Kellie Caballero Work Phone: [facility] 04-10-2023 17:15-0500 Diastolic Blood Pressure Non-Invasive 91 mm[Hg] DR TASNEEM HERRERA DO [facility] 04-10-2023 17:15-0500 Heart rate 72 /min DR TASNEEM HERRERA DO [facility] 04-10-2023 17:15-0500 Respiratory rate 16 /min DR TASNEEM HERRERA DO [facility] 04-10-2023 17:15-0500 Systolic Blood Pressure Non-Invasive 146 mm[Hg] DR TASNEEM HERRERA DO [facility] 04-10-2023 16:37-0500 Diastolic Blood Pressure Non-Invasive 91 mm[Hg] DR TASNEEM HERRERA DO [facility] 04-10-2023 16:37-0500 Heart rate 68 /min DR TASNEEM HERRERA DO [facility] 04-10-2023 16:37-0500 Respiratory rate 18 /min DR TASNEEM HERRERA DO [facility] 04-10-2023 16:37-0500 Systolic Blood Pressure Non-Invasive 140 mm[Hg] DR TASNEEM HERRERA DO [facility] 04-10-2023 15:58-[address] TASNEEM HERERRA DO [facility] 04-10-2023 15:58-[address] TASNEEM HERRERA DO [facility] 04-10-2023 15:58-0500 Diastolic Blood Pressure Non-Invasive 94 mm[Hg] DR TASNEEM HERRERA DO [facility] 04-10-2023 15:58-0500 Heart rate 84 /min DR TASNEEM HERRERA DO [facility] 04-10-2023 15:58-0500 Mean blood pressure 110 mm[Hg] DR TASNEEM HERRERA DO [facility] 04-10-2023 15:58-0500 Respiratory rate 18 /min DR TASNEEM HERRERA DO [facility] 04-10-2023 15:58-0500 Systolic Blood Pressure Non-Invasive 153 mm[Hg] DR TASNEEM HERRERA DO [facility] 04-10-2023 13:24-[address] TSANEEM HERRERA DO [facility] 04-10-2023 13:24-[address] TASNEEM HERRERA DO [facility] 04-10-2023 13:24-0500 Body temperature 98.24 [degF] DR TASNEEM HERRERA DO [facility] 04-10-2023 13:24-0500 Body weight 81.[address] TASNEEM HERRERA DO [facility] 03-16-2023 09:07-0500 Body height 172.[address] Kellie Caballero Work Phone: [facility] 03-16-2023 09:07-0500 Body mass index (BMI) [Ratio] 24.3 kg/m2 Dr. Kellie Caballero Work Phone: [facility] 03-16-2023 09:07-0500 Body temperature 98.1 [degF] Dr. Kellie Caballero Work Phone: [facility] 03-16-2023 09:07-0500 Body weight 72.[address] Kellie Caballero Work Phone: [facility] 03-16-2023 09:07-0500 Diastolic blood pressure 92 mm[Hg] Dr. Kellie Caballero Work Phone: [facility] 03-16-2023 09:07-0500 Heart rate 83 /min Dr. Kellie Caballero Work Phone: [facility] 03-16-2023 09:07-0500 Respiratory rate 16 /min Dr. Kellie Caballero Work Phone: [facility] 03-16-2023 09:07-0500 SaO2% (BldA) [Mass fraction] 97 % Dr. Kellie Caballero Work Phone: [facility] 03-16-2023 09:07-0500 Systolic blood pressure 130 mm[Hg] Dr. Kellie Caballero Work Phone: [facility] 03-16-2023 07:59-0500 Body mass index (BMI) [Ratio] 24.5 kg/m2 Dr. Kellie Caballero Work Phone: [facility] 03-16-2023 07:59-0500 Body temperature 98.1 [degF] Dr. Kellie Caballero Work Phone: [facility] 03-16-2023 07:59-0500 Body weight 73.[address] Kellie Caballero Work Phone: [facility] 03-16-2023 07:59-0500 Diastolic blood pressure 91 mm[Hg] Dr. Kellie Caballero Work Phone: [facility] 03-16-2023 07:59-0500 Heart rate 89 /min Dr. Kellie Caballero Work Phone: [facility] 03-16-2023 07:59-0500 Respiratory rate 18 /min Dr. Kellie Caballero Work Phone: [facility] 03-16-2023 07:59-0500 SaO2% (BldA) [Mass fraction] 96 % Dr. Kellie Caballero Work Phone: [facility] 03-16-2023 07:59-0500 Systolic blood pressure 136 mm[Hg] Dr. Kellie Caballero Work Phone: [facility] 02-22-2023 20:15-0500 Diastolic Blood Pressure Non-Invasive 86 mm[Hg] ODALIS CERVANTES MD [facility] 02-22-2023 20:15-0500 Heart rate 68 /min ODALIS CERVANTES MD [address] [place] [address] 02-22-2023 20:15-0500 Respiratory rate 18 /min ODALIS CERVANTES MD [address] [place] [address] 02-22-2023 20:15-0500 Systolic Blood Pressure Non-Invasive 133 mm[Hg] ODALIS CERVANTES MD [address] [place] [address] 02-22-2023 16:28-0500 Diastolic Blood Pressure Non-Invasive 81 mm[Hg] ODALIS CERVANTES MD [address] [place] [address] 02-22-2023 16:28-0500 Heart rate 72 /min ODALIS CERVANTES MD [address] [place] [address] 02-22-2023 16:28-0500 Respiratory rate 18 /min ODALIS CERVANTES MD [address] [place] [address] 02-22-2023 16:28-0500 Systolic Blood Pressure Non-Invasive 146 mm[Hg] ODALIS CERVANTES MD [address] [place] [address] 02-22-2023 14:22-0500 Body temperature 97.16 [degF] ODALIS CERVANTES MD [address] [place] [address] 02-22-2023 14:22-0500 Body weight 73 kg ODALIS CERVANTES MD [address] [place] [address] 02-22-2023 14:22-0500 Diastolic Blood Pressure Non-Invasive 118 mm[Hg] ODALIS CERVANTES MD [address] 02-22-2023 14:22-0500 Heart rate 92 /min ODALIS CERVANTES MD [address] [place] [address] 02-22-2023 14:22-0500 Respiratory rate 16 /min ODALIS CERVANTES MD [address] [place] [address] 02-22-2023 14:22-0500 Systolic Blood Pressure Non-Invasive 151 mm[Hg] ODALIS CERVANTES MD [address] [place] [address] 01-02-2023 11:23-0400 Body temperature 97.9 [degF] Dr. Kellie Caballero Work Phone: [facility] 01-02-2023 11:23-0400 Diastolic blood pressure 80 mm[Hg] Dr. Kellie Caballero Work Phone: [facility] 01-02-2023 11:23-0400 Heart rate 70 /min Dr. Kellie Caballero Work Phone: [facility] 01-02-2023 11:23-0400 Respiratory rate 18 /min Dr. Kellie Caballero Work Phone: [facility] 01-02-2023 11:23-0400 SaO2% (BldA) [Mass fraction] 97 % Dr. Kellie Caballero Work Phone: [facility] 01-02-2023 11:23-0400 Systolic blood pressure 134 mm[Hg] Dr. Kellie Caballero Work Phone: [facility] 01-02-2023 08:59-0400 Body mass index (BMI) [Ratio] 25 kg/m2 Dr. Kellie Caballero Work Phone: [facility] 01-02-2023 08:59-0400 Body weight 74.[address] Kellie Caballero Work Phone: [facility] 12-16-2022 12:14-0400 Body temperature 97.7 [degF] JAYNE WOOTEN MD [facility] 12-16-2022 12:14-0400 Body weight 74.2 kg JAYNE WOOTEN MD [facility] 12-16-2022 12:14-0400 Diastolic Blood Pressure Non-Invasive 90 1 JAYNE WOOTEN MD [facility] 12-16-2022 12:14-0400 Heart rate 75 /min JAYNE WOOTEN MD [facility] 12-16-2022 12:14-0400 Respiratory rate 20 /min JAYNE WOOTEN MD [facility] 12-16-2022 12:14-0400 Systolic Blood Pressure Non-Invasive 136 1 JAYNE WOOTEN MD [facility] 11-20-2022 07:58-0400 Body mass index (BMI) [Ratio] 24.9 kg/m2 Dr. Kellie Caballero Work Phone: [facility] 11-20-2022 07:58-0400 Body temperature 97.6 [degF] Dr. Kellie Caballero Work Phone: [facility] 11-20-2022 07:58-0400 Body weight 74.[address] Kellie Caballero Work Phone: [facility] 11-20-2022 07:58-0400 Diastolic blood pressure 84 mm[Hg] Dr. Kellie Caballero Work Phone: [facility] 11-20-2022 07:58-0400 Heart rate 73 /min Dr. Kellie Caballero Work Phone: [facility] 11-20-2022 07:58-0400 Respiratory rate 18 /min Dr. Kellie Caballero Work Phone: [facility] 11-20-2022 07:58-0400 SaO2% (BldA) [Mass fraction] 97 % Dr. Kellie Caballero Work Phone: [facility] 11-20-2022 07:58-0400 Systolic blood pressure 135 mm[Hg] Dr. Kellie Caballero Work Phone: [facility] 10-14-2022 08:39-0400 Body height 172.[address] Uche Segura Work Phone: [facility] 10-14-2022 08:39-0400 Body mass index (BMI) [Ratio] 25 kg/m2 Dr. Uche Segura Work Phone: [facility] 10-14-2022 08:39-0400 Body temperature 97.3 [degF] Dr. Uche Segura Work Phone: [facility] 10-14-2022 08:39-0400 Body weight 74.[address] Uche Segura Work Phone: [facility] 10-14-2022 08:39-0400 Diastolic blood pressure 82 mm[Hg] Dr. Uche Segura Work Phone: [facility] 10-14-2022 08:39-0400 Heart rate 62 /min Dr. Uche Segura Work Phone: [facility] 10-14-2022 08:39-0400 Respiratory rate 18 /min Dr. Uche Segura Work Phone: [facility] 10-14-2022 08:39-0400 SaO2% (BldA) [Mass fraction] 96 % Dr. Uche Segura Work Phone: [facility] 10-14-2022 08:39-0400 Systolic blood pressure 135 mm[Hg] Dr. Uche Segura Work Phone: [facility] 04-17-2022 08:33-0500 Body temperature 97.88 [degF] JAYNE WOOTEN MD [facility] 04-17-2022 08:33-0500 Body weight 77.5 kg JAYNE WOOTEN MD [facility] 04-17-2022 08:33-0500 Diastolic Blood Pressure Non-Invasive 126 1 JAYNE WOOTEN MD [facility] 04-17-2022 08:33-0500 Heart rate 97 /min JAYNE WOOTEN MD [facility] 04-17-2022 08:33-0500 Respiratory rate 18 /min JAYNE WOOTEN MD [facility] 04-17-2022 08:33-0500 Systolic Blood Pressure Non-Invasive 161 1 JAYNE WOOTEN MD [facility] 06-24-2021 12:05-0400 Diastolic blood pressure 71 mm[Hg] ZULAY ZAMAN DO [facility] 06-24-2021 12:05-0400 Heart rate 88 /min ZULAY [email or web address] [place] [employer] 06-24-2021 12:05-0400 Mean blood pressure 91 mm[Hg] ZULAY GONSALEZCodelearn [facility] 06-24-2021 12:05-0400 Respiratory rate 17 /min ZULAY [email or web address] [facility] 06-24-2021 12:05-0400 Systolic blood pressure 131 mm[Hg] ZULAY MOSESArmor5 [facility] 06-24-2021 09:05-0400 Heart rate 107 /min ZULAY [email or web address] [facility] 06-24-2021 09:05-0400 Respiratory rate 18 /min [facility] 06-24-2021 08:50-0400 Heart rate 81 /min ZULAY MOSESArm[employer] [facility] 06-24-2021 08:50-0400 Respiratory rate 14 /min ZULAY [email or web address] [facility] 06-24-2021 08:08-0400 Body temperature 98.06 [degF] [facility] 06-24-2021 08:08-0400 Body weight 66.5 kg ZULAY MOSESArm[employer]5 [facility] 06-24-2021 08:08-0400 Diastolic blood pressure 75 mm[Hg] ZULAY ZAMAN [employer] [facility] 06-24-2021 08:08-0400 Heart rate 103 /min ZULAY ZAMAN DO [facility] 06-24-2021 08:08-0400 Systolic blood pressure 139 mm[Hg] ZULAY ZAMAN DO [facility] Encounters Encounter Date Encounter Type Care Provider Facility Start: 09-09-2024 ambulatory Rosanna Saunders NP Fac ility:[facility] Start: 07-29-2024 End: 07-29-2024 ambulatory Rosanna Saunders NP Facility:[facility] Start: 07-01-2024 End: 07-01-2024 Patient encounter procedure Rosanna Saunders NP-C -[facility] Work Phone: Start: 07-01-2024 End: 07-01-[address] Kellie Caballero DO Work Phone: [facility] Work Phone: Start: 06-10-2024 End: 06-10-2024 Patient encounter procedure Rosanna Saunders NP-C -[facility] Work Phone: Start: 06-10-2024 End: 06-10-2024 ambulatory Rosanna Saunders NP Facility:[facility] Start: 06-03-2024 End: 06-03-2024 Patient encounter procedure Rosanna Saunders NP-C -[facility] Work Phone: Start: 06-03-2024 End: 06-03-2024 ambulatory Kellie Caballero Facility:[facility] Start: 05-06-2024 End: 05-06-2024 ambulatory Kellie Caballero Facility:[facility] Start: 05-06-2024 End: 05-06-2024 Patient encounter procedure Rosanna Saunders NP-C -[facility] Work Phone: Start: 04-01-2024 End: 04-01-2024 Patient encounter procedure Rosanna Saunders POCKET ASSEMBLER-C -[facility] Work Phone: Start: 04-01-2024 End: 04-01-2024 ambulatory Rosanna Saunders POCKET ASSEMBLER Facility:[facility] Start: 03-04-2024 End: 03-04-2024 Patient encounter procedure Rosanna Saunders POCKET ASSEMBLER-C -[facility] Work Phone: Start: 03-04-2024 End: 03-04-2024 ambulatory Rosanna Saunders POCKET ASSEMBLER Facility:[facility] Start: 01-29-2024 End: 01-29-2024 ambulatory Rosanna Saunders POCKET ASSEMBLER Facility:[facility] Start: 01-01-2024 End: 01-01-2024 ambulatory Rosanna Saunders POCKET ASSEMBLER Facility:[facility] Start: 12-30-2023 End: 12-30-2023 Emergency department patient visit CHETAN CAMEJO MD Facility:A Start: 12-24-2023 End: 12-24-2023 Emergency department patient visit KELLIE CABALLERO DO Facility:A Start: 12-11-2023 End: 12-11-2023 ambulatory Rosanna Saunders NP Facility:[facility] Start: 10-18-2023 End: 10-18-2023 Emergency department patient visit KELLIE CABALLERO DO Facility:[facility] Start: 08-21-2023 End: 09-29-2023 ambulatory ARMANI MAY DO Facility:[facility] Start: 08-10-2023 End: 08-10-2023 ambulatory ARMANI MAY DO Facility:[facility] Start: 07-27-2023 End: 07-27-2023 ambulatory ARMANI MAY DO Facility:A Start: 07-27-2023 End: 07-27-2023 ambulatory ARMANI MAY DO Facility:A Start: 07-13-2023 End: 07-13-2023 ambulatory ARMANI MAY DO Facility:A Start: 06-29-2023 End: 06-29-2023 ambulatory ARMANI MAY DO Facility:A Start: 06-22-2023 End: 06-22-2023 ambulatory KELLIE VALDEZ DO Facility:A Start: 06-12-2023 End: 06-12-2023 Emergency department patient visit KELLIE CABALLERO DO Facility:A Start: 05-01-2023 End: 05-01-[address] Kellie Caballero Work Phone: [facility] Work Phone: Start: 05-01-2023 End: 05-01-[address] [facility] Start: 05-01-2023 End: 05-01-2023 Emergency department patient visit KELLIE CABALLERO DO Facility:A Start: 04-10-2023 End: 04-10-2023 Emergency department patient visit DR TASNEEM HERRERA DO [facility] Start: 03-25-2023 End: 03-25-2023 Emergency department patient visit KELLIE CABALLERO DO Facility:A Start: 03-16-2023 End: 03-16-[address] Kellie Caballero Work Phone: [facility] Work Phone: Start: 03-16-2023 End: 03-16-[address] [facility] Start: 03-16-2023 End: 03-16-[address] Kellie Caballero Work Phone: [facility] Work Phone: Start: 02-22-2023 End: 02-22-2023 Emergency department patient visit ODALIS CERVANTES MD [facility] Start: 02-22-2023 End: 02-22-2023 Emergency department patient visit KELLIE CABALLERO DO Facility:A Start: 01-02-2023 End: 01-02-[address] Kellie Caballero Work Phone: [facility]-Pulmonary Medicine [facility] Work Phone: Start: 12-22-2022 End: 12-22-2022 Emergency department patient visit KELLIE CABALLERO DO Facility:A Start: 12-16-2022 End: 12-16-2022 Emergency department patient visit ALBERTO HOGAN MD Facility:A Start: 12-16-2022 End: 12-16-2022 Emergency department patient visit JAYNE WOOTEN MD [facility] Start: 11-20-2022 End: 11-20-[address] Kellie Caballero Work Phone: [facility]-P[facility] Medicine [facility] Work Phone: Start: 11-12-2022 Non-patient / Non-visit Dr. Gildardo Segura Work Phone: [facility] Start: 11-11-2022 End: 11-11-[address] Uche Segura Work Phone: [facility] Work Phone: Start: 11-11-2022 End: 11-11-[address] Uche Segura Work Phone: [facility]-Pulmonary Services/Neurology Work Phone: Start: 10-14-2022 End: 10-14-[address] Uche Segura Work Phone: [facility] Work Phone: Start: 10-14-2022 End: 10-14-[address] Uche Segura Work Phone: [facility]-Pulmonary Medicine [facility] Work Phone: Start: 05-02-2022 End: 05-02-2022 Patient encounter procedure KELLIE CABALLERO DO [facility] Start: 04-17-2022 End: 04-17-2022 Emergency department patient visit JAYNE WOOTEN MD [facility] Start: 04-17-2022 End: 04-17-2022 Emergency department patient visit JAYNE WOOTEN MD [facility] Start: 06-24-2021 End: 06-24-2021 Emergency department patient visit ZULAY ZAMAN DO [facility] Start: 10-08-2016 Ambulatory Kelly Irma Candelario Facility:[facility] Procedures Date Procedure Procedure Detail Performing Clinician None (qualifier value) [facility] Plan of Treatment Date Care Activity Detail Author Start: 10-14-2022 IgE [Units/volume] i n Serum or Plasma [facility] Start: 10-14-2022 [facility] Measurement of Asper gillus flavus antibody [facility] Measurement of Asper gillus fumigatus antibody [facility] Measurement of Asper gillus niger antibody [facility] Measurement of respi ratory function [facility] Immunizations Immunization Date Immunization Notes Care Provider Fa cili 01-15-2023 influenza, injectabl e, quadrivalent, contains preservative; Translations: [Fluarix PF Quadrivalent ] ODALIS CERVANTES MD [facility] 08-22-2020 SARS-CoV-2 (COVID-19 ) mRNA-5088 vaccine JAYNE WOOTEN MD [facility] 07-25-2020 SARS-CoV-2 (COVID-19 ) mRNA-1273 vaccine JAYNE WOOTEN MD [facility] 04-06-2020 SARS-CoV-2 (COVID-19 ) mRNA-1273 vaccine JAYNE WOOTEN MD [facility] 03-07-2019 influenza virus vaccine, unspecified formulation JAYNE WOOTEN MD [facility] 04-30-1990 measles/mumps/rubell a virus vaccine JAYNE WOOTEN MD [facility] Payers Date Payer Category Payer Self-pay 2022 Unknown [id number] 2016 Unknown [id number] 1989 Unknown [id number] 2.16.8 40.1.945118.3.579.2.627 1989 Unknown [id number] 2.16.8 40.1.174076.3.579.2.627 1989 Unknown [id number] 2.16.8 40.1.965746.3.579.2.627 1989 Unknown [id number] 2.16.8 40.1.986863.3.579.2.627 1989 Unknown [id number] 2.16.8 40.1.950655.3.579.2.627 1989 Unknown [id number] 2.16.8 40.1.440923.3.579.2.627 1989 Unknown [id number] 2.16.8 40.1.197819.3.579.2.627 1989 Unknown [id number] 2.16.8 40.1.143121.3.579.2.627 1989 Unknown [id number] 2.16.8 40.1.898731.3.579.2.627 1989 Unknown [id number] 2.16.8 40.1.074792.3.579.2.627 1989 Unknown [id number] 2.16.8 40.1.935978.3.579.2.627 1989 Unknown [id number] 2.16.8 40.1.784914.3.579.2.627 1989 Unknown [id number] 2.16.8 40.1.668591.3.579.2.627 1989 Unknown [id number] 2.16.8 40.1.124021.3.579.2.627 1989 Unknown [id number] 2.16.8 40.1.845931.3.579.2.627 1989 Unknown [id number] 2.16.8 40.1.842262.3.579.2.627 1989 Unknown [id number] 2.16.8 40.1.281545.3.579.2.627 1989 Unknown [id number] 2.16.8 40.1.174737.3.579.2.627 1989 Unknown [id number] 2.16.8 40.1.388175.3.579.2.627 Unknown [id number] 2.16.8 40.1.287140.3.579.2.462 Unknown [id number] 2.16.8 40.1.557236.3.579.2.462 Unknown [id number] 2.16.8 40.1.077500.3.579.2.462 Unknown [id number] 2.16.8 40.1.957328.3.579.2.462 Unknown [id number] 2.16.8 40.1.095988.3.579.2.462 Unknown [id number] 2.16.8 40.1.518345.3.579.2.462 Unknown [id number] 2.16.8 40.1.932672.3.579.2.462 Unknown [id number] 2.16.8 40.1.781943.3.579.2.462 Unknown [id number] 2.16.8 40.1.747314.3.579.2.462 Unknown [id number] 2.16.8 40.1.169451.3.579.2.462 Unknown [id number] 2.16.8 40.1.264198.3.579.2.462 Social History Date Type Detail Facility Start: 06-18-2021 End: 12-30-2021 Light tobacco smoker (finding) [facility] At [facility] Start: 10-14-2022 End: 03-16-2023 Tobacco smoking status NHIS Unknown if ever smoked [facility] Start: 1990 Sex Assigned At Male [facility] Start: 09-16-2022 Tobacco smoking status Ex-smoker (fi nding) [facility] Start: 03-16-2023 Tobacco smoking stat us VTIS Smokes tobacco daily (finding) [facility] Start: 07-02-2024 Sex Male (finding) [facility] Functional Status Date Assessment Result Facility 04-10-2023 Functional Status Independent [facility] 02-22-2023 Functional Status Independent [facility] 02-22-2023 Functional Status Standard Safet y ID band on, Call device within reach, Bed in low position, Wheels locked, Phone within reach, personal items within reach, Bedside Cart Locked, Safety level maintained, Hazards removed from floor [facility] Mental Status Date Assessment Result Facility 07-01-2024 Cognitive function Awake;Alert;A ppropriate;Follow s Commands [facility] Work Phone: 06-03-2024 Cognitive function Voice/Name [facility] Work Phone: 05-06-2024 Cognitive function Awake;Alert;A ppropriate;Follow s Commands [facility] Work Phone: 04-01-2024 Cognitive function Awake;Alert;A ppropriate;Follow s Commands [facility] Work Phone: 03-04-2024 Cognitive function Level Of Cons ciousness Awake;Alert;Appropriate [facility] Work Phone: 05-01-2023 Cognitive function Awake;Alert;A ppropriate;Follow s Commands [facility] Work Phone: 04-10-2023 Mental Status Orientation Oriented x 4 [facility] 04-10-2023 [facility] 03-16-2023 Cognitive function Voice/Name [facility] Work Phone: 02-22-2023 Mental Status Orientation Oriented x 4 [facility] 02-22-2023 [facility] Clinical Notes 06-24-2021 to 06-10-2024 Note Date & Type Note Facility 06-10-2024 Evaluation note Diagnosis Onset Date Resolution Oral thrush acute June 10 8:03am Allergic asthma chronic June 8:03am Bipolar 1 disorder chronic June 10, 2024 8:03am [facility] Work Phone: [phone]) 925-820901-05-2024 Hospital Discharge instructions Patient Education 04/10/2023 16:28:43 COVID-19 Prevent the Spread of COVID-19 If You Are Sick (08/23/2019) (CUSTOM) Prevent the Spread of COVID-19 If You Are Sick Accessible version: https://www.cdc.gov/coronavirus/2019-ncov/um-nmj-xjm-sick/bwwjw-bshk-vvts.html If you are sick with COVID-19 or [...] need to be around other people or animalsin or outside of the home, wear a cloth face covering. See COVID-19 and Animals if you have questions about pets: https://www.cdc.gov/coronavirus/2019ncov/faq.html#TNNWL79pyzklsp Monitor your symptoms. Common symptoms of COVID-19 [...] and need to call 911, notify the card game operator that you have or think you [...] your coughs and sneezes in some other way.Try to stay at least 6 feet away from other people. This will help protect the people around you. Note: During the COVID-19 pandemic, medical grade facemasks are reserved for healthcare workers andsome first responders. You may need to make [...] clean your hands with an alcohol-based hand data collection interviewer that contains at least 60% alcohol. Clean your hands often. Wash your hands often with soap and water for at least 20 seconds. This is especially important after blowing your nose, coughing, or sneezing; going to the bathroom; and before eating or preparing food. Use hand data collection interviewer if soap and water are not available. Use an alcohol-based hand data collection interviewer with atleast 60% alcohol, covering all surfaces of your [...] and water or put them in the rn observation. Clean all high-touch surfaces everyday. Clean and [...] or body fluids on them. Use household unit operator and disinfectants. Clean the area or item [...] days of no fever without the use ofmedicine that reduces fevers) AND other symptoms have [...] 04/10/2023 13:17:02 With:KELLIE CABALLERO DO Address: [address] [place] [phone] When:2-4 days [facility] 01-05-2024 Note Discharge Instructions Thank you for allowing [facility] to assist you with your healthcare needs. The following is importantdischarge information regarding your hospital visit. Diagnosis from Today's Visit COVID What to Do Next Instructions from Your Care Team No qualifying data available. Post Acute Orders No qualifying data available. You Need to Schedule the Following Appointments Follow Up with KELLIE CABALLERO DO When Within 2-4 days Where: [address] [place], [place] [phone] Allergies [facility] Medications Please ask your primary doctor or pharmacist before taking any other medication not listed, including over the counter drugs, herbal medications, vitamins and or supplements as they may interact withyour home medications. What How Much When Why [...] Duration: 30 Days Unchanged dextromethorphan-promethazine (dextromethorphan-promethazine 15 mg- 6.25 mg/ 5 mL oral syrup) 5 Milliliter [...] day Unchanged predniSONE (prednisone 10mg tab (TAPER)) 55-10-41-10-44-26-5mg x 2days/dose by mouth Once a day Duration: 14 Days 7V5oijf,6B2nfzt,3R7ccwk,8I5vgvk,6B9krfr,4W7qmzo, 0.5X2 days. Unchanged sildenafil (sildenafil 50 mg [...] pneumonia, and infections of the ear, nose, throat,skin, or urinary tract. Amoxicillin is also sometimes used together with another antibiotic called clarithromycin (Biaxin) to treat stomach ulcers caused by Helicobacter pylori infection. This combination is sometimes used with a stomach acid public health dietitian called lansoprazole (Prevacid). Amoxicillin may also be [...] effective. Ask your doctor about using a non-hormonalbirth control (condom, diaphragm, cervical cap, or contraceptive [...] may report side effects to FDA at [phone]-NLE-8361. What other drugs will affect amoxicillin? Tell your doctor about all your other medicines, especially: any other antibiotics; allopurinol; probenecid; or a blood thinner--warfarin, Coumadin, Jantoven. This list is not complete. Other drugs may affect amoxicillin, including prescription and vpjk-hto-uyjnbfq medicines, vitamins, and herbal products. Not all [...] to ensure that the information provided by [employer]. ('[employer]') is accurate, up-to-date, and complete, but no guarantee is made to that effect. Drug information contained herein may be time sensitive. [employer] information has been compiled for use by healthcare practitioners and consumers in the [place] and therefore [employer] does not warrant that uses outside of the [place] are appropriate, unless specifically indicated otherwise. [employer] drug information does not endorse drugs, diagnose patients or recommend therapy. [employer] drug information isan informational resource designed to assist licensed healthcare practitioners in caring for their p atients and/or to serve consumers viewing this service as a supplement to, and not a substitute for, the expertise, skill, knowledge and judgment of healthcare practitioners. The absence of a warningfor a given drug or drug combination in no way should be construed to indicate that the drug or drug combination is safe, effective or appropriate for any given patient. [facility] does not assume any responsibility for any aspect of healthcare administered with the aid of information [facility] provides. The information contained herein is not intended to cover all possible uses, directions, precautions, warnings, drug interactions, allergic reactions, or adverse effects. If you have questions about the drugs you are taking, check with your doctor, nurse or pharmacist. Copyright 5763-0996 [facility] [employer]. Version: 10.. Revision Date: 03/01/2019. albuterol inhalation [...] having uncontrolled asthma during may increase the riskof premature , low weight, or eclampsia (dangerously [...] each use. You do not need to shakeProAir RespiClick before using. Do not try to [...] may report side effects to FDA at 0-858-SJO-0857. What other drugs will affect albuterol inhalation? [...] may affect albuterol inhalation, including prescription and rpoi-utl-gyfnhyl medicines, vitamins, and herbal products. Not all [...] to ensure that the information provided by [employer] ('[employer]') is accurate, up-to-date, and complete, but no guarantee is made to that effect. Drug information contained herein may be time sensitive. [employer] information has been compiled for use by healthcare practitioners and consumers in the [place] and therefore [employer] does not warrant that uses outside of the [place] are appropriate, unless specifically indicated otherwise. [employer] drug information does not endorse drugs, diagnose patients or recommend therapy. [employer] drug information isan informational resource designed to assist licensed healthcare practitioners in caring for their p atients and/or to serve consumers viewing this service as a supplement to, and not a substitute for, the expertise, skill, knowledge and judgment of healthcare practitioners. The absence of a warningfor a given drug or drug combination in no way should be construed to indicate that the drug or drug combination is safe, effective or appropriate for any given patient. [employer] does not assume any responsibility for any aspect of healthcare administered with the aid of information [employer] provides. The information contained herein is not intended to cover all possible uses, directions, precautions, warnings, drug interactions, allergic reactions, or adverse effects. If you have questions about the drugs you are taking, check with your doctor, nurse or pharmacist. Copyright 1462-6932 [employer]. Version: 10.. Revision Date: 02/22/2020. Education Materials Prevent the Spread of COVID-19 If You Are Sick Accessible version: https://www.cdc.gov/coronavirus/2019-ncov/ig-hls-wuc-sick/aqtmt-ithc-jukv.html If you are sick with COVID-19 or [...] need to be around other people or animalsin or outside of the home, wear a cloth face covering. See COVID-19 and Animals if you have questions about pets: https://www.cdc.gov/coronavirus/2019ncov/faq.html#HXIVR66jgcwijz Monitor your symptoms. Common symptoms of COVID-19 [...] and need to call 911, notify the card game operator that you have or think you [...] your coughs and sneezes in some other way.Try to stay at least 6 feet away from other people. This will help protect the people around you. Note: During the COVID-19 pandemic, medical grade facemasks are reserved for healthcare workers andsome first responders. You may need to make [...] clean your hands with an alcohol-based hand data collection interviewer that contains at least 60% alcohol. Clean your hands often. Wash your hands often with soap and water for at least 20 seconds. This is especially important after blowing your nose, coughing, or sneezing; going to the bathroom; and before eating or preparing food. Use hand data collection interviewer if soap and water are not available. Use an alcohol-based hand data collection interviewer with atleast 60% alcohol, covering all surfaces of your [...] and water or put them in the rn observation. Clean all high-touch surfaces everyday. Clean and [...] or body fluids on them. Use household unit operator and disinfectants. Clean the area or item [...] days of no fever without the use ofmedicine that reduces fevers) AND other symptoms have [...] to receive it can visit one of [facility] vaccine clinics. There are many vaccine clinic locations within the [facility]. For locations and available times, please visit www.gettheshot.coronavirus.[place].gov/. It is important to note that some COVID mobile vaccine clinics are held outdoors and may be canceled in rainy or stormy conditions. To learn more about pediatric vaccinations (ages 5-11), we invite you to visit the [facility] webpage. https://www.[facility].org/pages/3850-Wkokr-Jiptsfchffe-Ggqrlwvzer-Qjuff-Ziv stions.htmlTo learn more about the COVID-19 vaccine, we invite you to visit the CDC website for a list of frequently asked questions. https://www.cdc.gov/coronavirus/2019-ncov/vaccines/faq.html [facility] Patient Portal Access Instructions: Stay connected with your healthcare team and access your personal medical information anytime with the [facility] Patient Portal. If you would like a full copy of your medical records please contact the [facility] Medical Records Department Thursday through Thursday between 8a.m. and 4:30p.m. Please follow the directions below to access the portal: 1.Access the email account you provided upon registration to the [facility].2.Look for an invitation email from [facility].3.Open the email and access the invitation link: Accept Invitation to [facility]4.Fill in the required cary to create your account. Sign into www.[employer] with your username and password that you [...] you will allow to register on the [facility] Patient Portal for access to your information. You can also access the [employer] Patient Portal on the [employer]. Simply click on Health Records under Muse and then click on the [employer] logo. HOW TO SAFELY DISPOSE OF PRESCRIPTION MEDICATIONS Please use one of the following methods to safely dispose of your unused medications. 1.Use a drug disposal kit: the drug disposal pouch allows you to safely discard your old and unuseddrugs. Ask your nurse to give you one when you are discharged.2.Visit a local take-back location: Many local pharmacies and police departments have programs that collect old and unwanted prescriptiondrugs. Call your local pharmacy or go to http://Curioos.ly/4R1Dd8t to find one close to you.3.Make use of household items: Use cat litter or old coffee grounds to dispose medications if other options arenot available. Mix your drugs with these household products, seal them in an airtight container andthrow it into the garbage. Call [facility]: [phone] to be sure your drugs can be [...] drowsiness, such as benzodiazepines, also known as benzos,including diazepam and alprazolam, muscle relaxants or sleep aids. Never sell or share prescriptionopioids. This is illegal. Store opioids in a [...] aware that I should contact my doctor. 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 Vomiting and diarrhea often go awaywithin a day or two without problems. If [...] for heart disease or after a stroke) Eybp-wtw-kmyhjas medicines for diarrhea, nausea, and vomiting are generally OK unless you have bleeding, fever, or severe abdominal pain. General care If symptoms are severe, rest at home for the next 24 hours, or until you are feeling better. Washing your hands with soap and water, or using alcohol-based hand data collection interviewer is the best way to stop the [...] too dehydrated. They have too much sugar andnot enough electrolytes and can sometimes make things [...] for others. When preparing foods, wash your handsbefore and after. Wash your hands or use alcohol-based data collection interviewer after using cutting boards, countertops, and knives that have been in contact with raw food. Dry your hands with a single use towel. Keep uncooked meats away from cooked and rhepa-mi-alx foods. Follow-up care Follow up with your [...] every 6 hours), or very dark urine [phone] [employer]. [address] [place] [address], [place] [address]. All rights reserved. This information is not intended as a substitute for professional medical care. Always follow yourhealthcare professional's instructions. Follow Up Care 02/22/2023 14:18:05 With:KELLIE CABALLERO Address: [address] [place] [address] [place] [address] [phone] Business (1) When:2-4 days Comments:Follow-up as needed if symptoms persist.Clear liquid diet, slowly advance as tolerated.Use Tylenol or Advil for pain and fever as needed.Use bovr-qrb-kribaiw antidiarrheal medicines like Imodium as needed.Use Zofran as prescribed for nausea and vomiting as needed.Return to the ED if symptoms worsen. [facility] 11-19-2023 Emergency department Discharge summary Discharge Instructions Thank you for allowing [facility] to assist you with your healthcare needs. The following is importantdischarge information regarding your hospital visit. Diagnosis from [...] for pain and fever as needed. Use ulsu-qkl-pxztdqd antidiarrheal medicines like Imodium as needed. Use Zofran as prescribed for nausea and vomiting as needed. Return to the ED if symptoms worsen. Where: 0 [facility] [place] [address]- [phone] Business (1) Allergies NKA Medications Please ask your primary doctor or pharmacist before taking any other medication not listed, including over the counter drugs, herbal medications, vitamins and or supplements as they may interact withyour home medications. What How Much When Why [...] day Unchanged predniSONE (prednisone 10mg tab (TAPER)) 07-54-60-86-01-25-5mg x 2days/dose by mouth Once a day Duration: 14 Days 4I1bvws,2T9vtfu,6Q6salc,3V7eocy,4U6vwvi,9B9bayi, 0.5X2 days. Unchanged tiotropium (Spiriva Respimat 1.25 [...] with testing. Vomiting and diarrhea often go awaywithin a day or two without problems. If [...] for heart disease or after a stroke) Aeyb-nar-gmagxbo medicines for diarrhea, nausea, and vomiting are generally OK unless you have bleeding, fever, or severe abdominal pain. General care If symptoms are severe, rest at home for the next 24 hours, or until you are feeling better. Washing your hands with soap and water, or using alcohol-based hand data collection interviewer is the best way to stop the [...] too dehydrated. They have too much sugar andnot enough electrolytes and can sometimes make things [...] for others. When preparing foods, wash your handsbefore and after. Wash your hands or use alcohol-based data collection interviewer after using cutting boards, countertops, and knives that have been in contact with raw food. Dry your hands with a single use towel. Keep uncooked meats away from cooked and zojoh-sv-fqr foods. Follow-up care Follow up with your [...] every 6 hours), or very dark urine [phone] [employer]. [address] [place] [address]. All rights reserved. This information is not intended as a substitute for professional medical care. Always follow yourhealthcare professional's instructions. Additional Information VACCINATE! IT SAVES LIVES! Members of the community who have not yet received the COVID-19 vaccine and would like to receive it can visit one of [facility] vaccine clinics. There are many vaccine clinic locations within the [facility]. For locations and available times, please visit [email or web address] It is important to note that some COVID mobile vaccine clinics are held outdoors and may be canceled in rainy or stormy conditions. To learn more about pediatric vaccinations (ages 5-11), we invite you to visit the [facility] webpage. https://www.[facility].org/pages/2198-Tanbp-Ujdmiqjgjyb-Qfnyhggptq-Rknrx-Ruv stions.htmlTo learn more about the COVID-19 vaccine, we invite you to visit the CDC website for a list of frequently asked questions. https://www.cdc.gov/coronavirus/2019-ncov/vaccines/faq.html [facility] Patient Portal Access Instructions: Stay connected with your healthcare team and access your personal medical information anytime with the [facility] Patient Portal. If you would like a full copy of your medical records please contact the [facility] Medical Records Department Thursday through Thursday between 8a.m. and 4:30p.m. Please follow the directions below to access the portal: 1.Access the email account you provided upon registration to the [facility].2.Look for an invitation email from [facility].3.Open the email and access the invitation link: Accept Invitation to [facility]4.Fill in the required cary to create your account. Sign into www.[employer] with your username and password that you [...] you will allow to register on the [facility] Patient Portal for access to your information. You can also access the [facility] Patient Portal on the [employer]. Simply click on Health Records under [employer] and then click on the [employer] logo. HOW TO SAFELY DISPOSE OF PRESCRIPTION MEDICATIONS Please use one of the following methods to safely dispose of your unused medications. 1.Use a drug disposal kit: the drug disposal pouch allows you to safely discard your old and unuseddrugs. Ask your nurse to give you one when you are discharged.2.Visit a local take-back location: Many local pharmacies and police departments have programs that collect old and unwanted prescriptiondrugs. Call your local pharmacy or go to http://bit.[employer]/7Q1Jg8n to find one close to you.3.Make use of household items: Use cat litter or old coffee grounds to dispose medications if other options arenot available. Mix your drugs with these household products, seal them in an airtight container andthrow it into the garbage. Call [facility]: [phone] to be sure your drugs can be [...] drowsiness, such as benzodiazepines, also known as benzos,including diazepam and alprazolam, muscle relaxants or sleep aids. Never sell or share prescriptionopioids. This is illegal. Store opioids in a [...] aware that I should contact my doctor. 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 Signature: Date/Time: Relationship to Patient: Witness Name/Signature: Date/Time: [id number] NoteSINUS RHYTHM BORDERLINE T WAVE ABNORMALITIES Electronic Signature: ODALIS CERVANTES MD 02/22/2023 18:37:24[facility] 08-09-2023 Procedure [facility] 04-17-2022 Note ORIGINAL HISTORY: Short of [...] Sign Date: 04/17/2022 9:16:06 AM Ordering Provider: KERVIN [facility]01-12-2023 Note ORIGINAL HISTORY: Short of breath, cough, [...] Sign Date: 04/17/2022 9:16:06 AM Ordering Provider: [facility]03-21-2022 Hospital Discharge instructions Patient Education 06/24/2021 10:49:03 Asthma, Acute [...] and you are still in the yellow zone(50% to 80%) 15 minutes after using inhaler medicine. Call 911 Call 911 if any of the following occur Trouble walking or talking because of shortness of breath If you use a peak flow meter as part of an Asthma Action Plan and you are still in the red zone (less than 50%) 15 minutes after using inhaler medicine Lips or fingernails turning posada or blue [id number] [employer]. [address] [place] [address], [place] [address]. All rights reserved. This information is not intended as a substitute for professional medical care. Always follow yourhealthcare professional's instructions. Follow Up Care 06/24/2021 08:07:58 With:KELLIE CABALLERO DO Address: [phone] When:2-4 days [facility] evaluation + Plan note Future Appointments Appointment Date:07/24/2021 02:00:00 PM Scheduled Provider:KELLIE CABALLERO DO Location[facility] Appointment Type:PC OV Future Scheduled Tests Laboratory* Prostate Specific Antigen 06/18/21 * Urinalysis 06/18/21 * A1C Hemoglobin 06/18/21 * Complete Blood Count 06/18/21 * Lipid Profile 06/18/21 * Complete Metabolic Panel 06/18/21 [facility] evaluation + Plan note Future Appointments Appointment Date:06/23/2022 09:00:00 AM Scheduled Provider:KELLIE CABALLERO DO [facility] Type[facility]PC Wellness Annual Future Scheduled Tests Laboratory* Lipid Profile 06/29/22 * Complete Metabolic Panel 06/29/22 [facility] evaluation + Plan note Future Appointments Appointment Date:05/23/2022 11:30:00 AM Scheduled Provider:KELLIE CABALLERO DO [facility] Type:PC OV Appointment Date:06/23/2022 09:00:00 AM Scheduled Provider:KELLIE CABALLERO DO Location:[facility] Appointment Type:PC Wellness Annual Future Scheduled Tests Laboratory* Lipid Profile 06/29/22 * Complete Metabolic Panel 06/29/22 [facility] evaluation + Plan note Future Appointments Appointment Date:03/12/2023 08:00:00 AM Scheduled Provider:KELLIE CABALLERO DO Location:[facility] Appointment Type:PC OV Follow Up Future Scheduled Tests Laboratory* Lipid Profile 06/29/22 * Complete Metabolic Panel 06/29/22 [facility] evaluation + Plan note Future Appointments Appointment Date:04/16/2023 04:00:00 PM Scheduled Provider:KELLIE CABALLERO DO Location:[facility] Appointment Type:PC OV Follow Up Future Scheduled Tests Laboratory* Lipid Profile 06/29/22 * Complete Metabolic Panel 06/29/22 [facility] Evaluation note* Diagnosis Onset Date Resolution Status Asthma acute [facility] Work Phone: Evaluation note* Diagnosis Onset Date Resolution Status Bipolar 1 disorder acute Allergic asthma chronic Asthma acute [facility] Work Phone: Hospital course Narrative No data available for this section [facility] Hospital Discharge instructions No data available for this section [facility] Progress note No data available for this section [facility] Reason for referral (narrative)No reason for referral [facility] Work [facility]: Summary Purpose Family History No Family History Records Found No data available for this section No data available for this section No data available for this section No Family History Records FoundNo Family History Records FoundNo Family History Records Found Advance Directives No Advanced Directives Records FoundNo Advanced Directives Records FoundNo Advanced Directives Records FoundNo Advanced Directives Records Found Chief Complaint and Reason for Visit Chief Complaint Asthma Reason for Visit Asthma Chief Complaint Asthma SEVERE PERSISTENT ASTHMA SEVERE PERSISTENT ASTHMA Reason for Visit Asthma Chief Complaint 6 wk FU Asthma- Severe Persistent Asthma 4 M FU xolair Reason for Visit Bipolar 1 disorder Allergic asthma Asthma Chief Complaint Asthma- Severe Persi stent Asthma 4 M FU xolair xolair Reason for Visit Asthma Chief Complaint Admit Date XOLAIR March 04, 2024 8:34am XOLAIR April 01, 2024 8:42am XOLAIR May 06, 2024 1 0:08am XOLAIR June 03, 2024 8:23am 6 M FU June 10, 2024 8:03 am XOLAIR July 01, 2024 9:4 4am Reason for Visit Admit Date Oral thrush June 10, 2024 8:03 am Allergic asthma June 10, 2024 8:03 am Bipolar 1 disorder June 10, 2024 8:03 am Additional Source Comments (unrecognized sect ion and content) No Status Records FoundNo Status Records FoundNo Status Records FoundNo Status Records Found INFORMATION SOURCE (unrecogn ized section and content) DATE CREATED AUTHOR 09/24/2017 [facility] [place] DATE CREATED AUTHOR AUTHOR'S ORGANIZ ATION 11/07/2023 [facility] ([place]) DATE CREATED AUTHOR AUTHOR'S ORGANIZ ATION 01/21/2024 [facility] DATE CREATED AUTHOR AUTHOR'S ORGANIZ ATION 09/08/2024 [facility] Care Team (unrecognized sect ion and content) Care Team Personnel Name: KELLIE CABALLERO DO Position: P4 Physician - Primary Care Member Role: Primary Care Physician Address: Address: [address] [place] [address]- Name: KERVIN SALEH PAPowerC Position: ED Physician Electrical/Instrument Technician Member Role: ED PA Address: Address: [address] [place] [address] Care Team Related Persons Name: BLAIR HAMMOND Name: RAMOS CHOE Name: RENATA CHOE Care Team Personnel Name: KELLIE CABALLERO DO Position: P4 Physician - Primary Care Member Role: Primary Care Physician Address: Address: [address] [place] [address]- Care Team Related Persons Name: BLAIR HAMMOND Name: RAMOS CHOE Name: RENATA CHOE Care Team Personnel Name: KELLIE CABALLERO DO Position: P4 Physician - Primary Care Member Role: Primary Care Physician Address: Address: [address] [place] [address] Care Team Related Persons Name: BLAIR HAMMOND Name: RAMOS CHOE Name: RENATA CHOE Care Teams (unrecognized sec tion and content) Team Status: Active Member Role Status Dates Dr. Kellie Caballero DO Primary Care Provider Active Team Status: Inactive Member Role Status Dates Dr. Uche Segura MD Attending Provider Active Team Status: Inactive Member Role Status Dates Dr. Kellie Caballero DO Primary Care Provider Active Dr. Uche Segura MD Attending Provider, Referring Pr ovider Active Team Status: Active Member Role Status Dates Dr. Uche Segura MD Referring Provider, Other Provid er Active Dr. Kellie Caballero DO Primary Care Provider Active Dr. Nicolás Ross DO Attending Provider Active Team Status: Inactive Member Role Status Dates Dr. Uche Segura MD Attending Provider, Referring Pr ovider Active Dr. Kellie Caballero DO Primary Care Provider Active Team Status: Inactive Member Role Status Dates Rosanna Saunders POCKET ASSEMBLER, POCKET ASSEMBLER-C Attending Provider Active Dr. Kellie Caballero DO Primary Care Provider, Referrin g Provider Active Team Status: Inactive Member Role Status Dates Dr. Kellie Caballero DO Primary Care Provider, Referrin g Provider Active Dr. Uche Segura MD Attending Provider Active Team Status: Inactive Member Role Status Dates Dr. Kellie Caballero DO Primary Care Provider, Referrin g Provider Active Rosanna Saunders POCKET ASSEMBLER, POCKET ASSEMBLER-C Attending Provider Active Team Status: Inactive Member Role Status Dates Dr. Kellie Caballero DO Primary Care Provider Active Rosanna Saunders POCKET ASSEMBLER, POCKET ASSEMBLER-C Attending Provider, Referrin g Provider Active Team Status: Inactive Member Role Status Dates Dr. Kellie Caballero DO Primary Care Provider Active Start: March 04, 2024 End: March 04, 2024 Rosanna Saunders POCKET ASSEMBLER, POCKET ASSEMBLER-C Attending Provider Active Start: March 04, 2024 End: March 04, 2024 Rosanna Saunders POCKET ASSEMBLER, POCKET ASSEMBLER-C Referring Provider Active Start: March 04, 2024 End: March 04, 2024 Team Status: Inactive Member Role Status Dates Dr. Kellie Caballero DO Primary Care Provider Active Start: April 01, 2024 End: April 01, 2024 Rosanna Saunders POCKET ASSEMBLER, POCKET ASSEMBLER-C Attending Provider Active Start: April 01, 2024 End: April 01, 2024 Rosanna Saunders POCKET ASSEMBLER, POCKET ASSEMBLER-C Referring Provider Active Start: April 01, 2024 End: April 01, 2024 Team Status: Inactive Member Role Status Dates Dr. Kellie Caballero DO Primary Care Provider Active Start: May 06, 2024 End: May 06, 2024 Rosanna Saunders POCKET ASSEMBLER, POCKET ASSEMBLER-C Attending Provider Active Start: May 06, 2024 End: May 06, 2024 Rosanna Saunders POCKET ASSEMBLER, POCKET ASSEMBLER-C Referring Provider Active Start: May 06, 2024 End: May 06, 2024 Team Status: Inactive Member Role Status Dates Dr. Kellie Caballero DO Primary Care Provider Active Start: June 03, 2024 End: June 03, 2024 Rosanna Saunders POCKET ASSEMBLER, POCKET ASSEMBLER-C Attending Provider Active Start: June 03, 2024 End: June 03, 2024 Rosanna Saunders POCKET ASSEMBLER, POCKET ASSEMBLER-C Referring Provider Active Start: June 03, 2024 End: June 03, 2024 Team Status: Inactive Member Role Status Dates Dr. Kellie Caballero DO Primary Care Provider Active Start: June 10, 2024 End: June 10, 2024 Dr. Kellie Caballero DO Referring Provider Active Start: June 10, 2024 End: June 10, 2024 Rosanna Saunders NP POCKET ASSEMBLER-C Attending Provider Active Start: June 10, 2024 End: June 10, 2024 Team Status: Inactive Member Role Status Dates Dr. Kellie Caballero DO Primary Care Provider Active Start: July 01, 2024 End: July 01, 2024 Rosanna Saunders NP POCKET ASSEMBLER-C Attending Provider Active Start: July 01, 2024 End: July 01, 2024 Rosanna Saunders NP POCKET ASSEMBLER-C Referring Provider Active Start: July 01, 2024 End: July 01, 2024 Goals (unrecognized section and content) Goals may be documented in a n alternate section FOR RECORDS PERTAINING TO PATIENTS WHO ARE [...] BE BASED ON THE PRIMARY CLINICAL RECORDS. [employer] [facility]. provides no warranty or guarantee of the accuracy or completeness of information in this document.
== END 2024-09-09 23:59 | disposition home or self-care (01) ==
LOC: MEDOUTP 09:55
PROVIDERS: PCP Student in an Organized Health Care Education/Training Program; Referring Provider Nurse Practitioner Acute Care; Visit Provider Nurse Practitioner Acute Care
DX: J45.50 Severe persistent asthma, uncomplicated (principal)
CPT/HCPCS: 96372; J2357

== ENCOUNTER 2024-10-21 10:10 | Outpatient (CLI) | payer MEDICAID, SELFPAY ==
[2024-10-21 10:19] VITALS: BP 108/63; PULSE 58; RESP 16; TEMP 35.6; O2SAT 97
--- OUTSIDE RECORDS SUMMARY | 2024-10-21 12:41 | XMS RPT_ITS | CCD ---
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 Uche Segura Attending Provider [phone] Uche Segura Referring Provider [phone] Uche Segura Other Provider Dr. Kellie Caballero Primary Care Provider [phone] Dr. Nicolás Ross Attending Provider [phone] Nicky HOT CAR CHARGER, HOT CAR CHARGER-C Rosanna Attending Provider Dr. Kellie Caballero Primary Care Provider [phone] Dr. Kellie Caballero Referring Provider [phone] Dr. Uche Segura Attending Provider [phone] Kellie Caballero Primary Care Provider Dr. Kellie Caballero Referring Provider Nicky HOT CAR CHARGER, HOT CAR CHARGER-C Rosanna Attending Provider ALBERTO HOGAN MD Attending Unavailable KELLIE CABALLERO DO Primary Care Unavailable KELLIE CABALLERO DO Primary Care Unavailable ANA MCCARTY Attending Unavaila ble KELLIE CABALLERO DO Primary Care Unavailable ODALIS CERVANTES MD Attending Unavailable KELLIE CABALLERO DO Primary Care Unavailable ANA MCCARTY Attending Unavaila ble ARMANI MAY DO Attending Unavail able HALKO DO, KELLIE Primary [...] HALKO DO, KELLIE Primary Care Unavailable [employer]ED[employer] INDUSTRIAL AUTOMATION SPECIALIST-CONTROL AND RECOVERY COMBAT RESCUE, ANA [place] Attending Unavaila ble MCKEEN DO, ARMANI NEWTON Attending Unavail able HALKO DO, KELLIE Primary Care Unavailable HALKO DO, KELLIE Primary Care Unavailable [employer] INDUSTRIAL AUTOMATION SPECIALIST-CONTROL AND RECOVERY COMBAT RESCUE, ANA [place] Attending Unavaila ble HALKO DO, KELLIE Primary Care Unavailable JAYNE WOTOEN MD Attending Unavailable HALKO DO, KELLIE Primary Care Unavailable KYLEE SIMON, BEBO Trevino Attending Unavailab le HALKO DO, KELLIE Primary Care Unavailable CHETAN CAMEJO MD Attending Unavailable Ada INIGUEZ, Dr. Chandler Primary Care Provider [phone] Nicky HOT CAR CHARGER-C, Rosanna Attending Provider Nicky HOT CAR CHARGER-C, Rosanna Referring Provider Ada INIGUEZ, Dr. Chandler Referring Provider [phone] Ada INIGUEZ, Dr. Chandler Primary Care Provider Saunders HOT CAR CHARGER-C, Rosanna Attending Provider Nicky HOT CAR CHARGER-C, Rosanna Referring Provider DYLANKO DO, KELLIE Primary Care Unavailable IRVIN PRIEST MD Attending Unavailable CHETAN CAMEJO MD Attending Unavailable HALKO DO, KELLIE Primary Care Unavailable CHETAN CAMEJO MD Attending Unavailable HALKO DO, EKLLIE Primary Care Unavailable Saunders HOT CAR CHARGER, Rosanna Attending Unavailable Saunders HOT CAR CHARGER, Rosanna Referring Unavailable Halko, Kellie Primary Care Unavailable Saunders HOT CAR CHARGER, Rosanna Attending Unavailable Saunders HOT CAR CHARGER, Rosanna Referring Unavailable Halko, Kellie Primary Care Unavailable Saunders HOT CAR CHARGER, Rosanna Attending Unavailable Saunders HOT CAR CHARGER, Rosanna Referring Unavailable Halko, Kellie Primary Care Unavailable Saunders HOT CAR CHARGER, Rosanna Attending Unavailable Saunders HOT CAR CHARGER, Rosanna Referring Unavailable Halko, Kellie Primary Care Unavailable Saunders HOT CAR CHARGER, Rosanna Attending Unavailable Saunders HOT CAR CHARGER, Rosanna Referring Unavailable Haltao Kellie Primary Care Unavailable Saunders HOT CAR CHARGER, Rosanna Attending Unavailable Saunders HOT CAR CHARGER, Rosanna Referring Unavailable Ada, Kellie Primary Care Unavailable Saunders HOT CAR CHARGER, Rosanna Attending Unavailable Ada, Kellie Referring Unavailable Ada, Kellie Primary Care Unavailable Saunders HOT CAR CHARGER, Rosanna Attending Unavailable Ada, Kellie Referring Unavailable Ada, Kellie Primary Care Unavailable Saunders HOT CAR CHARGER, Rosanna Attending Unavailable Saunders HOT CAR CHARGER, Rosanna Referring Unavailable Haltao, Kellie Primary Care Unavailable Saunders HOT CAR CHARGER, Rosanna Attending Unavailable Saunders HOT CAR CHARGER, Rosanna Referring [facility]available [facility] Primary Care Unavailable Saunders HOT CAR CHARGER, Rosanna Attending Unavailable Saunders HOT CAR CHARGER, Rosanna Referring Unavailable [facility] Primary Care Unavailable Saunders HOT CAR CHARGER, Rosanna Attending Unavailable Saunders HOT CAR CHARGER, Rosanna Referring Unavailable [facility] Primary Care Unavailable Medications Current Medications Medication Drug Class(es) [...] / ipratropium bromide 0.167 mg/ml inhalation solution (16 sources) Anticholinergic, beta2-Adrenergic Agonist Start: 10-03-2022 End: [...] (Airsup ra) 90-80 mcg/actuation HFA aerosol inhaler (4 sources) Start: 04-25-2024 Albuterol-[place] sonide (Airsupra) 90-80 mcg/actuation HFA aerosol inhaler [...] Status: Ordered ARIPiprazole 5 mg oral tablet (2 sources) Atypical Antipsychotic Start: 01-29-2024 take 1 tablet [...] Start Date: 01/03/19 Status: Ordered Budesonide-Formote rol (10 sources) Corticosteroid, beta2-Adrenergic Agonist Start: 03-16-2023 Budesonide-Formot [...] mg / naloxone 2 mg sublingual film (2 sources) Partial Opioid Agonist, Opioid Antagonist Start: 03-04-2024 Buprenorphine-Naloxone (Suboxone) 8-2 mg film Active 1 NMA SL TWICE A DAY March 04, 2024 1:00am cyclobenzaprine hydrochloride 10 mg oral tablet (10 sources) Muscle Relaxant Start: 09-16-2022 End: 04-15-2023 [...] mg/ml oral solution (1 source) Phenothiazine, Uncompetitive E-dwyeci-Y-aspartate Receptor Antagonist, Sigma-1 Agonist Start: 04-10-2023 End: [...] 1 EA, 0 Refill(s), Pharmacy: [facility], 175.3, cm, 09/16/22 10:43:00 EDT, Height, 73.2, [...] supplies, # 1 EA, 0 Refill(s), Pharmacy: [facility], cm, 06/18/21 13:58:00 EDT, Height, 66.5 [...] # 3 EA, 0 Refill(s), Pharmacy: [id number], 175, cm, 06/18/21 13:58:00 EDT, Height, kg, 06/18/21 13:58:00 EDT, Dosing Weight Start Date: 06/18/21 Stop Date: 09/16/21 Status: Ordered emollients (Eucerin Cream) Eusebio serna (3 sources) Start: 01-15-2023 emollients (Eu cerin Cream) Cream Apply 1 ken, Topical, BID, PRN as needed for dry skin, # 454 gram(s), 1 Refill(s), Pharmacy: [id number], Cream, 175.3, cm, 01/15/23 14:25:00 EDT, Height, 76.9, kg, 01/15/23 14:25:00 EDT, Dosing Weight Start Date: 01/15/23 Status: Ordered Start: 11-03-2022 emollients (Eu cerin Cream) Cream Apply 1 ken, Topical, BID, PRN as needed for dry skin, # 454 gram(s), 1 Refill(s), Pharmacy: [id number], Cream, 175.3, cm, 09/16/22 10:43:00 EDT, Height, 72.5, kg, 09/16/22 10:43:00 EDT, Dosing Weight Start Date: 11/03/22 Status: Ordered fluconazole 100 mg oral tablet (4 sources) Azole Antifungal Start: 06-10-2024 take 1 tablet by mouth once daily Fluconazole 100 mg tablet Active 100 mg PO daily June 10, 2024 1:00am Start: 12-11-2023 End: 03-04-2024 take 1 tablet by mouth once daily Fluconazole 100 mg tablet Discontinued 100 mg PO daily December 11, 2023 12:00am March 04, 2024 9:55am gabapentin 300 mg oral capsule (10 sources) Anti-epileptic Agent Start: 09-16-2022 End: 04-15-2023 take 1 capsule by mouth three times daily Gabapentin 300 mg capsule Active 300 mg PO THREE TIMES A DAY October 03, 2022 12:00am Start: 05-02-2022 gabapentin 300 mg oral capsule Dose : 300 mg = 1 cap(s), Oral, TID, to fill on or after 05/02/22, # 90 cap(s), 0 Refill(s), Pharmacy: [id number], Low back pain with sciatica, 175, cm, 05/02/22 10:56:00 EST, Height, 78.4 Start Date: 05/02/22 Status: Ordered 1 ml galcanezumab-gnlm 120 mg/ml auto-injector (6 sources) Start: 01-15-2023 Galcanezumab-Gnlm (Emgality Pen) 120 mg/mL pen injector Active 120 mg SC EVERY MONTH March 16, 2023 1:00am montelukast 10 mg oral tablet (12 sources) Leukotriene Receptor Antagonist Start: 09-16-2022 End: 07-14-2023 take 1 tablet by mouth once daily Montelukast 10 mg tablet Active 10 mg PO DAILY October 03, 2022 12:00am Start: 12-30-2021 End: 06-28-2022 montelukast 10 mg oral table t Dose : 10 mg = 1 tab(s), Oral, qDay, # 90 tab(s), 1 Refill(s), Pharmacy: [facility], 175, cm, 12/30/21 13:32:00 EDT, Height Start Date: 12/30/21 Stop Date: 06/28/22 Status: Ordered 1 ml omalizumab 150 mg/ml prefilled syringe (4 sources) Anti-IgE Start: 11-20-2022 Omalizumab (Xo lair) 150 mg/mL syringe Active 150 mg SC every 4 weeks November 20, 2022 12:00am OXcarbazepine 600 mg oral tablet (13 sources) Anti-epileptic Agent Start: 10-03-2022 take 1 [...] Status: Ordered sildenafil 50 mg oral tablet (5 sources) Phosphodiesterase 5 Inhibitor Start: 03-02-2023 End: 04-01-2023 take 1 tablet by mouth every twenty-four hours as needed Sildenafil 50 mg tablet Active 50 mg PO Q24H as needed for sexual activity March 16, 2023 1:00am SUMAtriptan 100 mg oral tablet (4 sources) Serotonin-1b and Serotonin-1d Receptor Agonist Start: [...] Date: 09/08/22 Status: Ordered 60 actuat tiotropium 0.95161 mg/actuat inhalation spray (12 sources) Anticholinergic Start: 01-15-2023 End: 07-14-2023 take [...] ug by inhalation every twenty-four hours Tiotropium [place] (Spiriva Respimat) 1.25 mcg/actuation mist Active 2 NMA INHALATION Q24H 4 March 16, 2023 9:16am Start: 10-14-2022 End: 03-16-2023 take 1 puff(s) by inhalation every twenty-four hours Tiotropium [place] (Spiriva Respimat) 1.25 mcg/actuation mist Active 2 PUFF INHALATION Q24H 4 March 16, 2023 8:16am divalproex sodium 500 mg delayed release oral tablet (13 sources) Mood Stabilizer, Anti-epileptic Agent Start: 06-18-2021 take 1 tablet by mouth twice daily Divalproex (Depakote) 500 mg tablet,delayed release (DR/EC) Active 500 mg PO TWICE A DAY October 03, 2022 12:00am Completed/Discontinued Medications Medication Drug Class(es) Dates Sig (Normalized) Sig (Original) [id number] 200 actuat albuterol 0.09 mg/actuat metered dose [...] Status: Ordered azithromycin 250 mg oral tablet (2 sources) Macrolide Antimicrobial Start: 06-10-2024 End: 06-15-2024 take 2-5 tablets by mouth once daily Azithromycin 250 mg tablet Discontinued 0 PO .COMPLEX 6 5 June 10, 2024 1:00am June 14, 2024 12:00am June 15, 2024 12:11am take 500 mg today (day 1), then 250 mg for 4 days (days 2-5) PO 1 ml erenumab-aooe 70 mg/ml auto-injector (12 sources) Start: 10-03-2022 End: 03-16-2023 Erenumab-Aooe Discontinued 70 MG SC EVERY MONTH October 02, 2022 11:00pm March 16, 2023 8:03am Start: 06-18-2021 End: 03-16-2023 Erenumab-Aooe 70 mg/mL auto- injector Discontinued 70 mg SC EVERY MONTH October 03, 2022 12:00am March 16, 2023 9:03am meloxicam 15 mg oral tablet (9 sources) Nonsteroidal Anti-inflammatory Drug Start: 09-16-2022 End: 07-14-2023 take 1 tablet by mouth once daily Meloxicam 15 mg tablet Discontinued 15 mg PO DAILY October 03, 2022 12:00am March 16, 2023 9:04am ondansetron 4 mg oral tablet (5 sources) Serotonin-3 Receptor Antagonist Start: 03-16-2023 End: [...] Status: Ordered predniSONE 20 mg oral tablet (20 sources) Start: 12-11-2023 End: 03-04-2024 take 3 tablets by mouth once daily at mealtime Prednisone 20 mg tablet Discontinued 60 mg PO daily December 11, 2023 12:00am March 04, 2024 9:56am On Hold: Ordered administer with food or milk Start: 04-10-2023 End: 04-24-2023 prednisone 10mg tab (TAPER) 62-93-90-96-07-55-5mg x 2days/dose, Oral, qDay, 0Q3ytxp,7Z7ygsp,5C5oaye,3X7zubo,2C7mbmr,1J2kmgx, 0.5X2 days., # 43 tab(s), 0 Refill(s), [...] 01-15-2023 End: 01-29-2023 prednisone 10mg tab (TAPER) 01-46-26-28-54-35-5mg x 2days/dose, Oral, qDay, 1D5piww,7F1vurs,6Q2swuu,3R8voeq,6O9dvlx,8C1fsxf, 0.5X2 days., # 43 tab(s), 0 Refill(s), [...] 09-16-2022 End: 09-30-2022 prednisone 10mg tab (TAPER) 12-24-66-78-12-94-5mg x 2days/dose, Oral, qDay, 3D5rjbq,3L0ttfu,4W3vevo,8Q9pbes,2O8zctq,8E5ulgl, 0.5X2 days., # 43 tab(s), 0 Refill(s), Pharmacy: [id number], 175.3, cm, 09/16/22 10:43:00 EDT, [...] 02-26-2022 End: 03-12-2022 prednisone 10mg tab (TAPER) 11-80-86-68-27-86-5mg x 2days/dose, Oral, qDay, 4F8lngm,5B0zeby,4A4kafz,7P1jzlo,7P2mixb,0C3yaaz, X2 days., # 43 tab(s), 0 Refill(s) Start Date: 02/26/22 Stop Date: 03/12/22 Status: Ordered Problems Active Problems Problem Classification Problem Date Documented Da te Episodic/Chronic Allergic reactions (6 sources) 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-2021 Episodic Asthma (20 sources) Exacerbation of asthma; Translations: [Unspecified asthma with (acute) exacerbation] Onset: 06-24-2021 Chronic Disorders of lipid metabolism (12 sources) Hyperlipidemia; Translations: [Hyperlipidemia, unspecified] 09-06-2021 Chronic Epilepsy; convulsions (6 sources) Seizure disorder; Translations: [Epilepsy, unspecified, not intractable, without status epilepticus] 10-03-2022 Chronic Epilepsy; convulsions (7 sources) Seizure disorder 06-18-2021 Episodic Genitourinary symptoms and ill-defined conditions (14 sources) Nocturia; Translations: [Polyuria] 06-18-2021 Episodic Headache; including migraine (13 sources) Migraine; Translations: [Migraine, unspecified, not intractable, without status migrainosus] 06-18-2021 Chronic Mood disorders (16 sources) Bipolar disorder; Translations: [Bipolar I disorder] 05-27-2016 Chronic Mycoses (4 sources) Candidiasis of mouth; Translations: [Candidal stomatitis] 12-11-2023 Episodic Other bone disease and musculoskeletal deformities (9 sources) Somatic dysfunction of lumbar region; Translations: [Segmental and somatic dysfunction of lumbar region] 10-03-2022 Episodic Other bone disease and musculoskeletal deformities (6 sources) Somatic dysfunction of pelvic region; Translations: [Segmental and somatic dysfunction of pelvic region] 10-03-2022 Episodic Other congenital anomalies (6 sources) Lumbarized first sacral vertebra; 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, not associated with scoliosis] 10-03-2022 Chronic Other lower respiratory disease (1 source) Hypoxia 04-10-2023 Episodic Other nutritional; endocrine; and metabolic disorders (10 sources) Excessive thirst; Translations: [Polydipsia] 06-18-2021 Episodic Other upper respiratory disease (13 sources) Seasonal allergy; Translations: [Other seasonal allergic rhinitis] 06-18-2021 Chronic Other upper respiratory disease (10 sources) Bleeding from nose; Translations: [Epistaxis] 06-18-2021 Episodic Residual codes; unclassified (6 sources) Chews tobacco ; Translations: [Tobacco use] 10-03-2022 Episodic Screening and history of mental health and substance abuse codes (4 sources) Ex-smoker 06-18-2021 Episodic Comment on above: quit 12/2021 Spondylosis; intervertebral disc disorders; other back problems (9 sources) Degeneration of intervertebral disc; Translations: [Degeneration of intervertebral disc] 10-03-2022 Chronic Spondylosis; intervertebral disc disorders; other back problems (7 sources) Lumbago with sciatica; Translations: [Lumbago with sciatica, unspecified side] 05-02-2022 Episodic Substance-related disorders (13 sources) Marijuana user; Translations: [Other long term care administrator (current) drug therapy] 06-18-2021 Episodic Unclassified (1 source) Unknown / UNK(Unknown) Onset: 10-08-2016 Unclassified (11 sources) Patient encounter status 06-18-2021 Unclassified (1 source) Low back pain, unspecified; Translations: [Low back pain, unspecified] Onset: 10-10-2024 Viral infection (1 source) Disease caused by 2019-nCoV 04-10-2023 Past or Other Problems Problem Classification Problem Date Documented Da te Episodic/Chronic Unclassified (1 source) RASH,BUG BITES Onset: 10-08-2016 Results Test Name Value Interpretation Reference Range Facility Pulmonary Visit Reporton Pulmonary Visit Report [facility] 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 Normal [facility] Pulmonary Visit Reporton Pulmonary Visit Report [facility] [place] [address] [place] [address] OFFICE VISIT Date of Service: 12/11/23 MR#: [id number] Acct: [id number] Name: DAHLIA CHOE Rep #: [id number] : 1990 Provider: MARVIN Saunders Age/Sex: 33/M Location: [facility] [place] Status: Signed Assessment and Plan Assessment and [...] 0RF Plan Details Follow Up: 6 Months ([facility]) HPI 9 M FU Chief Complaint: Asthma [...] air Intake Visit Reasons: 9 M FU Dredge Pipe Installer Required: No DME Vendor: n/a Accompanied by: [...] History ti (more content not included)... Normal [facility] XR FOOT MINIMUM 3 VIEWS LEFT on [...] 08/12/2023 10:51:55 AM Ordering Provider: ARMANI MAY [facility] ([place]) XR FOOT MINIMUM 3 VIEWS LEFT on [...] 07/28/2023 11:06:32 AM Ordering Provider: ARMANI MAY [facility]) XR FOOT MINIMUM 3 VIEWS LEFT ORIGINAL [...] 07/28/2023 10:30:15 AM Ordering Provider: ARMANI MAY [facility] ([place] XR CALCANEOUS MINIMUM 2 VIEW S LEFTon 07-13-2023 XR CALCANEOUS MINIMUM 2 VIEWS LEFT [...] Interpreted by: Sunny Beltran Preliminary Report By: uSnny Beltran Electronically signed By Sunny Beltran Dictated Date: 07/13/2023 3:15:04 PM Prelim Date: 07/13/2023 3:16:46 PM Sign Date: 07/13/2023 3:16:46 PM Ordering Provider: ARMANI MAY [facility] ([place] XR CALCANEOUS MINIMUM 2 VIEW S LEFTon 06-30-2023 XR CALCANEOUS MINIMUM 2 VIEWS LEFT [...] By: Heriberto Arndt MD Electronically signed By eHriberto Arndt MD Dictated Date: 06/30/2023 7:39:16 AM Prelim Date: 06/30/2023 7:40:40 AM Sign Date: 06/30/2023 7:40:40 AM Ordering Provider: ARMANI MAY [facility] ([place] XR CALCANEOUS MINIMUM 2 VIEW S LEFTon [...] fracture alignment status post casting. Interpreted by: Cristian Rivero DO Preliminary Report By: Cristian Rivero DO Electronically signed By Cristian Rivero DO Dictated Date: 06/22/2023 3:55:45 PM Prelim Date: 06/22/2023 3:56:49 PM Sign Date: 06/22/2023 3:56:49 PM Ordering Provider: KELLIE VALDEZ [facility] ([place] XR ANKLE AND FOOT 6 VIEWS LE [...] the calcaneus without significant displacement Interpreted by: Irvin Smith MD Preliminary Report By: Irvin Smith MD Electronically signed By Irvin Smith MD Dictated Date: 06/12/2023 8:04:01 PM Prelim Date: 06/12/2023 8:04:50 PM Sign Date: 06/12/2023 8:04:50 PM Ordering Provider: BEBO PICHARDO [facility] ([place] XR SPINE LUMBAR AP/LATon XR SPINE LUMBAR [...] the resident findings and interpretation. Interpreted by: Irvin Smith MD Preliminary Report By: Lizbet Renee Electronically signed By Irvin Smith MD Dictated Date: 06/12/2023 8:06:54 PM Prelim Date: 06/12/2023 8:08:25 PM Sign Date: 06/12/2023 9:50:53 PM Ordering Provider: BEBO PICHARDO Normal [facility]) STREP (POC)on 05-01-2023 Group A Streptococcus Antigen (POC) Negative Normal Negative [facility]) Comment on above: Result Comment: Grou p A streptococcus antigen screen results are not quantitative. Positive results have been reported in asymptomatic carriers of Group A Strep. Test results must be evaluated in conjunction with other clinical data. Performing Instrument - POCT IDNOW3 Normal [facility]) Perf Loc - POCT Tested at AM Normal [facility]) Comment on above: Result Comment: [facility] [address] [place], [place] [address] .GFRon 02-22-2023 GFR >60 Normal [facility] ([place]) Comment on above: Result Comment: GFR Population [...] MDW, TROPHS, LIP, CMP, GFR, MORPH #### [address] [address] GFR Non- >60 Normal [facility]) Comment on above: Result Comment: GFR Population [...] MDW, TROPHS, LIP, CMP, GFR, MORPH #### [place] [address] .MDWon 02-22-2023 Monocyte Distribution Width 23.75 High 0.00-20.00 [facility] ([place]) Comment on above: Result Comment: For adults in ED, MDW>20.0 may be associated with a higher risk of sepsis during the first 12hrs of hospital admission Performed By: #### D IFF, CBC, MDW, TROPHS, LIP, CMP, GFR, MORPH #### [place] [address] .Manual Diffon 02-22-2023 Basophil %, Manual 2.0 % Normal 0.0-2.5 [facility] ([place]) Comment on above: Performed By: #### D IFF, CBC, MDW, TROPHS, LIP, CMP, GFR, MORPH #### [place] [address] Basophil, Abs Manual 0.1 10 3/mcL Normal 0.0-0.3 [facility] ([place]) Comment on above: Performed By: #### D IFF, CBC, MDW, TROPHS, LIP, CMP, GFR, MORPH #### [place] [address] Eosinophil %, Manual 2.0 % Normal 0.0-6.0 [facility] ([place]) Comment on above: Performed By: #### D IFF, CBC, MDW, TROPHS, LIP, CMP, GFR, MORPH #### [address] [address] Eosinophil, Abs Manual 0.1 10 3/mcL Normal 0.0-0.7 [facility] ([place]) Comment on above: Performed By: #### D IFF, CBC, MDW, TROPHS, LIP, CMP, GFR, MORPH #### [address] [address] Lymphocyte %, Manual 37.0 % Normal 20.0-40.0 [facility] ([place]) Comment on above: Performed By: #### D IFF, CBC, MDW, TROPHS, LIP, CMP, GFR, MORPH #### [address] [address] Lymphocyte, Abs Manual 1.4 10 3/mcL Normal 0.9-4.3 [facility] ([place]) Comment on above: Performed By: #### D IFF, CBC, MDW, TROPHS, LIP, CMP, GFR, MORPH #### [address] [address] Monocyte %, Manual 17.0 % High 2.0-13.0 [facility] ([place]) Comment on above: Performed By: #### D IFF, CBC, MDW, TROPHS, LIP, CMP, GFR, MORPH #### [address] [address] Monocyte, Abs Manual 0.6 10 3/mcL Normal 0.1-1.4 [facility] ([place]) Comment on above: Performed By: #### D IFF, CBC, MDW, TROPHS, LIP, CMP, GFR, MORPH #### [address] [address] Neutrophil %, Manual 42.0 % Low 50.0-75.0 [facility] ([place]) Comment on above: Performed By: #### D IFF, CBC, MDW, TROPHS, LIP, CMP, GFR, MORPH #### [address] [address] Neutrophil, Abs Manual 1.6 10 3/mcL Low 2.3-8.1 [facility] ([place]) Comment on above: Performed By: #### D IFF, CBC, MDW, TROPHS, LIP, CMP, GFR, MORPH #### [place] [address] Nucleated RBC 0.0 /100 WBC Normal [facility] ([place]) Comment on above: Performed By: #### D IFF, CBC, MDW, TROPHS, LIP, CMP, GFR, MORPH #### [place] [address] .Morphon 02-22-2023 Platelet Estimate Normal Normal [facility] ([place]) Comment on above: Performed By: #### D IFF, CBC, MDW, TROPHS, LIP, CMP, GFR, MORPH #### [place] [address] RBC morphology finding Nom (Bld) See Below Normal [facility] ([place]) Comment on above: Result Comment: RBC Morphology appears Normal See Below RBC Morphology appears Normal See Below RBC Morphology appears Normal Performed By: #### D IFF, CBC, MDW, TROPHS, LIP, CMP, GFR, MORPH #### [place] [address] CBCon 02-22-2023 Erythrocyte distribution width (RBC) [Ratio] 12.8 % Normal 11.5-15.5 [facility] ([place]) Comment on above: Performed By: #### D IFF, CBC, MDW, TROPHS, LIP, CMP, GFR, MORPH #### [place] [address] Hematocrit (Bld) [Volume fraction] 51.8 % Normal 40.0-52.0 [facility] ([place]) Comment on above: Performed By: #### D IFF, CBC, MDW, TROPHS, LIP, CMP, GFR, MORPH #### [place] [address] Hgb 18.2 G/dL High 13.0-17.5 [facility] ([place]) Comment on above: Performed By: #### D IFF, CBC, MDW, TROPHS, LIP, CMP, GFR, MORPH #### [place] [address] MCH (RBC) [Entitic mass] 33.5 pg High 27.0-33.0 [facility] ([place]) Comment on above: Performed By: #### D IFF, CBC, MDW, TROPHS, LIP, CMP, GFR, MORPH #### [place] [address] MCHC 35.1 G/dL Normal 32.0-36.0 [facility] ([place]) Comment on above: Performed By: #### D IFF, CBC, MDW, TROPHS, LIP, CMP, GFR, MORPH #### [place] [address] MCV (RBC) [Entitic vol] 95.6 fL Normal 81.0-100.0 [facility] ([place]) Comment on above: Performed By: #### D IFF, CBC, MDW, TROPHS, LIP, CMP, GFR, MORPH #### [place] [address] Platelet 291 10 3/mcL Normal 150-450 [facility] ([place]) Comment on above: Performed By: #### D IFF, CBC, MDW, TROPHS, LIP, CMP, GFR, MORPH #### [place] [address] Platelet mean volume (Bld) [Entitic vol] 7.8 fL Normal 6.4-10.5 [facility] ([place]) Comment on above: Performed By: #### D IFF, CBC, MDW, TROPHS, LIP, CMP, GFR, MORPH #### [place] [address] RBC 5.42 10 6/mcL Normal 4.50-6.00 [facility] ([place]) Comment on above: Performed By: #### D IFF, CBC, MDW, TROPHS, LIP, CMP, GFR, MORPH #### [place] [address] WBC 3.8 10 3/mcL Low 4.5-10.8 [facility] ([place]) Comment on above: Performed By: #### D IFF, CBC, MDW, TROPHS, LIP, CMP, GFR, MORPH #### [address] [address] CMPon 02-22-2023 Albumin Level 4.2 G/dL Normal 3.2-4.8 [facility] ([place]) Comment on above: Performed By: #### D IFF, CBC, MDW, TROPHS, LIP, CMP, GFR, MORPH #### [address] [address] Albumin/Globulin [Mass ratio] 1.6 {ratio} Normal 0.9-1.6 [facility] ([place]) Comment on above: Performed By: #### D IFF, CBC, MDW, TROPHS, LIP, CMP, GFR, MORPH #### [address] [address] ALP [Catalytic activity/Vol] 43 U/L Normal 38-126 [facility] ([place]) Comment on above: Performed By: #### D IFF, CBC, MDW, TROPHS, LIP, CMP, GFR, MORPH #### [address] [address] ALT [Catalytic activity/Vol] 22 U/L Normal 12-55 [facility] ([place]) Comment on above: Performed By: #### D IFF, CBC, MDW, TROPHS, LIP, CMP, GFR, MORPH #### [address] [address] AST [Catalytic activity/Vol] 29 U/L Normal 8-34 [facility] ([place]) Comment on above: Performed By: #### D IFF, CBC, MDW, TROPHS, LIP, CMP, GFR, MORPH #### [address] [address] Bili Total 0.80 mg/dL Normal 0.20-1.20 [facility] ([place]) Comment on above: Result Comment: Use of this assay is not recommended for patients undergoing treatment with eltrombopag due to the potential for falsely elevated results. Performed By: #### D IFF, CBC, MDW, TROPHS, LIP, CMP, GFR, MORPH #### [address] [address] BUN/Creatinine Ratio 14.9 ratio Normal 10.0-22.0 [facility] ([place]) Comment on above: Performed By: #### D IFF, CBC, MDW, TROPHS, LIP, CMP, GFR, MORPH #### [address] [address] Calcium [Mass/Vol] 9.3 mg/dL Normal 8.7-10.4 [facility] ([place]) Comment on above: Performed By: #### D IFF, CBC, MDW, TROPHS, LIP, CMP, GFR, MORPH #### [address] [address] Chloride [Moles/Vol] 106 mmol/L Normal 98-110 [facility] ([place]) Comment on above: Performed By: #### D IFF, CBC, MDW, TROPHS, LIP, CMP, GFR, MORPH #### [address] [address] CO2 [Moles/Vol] 23 mmol/L Normal 22-32 [facility] ([place]) Comment on above: Performed By: #### D IFF, CBC, MDW, TROPHS, LIP, CMP, GFR, MORPH #### [place] [id number] Creatinine [Mass/Vol] 0.87 mg/dL Normal 0.60-1.40 [facility] ([place]) Comment on above: Performed By: #### D IFF, CBC, MDW, TROPHS, LIP, CMP, GFR, MORPH #### [address] [address] Electrolyte Balance 10.0 mEq/L Normal 4.0-15.0 [facility] ([place]) Comment on above: Performed By: #### D IFF, CBC, MDW, TROPHS, LIP, CMP, GFR, MORPH #### [address] [address] Globulin 2.7 G/dL Normal 1.5-3.8 [facility] ([place]) Comment on above: Performed By: #### D IFF, CBC, MDW, TROPHS, LIP, CMP, GFR, MORPH #### [address] [address] Glucose [Mass/Vol] 102 mg/dL Normal 70-110 [facility] ([place] Comment on above: Performed By: #### D IFF, CBC, MDW, TROPHS, LIP, CMP, GFR, MORPH #### [address] [address] Potassium [Moles/Vol] 3.8 mmol/L Normal 3.5-5.0 [facility] ([place]) Comment on above: Result Comment: Spec imen slightly hemolyzed. Performed By: #### D IFF, CBC, MDW, TROPHS, LIP, CMP, GFR, MORPH #### [place] [id number] Sodium [Moles/Vol] 139 mmol/L Normal 136-145 [facility] ([place]) Comment on above: Performed By: #### D IFF, CBC, MDW, TROPHS, LIP, CMP, GFR, MORPH #### [place] [address] Total Protein 6.9 G/dL Normal 5.7-8.2 [facility] ([place]) Comment on above: Result Comment: No te - New Reference Range in effect 19 Performed By: #### D IFF, CBC, MDW, TROPHS, LIP, CMP, GFR, MORPH #### [place] [address] Urea nitrogen [Mass/Vol] 13.0 mg/dL Normal 8.0-22.0 [facility] ([place]) Comment on above: Performed By: #### D IFF, CBC, MDW, TROPHS, LIP, CMP, GFR, MORPH #### [address] [address] LABORATORYOrdered By: Sneha Chow on 02-22-2023 Appearance (U) Clear (02/22/23 5:00 PM) Normal Clear AH Auto Urine SS Bilirubin Ql (U) Negative (02/22/23 5:00 PM) Normal Neg-Trace AH Auto Urine SS Color (U) Yellow (02/22/23 5:00 PM) Normal AH Auto Urine SS Glucose Test strip (U) [Mass/Vol] Negative Normal Negative AH Auto Urine SS Hemoglobin Auto test strip [...] Type Clean Catch (02/22/23 5:00 PM) Normal AH Auto Urine SS UA Urobilinogen 1.0 E.U./dL Normal 0.2-1.0 AH Auto Urine SS LABORATORYOrdered By: SYSTEM SYSTEM on 02-22-2023 Albumin BCP dye [Mass/Vol] 4.2 G/dL Normal 3.2 - 4.8 G/dL AH ADM SS Albumin/Globulin [Mass ratio] 1.6 {ratio} Normal 0.9 - 1.6 ratio AH ADM SS ALP [Catalytic activity/Vol] 43 U/L Normal 38 - 126 U/L AH ADM SS ALT No additional P-5'-P [Catalytic activity/Vol] 22 U/L Normal 12 - 55 U/L AH ADM SS AST [Catalytic activity/Vol] 29 U/L Normal 8 - 34 U/L AH ADM SS Basophils (Bld) [#/Vol] 0.1 103/mcL Normal 0.0 - 0.3 10^3/mcL Workflow SS Basophils/100 WBC (Bld) 2.0 % Normal 0.0 - 2.5 % Workflow SS Bilirubin [Mass/Vol] 0.80 mg/dL Normal 0.20 - 1.20 mg/dL AH ADM SS Comment on above: Interpretive Data: [...] (S/P/Bld) [Vol rate/Area] ml/min/1.73sqm Invalid Interpretation Code ADM SS Comment on above: Interpretive Data: GFR Population [...] (S/P/Bld) [Vol rate/Area] ml/min/1.73sqm Invalid Interpretation Code ADM SS Comment on above: Interpretive Data: GFR Population [...] 102 mg/dL Normal 70 - 110 mg/dL AH ADM SS Hematocrit (Bld) [Volume fraction] 51.8 % Normal 40.0 - 52.0 % AH Workflow SS Hemoglobin (Bld) [Mass/Vol] 18.2 G/dL High 13.0 - 17.5 G/dL AH Workflow SS Lipase [Catalytic activity/Vol] 25 U/L [...] vol] 23.75 1 High 0.00 - 20.00 Workflow SS Comment on above: Result Comment: [...] RBC 0.0 /100 WBC Invalid Interpretation Code Workflow SS Platelet mean volume (Bld) [Entitic vol] 7.8 fL Normal 6.4 - 10.5 fL Workflow SS Platelets (Bld) [#/Vol] 291 103/mcL Normal 150 - 450 10^3/mcL AH Workflow SS Platelets LM Ql (Bld) Normal *NA* (02/22/23 2:34 PM) Invalid Interpretation Code Workflow SS Potassium [Moles/Vol] 3.8 mmol/L Normal 3.5 - 5.0 mEq/L ADM Comment on above: Result Comment: Spec imen slightly hemolyzed. Protein [Mass/Vol] 6.9 G/dL Normal 5.7 - 8.2 G/dL ADM Comment on above: Interpretive Data: * *Note - New Reference Range in effect 19 RBC (Bld) [#/Vol] 5.42 106/mcL Normal 4.50 - 6.0 0 10^6/mcL Workflow SS RBC morphology finding Nom (Bld) See Below 3 *NA* (02/22/23 2:34 PM) Invalid Interpretation Code Workflow Comment on above: Result Comment: RBC Morphology appears Normal RBC morphology finding Nom (Bld) See Below 4 *NA* (02/22/23 2:34 PM) Invalid Interpretation Code Workflow Comment on above: Result Comment: RBC Morphology appears Normal RBC morphology finding Nom (Bld) See Below 5 *NA* (02/22/23 2:34 PM) Invalid Interpretation Code Workflow Comment on above: Result Comment: RBC Morphology appears Normal Sodium [Moles/Vol] 139 mmol/L Normal 136 - 145 mEq/L ADM Troponin I.cardiac DL <= 0.01 ng/mL [Mass/Vol] ng/L Normal 0.00 - 54.00 ng/L ADM SS Urea nitrogen [Mass/Vol] 13.0 mg/dL Normal 8.0 - 22.0 mg/dL ADM SS Urea nitrogen/Creatinine [Mass ratio] 14.9 ratio Normal 10.0 - 22.0 ratio ADM SS WBC (Bld) [#/Vol] 3.8 103/mcL Low 4.5 - 10.8 10^3/mcL AH Workflow SS LIPon 02-22-2023 Lipase Level 25 U/L Normal 12-53 [facility] ([place]) Comment on above: Result Comment: No te - New Reference Range in effect 19 Performed By: #### D IFF, CBC, MDW, TROPHS, LIP, CMP, GFR, MORPH #### [place] [address] TROPHSon 02-22-2023 Troponin I High Sensitivity <2.50 Normal 0.00-54.00 [facility] ([place]) Comment on above: Performed By: #### D IFF, CBC, MDW, TROPHS, LIP, CMP, GFR, MORPH #### [place] [address] UAon 02-22-2023 Color (U) Yellow Normal [facility] ([place]) Comment on above: Performed By: #### U A #### [place] [address] Glucose (U) [Mass/Vol] Negative Normal Negative [facility] ([place]) Comment on above: Performed By: #### U A #### [place] [address] Ketones Ql (U) Trace Normal Neg-Trace [facility] ([place]) Comment on above: Performed By: #### U A #### [place] [address] UA Appear Clear Normal Clear [facility] ([place] Comment on above: Performed By: #### U A #### [place] [address] UA Blood Negative Normal Neg-Trace [facility] ([place]) Comment on above: Performed By: #### U A #### [place] [address] UA Leuk Est Trace Normal Negative [facility] ([place]) Comment on above: Performed By: #### U A #### [place] [address] UA Nitrite Negative Normal Negative [facility] ([place]) Comment on above: Performed By: #### U A #### [address] [address] UA pH 5.5 Normal 5.0 - 8.0 [facility] ([place]) Comment on above: Performed By: #### U A #### [address] [address] UA Spec Grav 1.020 Normal 1.006-1.029 [facility] ([place]) Comment on above: Performed By: #### U A #### [place] [address] UA Specimen Type Clean Catch Normal [facility] ([place]) Comment on above: Performed By: #### U A #### [place] [address] UA Urobilinogen 1.0 E.U./dL Normal 0.2-1.0 [facility] ([place]) Comment on above: Performed By: #### U A #### [place] [address] Urobilinogen (U) [Mass/Vol] Negative Normal Neg-Trace [facility] ([place]) Comment on above: Performed By: #### U A #### [place] [address] UAOrdered By: Sneha Chow on 02-22-2023 UA Protein Negative Normal Negative AH Auto Urine SS Comment on above: Performed By: #### U A #### [place] [address] Absolute lymphocyte countOrd ered By: Uche Segura on 10-14-2022 Lymphocytes Auto (Unsp spec) [#/Vol] 1.87 10*3/uL 0.83-4.51 [facility] Alternaria alternata IgE ser umOrdered By: Uche Segura on 10-14-2022 A. alternata IgE Qn (S) <0.10 kU/L Class 0 [facility] Basophil percentageOrdered B y: Uche Segura on 10-14-2022 Basophils/100 WBC (Bld) 0.6 % 0-1 [facility] Eosinophils/100 WBC (Bld) 5.0 % 0-5 [facility] Neutrophils (Bld) [#/Vol] 2.3 10*3/uL 2.0-7.7 [facility] Neutrophils/100 WBC (Bld) 45.0 % 47-70 [facility] WBC (Bld) [#/Vol] 5.0 10*3/uL 4.4-11.[address] [facility] Blood erythrocytes count (nu mber/volume)Ordered By: Uche Segura on 10-14-2022 RBC (Bld) [#/Vol] 4.72 10*6/uL 4.6-6.2 [facility] Blood hemoglobin measurement (mass/volume)Ordered By: Uche Segura on 10-14-2022 Hemoglobin (Bld) [Mass/Vol] 16.0 g/dL 13.0-16.5 [facility] Blood lymphocytes/100 leukoc ytesOrdered By: Uche Segura on 10-14-2022 Lymphocytes/100 WBC (Bld) 37.1 % 19-41 [facility] Blood monocytes/100 leukocyt esOrdered By: Uche Segura on 10-14-2022 Monocytes/100 WBC (Bld) 11.9 % 0-10 [facility] Blood platelet mean volumeOr dered By: Uche Segura on 10-14-2022 Platelet mean volume (Bld) [Entitic vol] 9.6 fL 6.2-12.0 [facility] Determination of erythrocyte mean corpuscular volume (MCV)Ordered By: Uche Segura on 10-14-2022 MCV (RBC) [Entitic vol] 97.2 fL 80-94 [facility] Hematocrit Auto (Bld) [Volum e fraction]Ordered By: Uche Segura on 10-14-2022 Hematocrit (Bld) [Volume fraction] 45.9 % 40-54 [facility] Laboratory - Hematology and Cell countsOrdered By: Uche Segura on 10-14-2022 Erythrocyte distribution width (RBC) [Entitic vol] 45.3 fL 35.1-43.[address] [facility] Erythrocyte distribution width (RBC) [Ratio] 12.7 % 11.6-14.6 [facility] Immature granulocytes/100 WBC (Bld) 0.400 % 0.0-0.9 [facility] Comment on above: IG% - Immature Granu locytes (promyelocytes, myelocytes and metamyelocytes) > 1% indicates that a LEFT SHIFT is Present. MCH (RBC) [Entitic mass] 33.9 pg 27.0-32.0 [facility] Nucleated RBC/100 WBC (Bld) [Ratio] 0 % 0-5 [facility] Laboratory - Miscellaneous t estsOrdered By: Uche Segura on 10-14-2022 Service comment (Unsp spec) [Interp] Comment . [facility] Comment on above: Levels of Specific I [...] 10-14-2022 MCHC (RBC) [Mass/Vol] 34.9 g/dL 32-36 [facility] No Panel InformationOrdered By: Uche Segura on 10-14-2022 Common Ragweed (Short) Allergen 0.16 kU/L Class 0/I [facility] Hungarian Plantain Allergen (RAST) <0.10 kU/L [facility] 0 [facility] Immunoglobulin E 536 IU/mL 6-495 [facility] Comment on above: Performed at: [facility] [id number] Director: Carmen Ascencio MD, Phone: [phone] Mouse Urine Allergen IgE Antibody 1.46 kU/L [facility] III [facility] Comment on above: Performed at: [facility] [id number] Director: Carmen Ascencio MD, Phone: [phone] Platelets bldOrdered By: Navin Segura on 10-14-2022 Platelets (Bld) [#/Vol] 270 10*3/uL 150-450 [facility] Serum Aspergillus flavus ant ibody detection by immunodiffusionOrdered By: Uche Segura on 10-14-2022 A. flavus Ab Immune diff Ql (S) Negative Neg:<1:1 [facility] Serum Aspergillus fumigatus antibody detection by immunodiffusionOrdered By: Uche Segura on 10-14-2022 A. fumigatus Ab Immune diff Ql (S) Negative Neg:<1:1 [facility] Serum Aspergillus niger anti body detection by immunodiffusionOrdered By: Uche Segura on 10-14-2022 A. niger Ab Immune diff Ql (S) Negative Neg:<1:1 [facility] Serum Bermuda grass IgE anti body assay (units/volume)Ordered By: Uche Segura on 10-14-2022 Bermuda grass IgE Qn (S) <0.10 kU/L Class 0 [facility] Serum Dermatophagoides farin ae specific IgE antibody assay (units/volume)Ordered By: Uche Segura on 10-14-2022 Marshallese house dust mite IgE Qn (S) 0.79 kU/L Class II [facility] Serum house dust mi te IgE antibody assay (units/volume)Ordered By: Uche Segura on 10-14-2022 house dust mite IgE Qn (S) 0.79 kU/L Class II [facility] Serum [place] blue grass Ig E antibody assay (units/volume)Ordered By: Uche Segura on 10-14-2022 [place] blue grass IgE Qn (S) <0.10 kU/L Class 0 [facility] Serum cat dander IgE antibod y assay (units/volume)Ordered By: Uche Segura on 10-14-2022 Cat dander IgE Qn (S) 75.20 kU/L Class V [facility] Serum dog epithelium IgE ant ibody assay (units/volume)Ordered By: Uche Segura on 10-14-2022 Dog epithelium IgE Qn (S) 8.15 kU/L Class IV [facility] Serum white elm IgE antibody assay (units/volume)Ordered By: Uche Segura on 10-14-2022 White Elm IgE Qn (S) <0.10 kU/L Class 0 [facility] Serum white oak IgE antibody assay (units/volume)Ordered By: Uche Segura on 10-14-2022 [place] IgE Qn (S) <0.10 kU/L Class 0 [facility] LABORATORYOrdered By: Calista Garcia on 04-17-2022 FLUAV RNA JITENDRA+probe Ql (Resp) Negative 2 (04/17/22 9:23 AM) Invalid Interpretation Code Negative AH Auto Viro/Sero SS Comment on above: Result Comment: [place] [id number] FLUBV RNA JITENDRA+probe Ql (Resp) Negative 3 (04/17/22 9:23 AM) Invalid Interpretation Code Negative AH Auto Viro/Sero SS Comment on above: Result Comment: Note s [id number] RSV PCR Positive 4 *ABN* (04/17/22 9:23 AM) Invalid Interpretation Code Negative AH Auto Viro/Sero SS Comment on above: Result Comment: Th is is a potential nosocomial infectious agent. Infection Control has been notified. Notes [id number] SARS-CoV-2 (COVID-19) RNA JITENDRA+probe Ql (Resp) Negative 1 (04/17/22 9:23 AM) Invalid Interpretation Code Negative AH Auto Viro/Sero SS Comment on above: Result Comment: Note s [id number] LABORATORYOrdered By: SYSTEM SYSTEM on 06-24-2021 Base [...] Invalid Interpretation Code 136 - 145 mEq/L AH ADM SS Troponin I.cardiac DL <= 0.01 ng/mL [Mass/Vol] ng/L Invalid Interpretation Code 0.00 - 54.00 ng/L AH ADM SS Urea nitrogen [Mass/Vol] 18.0 mg/dL Invalid Interpretation Code 8.0 - 22.0 mg/dL AH ADM SS Urea nitrogen/Creatinine [Mass ratio] 24.3 ratio Invalid Interpretation Code 10.0 - 22.0 ratio AH ADM SS WBC (Bld) [#/Vol] 15.90 103/mcL Invalid Interpretation Code 4.50 - 10.80 10^3/mcL AH Remisol SS LABORATORYOrdered By: Rita Monson on 06-24-2021 Fibrin D-dimer DDU (PPP) [Mass/Vol] ng/mL D-DU Invalid Interpretation Code 0 - 230 ng/mL D-DU Auto Coag SS Comment on above: Result Comment: Resu lts reported in D-DU ng/ml. Negative for D-dimer. DVT/PE is highly unlikely. Note: False negative results may be seen in patients on anticoagulant therapy. [facility] DATE OF SERVICE: 10/08/2016CHIEF COMPLAINT: Bites to [...] HISTORY: Patient smokes tobacco less than a [id number]-fy-[id number]-pack per day. Drinksalcohol on occasion.HOME MEDICATIONS: Breo, [...] betamethasone cream. I discussed withhim that an chief executive is needed to rid the household of the bugs that are bitingboth him and his family members. He was discharged in stable condition to return toUrgent Care if there is any further problem. Kelly Irma Candelario, DO [facility] PATIENT NAME: DAHLIA CHOE [id number] [place] MEDICAL REC #: [id number], [place] [address] [facility] STATCARE REPORT STATCARE PHYSICIANDM/[id number] 5DD: 10/08/2016 10:22DT: 10/09/2016 08:44SSI File#: [id number] #: [id number] [facility] PATIENT NAME: DAHLIA CHOE [id number] [place] MEDICAL REC #: [id number], [place] [address] [facility] STATCARE REPORT STATCARE PHYSICIAN [facility] STATCARE REPORT This is a preliminary report only, as the practitioner review and authentication has not occurred. [facility] Vital Signs Date Time Vital Sign Value Performing Clinician Facility 09-09-2024 10:090400 Body height 175.[address] Kellie Caballero DO Work Phone: [facility] 09-09-2024 10:09-0400 Body mass index (BMI) [Ratio] 26.6 kg/m2 Dr. Kellie Caballero DO Work Phone: [facility] 09-09-2024 10:09-0400 Body temperature 96.7 [degF] Dr. Kellie Caballero DO Work Phone: [facility] 09-09-2024 10:09-0400 Body weight 81.[address] Kellie Caballero DO Work Phone: [facility] 09-09-2024 10:09-0400 Diastolic blood pressure 64 mm[Hg] Dr. Kellie Caballero DO Work Phone: [facility] 09-09-2024 10:09-0400 Heart rate 60 /min Dr. Kellie Caballero DO Work Phone: [facility] 09-09-2024 10:09-0400 Respiratory rate 16 /min Dr. Kellie Caballero DO Work Phone: [facility] 09-09-2024 10:09-0400 SaO2% (BldA) [Mass fraction] 94 % Dr. Kellie Caballero DO Work Phone: [facility] 09-09-2024 10:09-0400 Systolic blood pressure 127 mm[Hg] Dr. Kellie Caballero DO Work Phone: [facility] 07-29-2024 09:57-0400 Body mass index (BMI) [Ratio] 25.8 kg/m2 Dr. Kellie Caballero DO Work Phone: [facility] 07-29-2024 09:57-0400 Body temperature 96.5 [degF] Dr. Kellie Caballero DO Work Phone: [facility] 07-29-2024 09:57-0400 Body weight 79.[address] Kellie Caballero DO Work Phone: [facility] 07-29-2024 09:57-0400 Diastolic blood pressure 64 mm[Hg] Dr. Kellie Caballero DO Work Phone: [facility] 07-29-2024 09:57-0400 Heart rate 56 /min Dr. Kellie Caballero DO Work Phone: [facility] 07-29-2024 09:57-0400 Respiratory rate 16 /min Dr. Kellie Caballero DO Work Phone: [facility] 07-29-2024 09:57-0400 SaO2% (BldA) [Mass fraction] 95 % Dr. Kellie Caballero DO Work Phone: [facility] 07-29-2024 09:57-0400 Systolic blood pressure 129 mm[Hg] Dr. Kellie Caballero DO Work Phone: [facility] 07-01-2024 09:56-0400 Body height 175.[address] Kellie Caballero DO Work Phone: [facility] 07-01-2024 09:56-0400 Body mass index (BMI) [Ratio] 27.8 kg/m2 Dr. Kellie Caballero DO Work Phone: [facility] 07-01-2024 09:56-0400 Body temperature 97.7 [degF] Dr. Kellie Caballero DO Work Phone: [facility] 07-01-2024 09:56-0400 Body weight 85.[address] Kellie Caballero DO Work Phone: [facility] 07-01-2024 09:56-0400 Diastolic blood pressure 56 mm[Hg] Dr. Kellie Caballero DO Work Phone: [facility] 07-01-2024 09:56-0400 Heart rate 56 /min Dr. Kellie Caballero DO Work Phone: [facility] 07-01-2024 09:56-0400 Respiratory rate 16 /min Dr. Kellie Caballero DO Work Phone: [facility] 07-01-2024 09:56-0400 SaO2% (BldA) [Mass fraction] 97 % Dr. Kellie Caballero DO Work Phone: [facility] 07-01-2024 09:56-0400 Systolic blood pressure 110 mm[Hg] Dr. Kellie Caballero DO Work Phone: [facility] 06-10-2024 08:01-0500 Body mass index (BMI) [Ratio] 24.5 kg/m2 Dr. Kellie Caballero DO Work Phone: [facility] 06-10-2024 08:01-0500 Body temperature 97.5 [degF] Dr. Kellie Caballero DO Work Phone: [facility] 06-10-2024 08:01-0500 Body weight 75.[address] Kellie Caballero DO Work Phone: [facility] 06-10-2024 08:01-0500 Diastolic blood pressure 76 mm[Hg] Dr. Kellie Caballero DO Work Phone: [facility] 06-10-2024 08:01-0500 Heart rate 71 /min Dr. Kellie Caballero DO Work Phone: [facility] 06-10-2024 08:01-0500 Respiratory rate 20 /min Dr. Kellie Caballero DO Work Phone: [facility] 06-10-2024 08:01-0500 SaO2% (BldA) [Mass fraction] 94 % Dr. Kellie Caballero DO Work Phone: [facility] 06-10-2024 08:01-0500 Systolic blood pressure 122 mm[Hg] Dr. Kellie Caballero DO Work Phone: [facility] 06-03-2024 08:33-0500 Body mass index (BMI) [Ratio] 25.1 kg/m2 Dr. Kellie Caballero DO Work Phone: [facility] 06-03-2024 08:33-0500 Body temperature 97 [degF] Dr. Kellie Caballero DO Work Phone: [facility] 06-03-2024 08:33-0500 Body weight 77.[address] Kellie Caballero DO Work Phone: [facility] 06-03-2024 08:33-0500 Diastolic blood pressure 71 mm[Hg] Dr. Kellie Caballero DO Work Phone: [facility] 06-03-2024 08:33-0500 Heart rate 68 /min Dr. Kellie Caballero DO Work Phone: [facility] 06-03-2024 08:33-0500 Respiratory rate 16 /min Dr. Kellie Caballero DO Work Phone: [facility] 06-03-2024 08:33-0500 SaO2% (BldA) [Mass fraction] 94 % Dr. Kellie Caballero DO Work Phone: [facility] 06-03-2024 08:33-0500 Systolic blood pressure 144 mm[Hg] Dr. Kellie Caballero DO Work Phone: [facility] 05-06-2024 10:15-0500 Body temperature 97.4 [degF] Dr. Kellie Caballero DO Work Phone: [facility] 05-06-2024 10:15-0500 Diastolic blood pressure 66 mm[Hg] Dr. Kellie Caballero DO Work Phone: [facility] 05-06-2024 10:15-0500 Heart rate 60 /min Dr. Kellie Caballero DO Work Phone: [facility] 05-06-2024 10:15-0500 Respiratory rate 16 /min Dr. Kellie Caballero DO Work Phone: [facility] 05-06-2024 10:15-0500 SaO2% (BldA) [Mass fraction] 98 % Dr. Kellie Caballero DO Work Phone: [facility] 05-06-2024 10:15-0500 Systolic blood pressure 116 mm[Hg] Dr. Kellie Caballero DO Work Phone: [facility] 04-01-2024 08:55-0500 Body mass index (BMI) [Ratio] 23.6 kg/m2 Dr. Kellie Caballero DO Work Phone: [facility] 04-01-2024 08:55-0500 Body temperature 96.7 [degF] Dr. Kellie Caballero DO Work Phone: [facility] 04-01-2024 08:55-0500 Body weight 72.[address] Kellie Caballero DO Work Phone: [facility] 04-01-2024 08:55-0500 Diastolic blood pressure 73 mm[Hg] Dr. Kellie Caballero DO Work Phone: [facility] 04-01-2024 08:55-0500 Heart rate 73 /min Dr. Kellie Caballero DO Work Phone: [facility] 04-01-2024 08:55-0500 Respiratory rate 16 /min Dr. Kellie Caballero DO Work Phone: [facility] 04-01-2024 08:55-0500 SaO2% (BldA) [Mass fraction] 97 % Dr. Kellie Caballero DO Work Phone: [facility] 04-01-2024 08:55-0500 Systolic blood pressure 124 mm[Hg] Dr. Kellie Caballero DO Work Phone: [facility] 03-04-2024 08:57-0500 Body mass index (BMI) [Ratio] 23.6 kg/m2 Dr. Kellie Caballero DO Work Phone: [facility] 03-04-2024 08:57-0500 Body temperature 96.7 [degF] Dr. Kellie Caballero DO Work Phone: [phone] [place] [address] 03-04-2024 08:57-0500 Body weight 72.[address] Kellie Caballero DO Work Phone: [facility] 03-04-2024 08:57-0500 Diastolic blood pressure 83 mm[Hg] Dr. Kellie Caballero DO Work Phone: [facility] 03-04-2024 08:57-0500 Heart rate 70 /min Dr. Kellie Caballero DO Work Phone: [facility] 03-04-2024 08:57-0500 Respiratory rate 16 /min Dr. Kellie Caballero DO Work Phone: [facility] 03-04-2024 08:57-0500 SaO2% (BldA) [Mass fraction] 96 % Dr. Kellie Caballero DO Work Phone: [facility] 03-04-2024 08:57-0500 Systolic blood pressure 128 mm[Hg] Dr. Kellie Caballero DO Work Phone: [facility] 05-01-2023 09:26-0500 Body height 172.[address] Kellie Caballero Work Phone: [facility] 05-01-2023 09:26-0500 Body mass index (BMI) [Ratio] 27 kg/m2 Dr. Kellie Caballero Work Phone: [facility] 05-01-2023 09:26-0500 Body temperature 97.1 [degF] Dr. Kellie Caballero Work Phone: [facility] 05-01-2023 09:26-0500 Body weight 80.[address] Kellie Caballero Work Phone: [facility] 05-01-2023 09:26-0500 Diastolic blood pressure 70 mm[Hg] Dr. Kellie Caballero Work Phone: [facility] 05-01-2023 09:26-0500 Heart rate 77 /min Dr. Kellie Caballero Work Phone: [facility] 05-01-2023 09:26-0500 Respiratory rate 16 /min Dr. Kellie Caballero Work Phone: [facility] 05-01-2023 09:26-0500 SaO2% (BldA) [Mass fraction] 93 % Dr. Kellie Caballero Work Phone: [facility] 05-01-2023 09:26-0500 Systolic blood pressure 128 mm[Hg] Dr. Kellie Caballero Work Phone: [facility] 04-10-2023 17:15-0500 Diastolic Blood Pressure Non-Invasive 91 mm[Hg] DR TASNEEM HERRERA DO [facility] 04-10-2023 17:15-0500 Heart rate 72 /min DR TASNEEM HERRERA DO [facility] 04-10-2023 17:15-0500 Respiratory rate 16 /min DR TASNEEM HERRERA DO [facility] 04-10-2023 17:15-0500 Systolic Blood Pressure Non-Invasive 146 mm[Hg] DR TASNEEM HERRERA DO [facility] 04-10-2023 16:37-0500 Diastolic Blood Pressure Non-Invasive 91 mm[Hg] DR TASNEEM HERRERA DO [facility] 04-10-2023 16:37-0500 Heart rate 68 /min DR TASNEEM HERRERA DO [facility] 04-10-2023 16:37-0500 Respiratory rate 18 /min DR TSANEEM HERRERA DO [facility] 04-10-2023 16:37-0500 Systolic Blood Pressure Non-Invasive 140 mm[Hg] DR TASNEEM HERRERA DO [facility] 04-10-2023 15:58-[address] TASNEEM HERRERA DO [facility] 04-10-2023 15:58-[address] TASNEEM HERRERA DO [facility] 04-10-2023 15:58-0500 Diastolic Blood Pressure Non-Invasive 94 mm[Hg] DR TASNEEM HERRERA DO [facility] 04-10-2023 15:58-0500 Heart rate 84 /min DR TASNEEM HERRERA DO [facility] 04-10-2023 15:58-0500 Mean blood pressure 110 mm[Hg] DR TASNEEM HERRERA DO [facility] 04-10-2023 15:58-0500 Respiratory rate 18 /min DR TASNEEM HERRERA DO [facility] 04-10-2023 15:58-0500 Systolic Blood Pressure Non-Invasive 153 mm[Hg] DR TASNEEM HERRERA DO [facility] 04-10-2023 13:24-[address] TASNEEM HERRERA DO [facility] 04-10-2023 13:24-[address] TASNEEM HERRERA DO [facility] 04-10-2023 13:24-0500 Body temperature 98.24 [degF] DR TASNEEM HERRERA DO [facility] 04-10-2023 13:24-0500 Body weight 81.[address] TASNEEM HERRERA DO [facility] 03-16-2023 09:07-0500 Body height 172.[address] Kellie Caballero Work Phone: [facility] 03-16-2023 09:07-0500 Body mass index (BMI) [Ratio] 24.3 kg/m2 Dr. Kellie Caballero Work Phone: [facility] 03-16-2023 09:07-0500 Body temperature 98.1 [degF] Dr. Kellie Caballero Work Phone: [facility] 03-16-2023 09:07-0500 Body weight 72.[address] Kellie Caballero Work Phone: [facility] 03-16-2023 09:07-0500 Diastolic blood pressure 92 mm[Hg] Dr. Kellie Caballero Work Phone: [facility] 03-16-2023 09:07-0500 Heart rate 83 /min Dr. Kellie Caballero Work Phone: [facility] 03-16-2023 09:07-0500 Respiratory rate 16 /min Dr. Kellie Caballero Work Phone: [facility] 03-16-2023 09:07-0500 SaO2% (BldA) [Mass fraction] 97 % Dr. Kellie Caballero Work Phone: [facility] 03-16-2023 09:07-0500 Systolic blood pressure 130 mm[Hg] Dr. Kellie Caballero Work Phone: [facility] 03-16-2023 07:59-0500 Body mass index (BMI) [Ratio] 24.5 kg/m2 Dr. Kellie Caballero Work Phone: [facility] 03-16-2023 07:59-0500 Body temperature 98.1 [degF] Dr. Kellie Caballero Work Phone: [facility] 03-16-2023 07:59-0500 Body weight 73.[address] Kellie Caballero Work Phone: [facility] 03-16-2023 07:59-0500 Diastolic blood pressure 91 mm[Hg] Dr. Kellie Caballero Work Phone: [facility] 03-16-2023 07:59-0500 Heart rate 89 /min Dr. Kellie Caballero Work Phone: [facility] 03-16-2023 07:59-0500 Respiratory rate 18 /min Dr. Kellie Caballero Work Phone: [facility] 03-16-2023 07:59-0500 SaO2% (BldA) [Mass fraction] 96 % Dr. Kellie Caballero Work Phone: [facility] 03-16-2023 07:59-0500 Systolic blood pressure 136 mm[Hg] Dr. Kellie Caballero Work Phone: [facility] 02-22-2023 20:15-0500 Diastolic Blood Pressure Non-Invasive 86 mm[Hg] ODALIS CERVANTES MD [facility] 02-22-2023 20:15-0500 Heart rate 68 /min ODALIS CERVANTES MD [facility] 02-22-2023 20:15-0500 Respiratory rate 18 /min ODALIS CERVANTES MD [facility] 02-22-2023 20:15-0500 Systolic Blood Pressure Non-Invasive 133 mm[Hg] ODALIS CERVANTES MD [facility] 02-22-2023 16:28-0500 Diastolic Blood Pressure Non-Invasive 81 mm[Hg] OADLIS CERVANTES MD [facility] 02-22-2023 16:28-0500 Heart rate 72 /min ODALIS CERVANTES MD [facility] 02-22-2023 16:28-0500 Respiratory rate 18 /min ODALIS CERVANTES MD [facility] 02-22-2023 16:28-0500 Systolic Blood Pressure Non-Invasive 146 mm[Hg] ODALIS CERVANTES MD [address] [place] [address] 02-22-2023 14:22-0500 Body temperature 97.16 [degF] ODALIS CERVANTES MD [facility] 02-22-2023 14:22-0500 Body weight 73 kg ODALIS CERVANTES MD [facility] 02-22-2023 14:22-0500 Diastolic Blood Pressure Non-Invasive 118 mm[Hg] ODALIS CERVANTES MD [facility] 02-22-2023 14:22-0500 Heart rate 92 /min ODALIS CERVANTES MD [facility] 02-22-2023 14:22-0500 Respiratory rate 16 /min ODALIS CERVANTES MD [facility] 02-22-2023 14:22-0500 Systolic Blood Pressure Non-Invasive 151 mm[Hg] ODALIS CERVANTES MD [facility] 01-02-2023 11:23-0400 Body temperature 97.9 [degF] Dr. Kellie Caballero Work Phone: [facility] 01-02-2023 11:23-0400 Diastolic blood pressure 80 mm[Hg] Dr. Kellie Caballero Work Phone: [facility] 01-02-2023 11:23-0400 Heart rate 70 /min Dr. Kellie Caballero Work Phone: [facility] 01-02-2023 11:23-0400 Respiratory rate 18 /min Dr. Kellie Caballero Work Phone: [facility] 01-02-2023 11:23-0400 SaO2% (BldA) [Mass fraction] 97 % Dr. Kellie Caballero Work Phone: [facility] 01-02-2023 11:23-0400 Systolic blood pressure 134 mm[Hg] Dr. Kellie Caballero Work Phone: [facility] 01-02-2023 08:59-0400 Body mass index (BMI) [Ratio] 25 kg/m2 Dr. Kellie Caballero Work Phone: [facility] 01-02-2023 08:59-0400 Body weight 74.[address] Kellie Caballero Work Phone: [facility] 12-16-2022 12:14-0400 Body temperature 97.7 [degF] JAYNE WOOTEN MD [facility] 12-16-2022 12:14-0400 Body weight 74.2 kg JAYNE WOOTEN MD [facility] 12-16-2022 12:14-0400 Diastolic Blood Pressure Non-Invasive 90 1 JAYNE WOOTEN MD [facility] 12-16-2022 12:14-0400 Heart rate 75 /min JAYNE WOOTEN MD [facility] 12-16-2022 12:14-0400 Respiratory rate 20 /min JAYNE WOOTEN MD [facility] 12-16-2022 12:14-0400 Systolic Blood Pressure Non-Invasive 136 1 JAYNE WOOTEN MD [facility] 11-20-2022 07:58-0400 Body mass index (BMI) [Ratio] 24.9 kg/m2 Dr. Kellie Caballero Work Phone: [facility] 11-20-2022 07:58-0400 Body temperature 97.6 [degF] Dr. Kellie Caballero Work Phone: [facility] 11-20-2022 07:58-0400 Body weight 74.[address] Kellie Caballero Work Phone: [facility] 11-20-2022 07:58-0400 Diastolic blood pressure 84 mm[Hg] Dr. Kellie Caballero Work Phone: [facility] 11-20-2022 07:58-0400 Heart rate 73 /min Dr. Kellie Caballero Work Phone: [facility] 11-20-2022 07:58-0400 Respiratory rate 18 /min Dr. Kellie Caballero Work Phone: [facility] 11-20-2022 07:58-0400 SaO2% (BldA) [Mass fraction] 97 % Dr. Kellie Caballero Work Phone: [facility] 11-20-2022 07:58-0400 Systolic blood pressure 135 mm[Hg] Dr. Kellie Caballero Work Phone: [facility] 10-14-2022 08:39-0400 Body height 172.[address] Uche Segura Work Phone: [facility] 10-14-2022 08:39-0400 Body mass index (BMI) [Ratio] 25 kg/m2 Dr. Uche Segura Work Phone: [facility] 10-14-2022 08:39-0400 Body temperature 97.3 [degF] Dr. Uche Segura Work Phone: [facility] 10-14-2022 08:39-0400 Body weight 74.[address] Uche Segura Work Phone: [facility] 10-14-2022 08:39-0400 Diastolic blood pressure 82 mm[Hg] Dr. Uche Segura Work Phone: [facility] 10-14-2022 08:39-0400 Heart rate 62 /min Dr. Uche Segura Work Phone: [facility] 10-14-2022 08:39-0400 Respiratory rate 18 /min Dr. Uche Segura Work Phone: [facility] 10-14-2022 08:39-0400 SaO2% (BldA) [Mass fraction] 96 % Dr. Uche Segura Work Phone: [facility] 10-14-2022 08:39-0400 Systolic blood pressure 135 mm[Hg] Dr. Uche Segura Work Phone: [facility] 04-17-2022 08:33-0500 Body temperature 97.88 [degF] JAYNE WOOTEN MD [facility] 04-17-2022 08:33-0500 Body weight 77.5 kg JAYNE WOOTEN MD [facility] 04-17-2022 08:33-0500 Diastolic Blood Pressure Non-Invasive 126 1 JAYNE WOOTEN MD [facility] 04-17-2022 08:33-0500 Heart rate 97 /min JAYNE WOOTEN MD [facility] 04-17-2022 08:33-0500 Respiratory rate 18 /min JAYNE WOOTEN MD [facility] 04-17-2022 08:33-0500 Systolic Blood Pressure Non-Invasive 161 1 JAYNE WOOTEN MD [facility] 06-24-2021 12:05-0400 Diastolic blood pressure 71 mm[Hg] ZULAY WALLACEGena [facility] 06-24-2021 12:05-0400 Heart rate 88 /min ZULAY JOSUÉMELODYT DO [facility] 06-24-2021 12:05-0400 Mean blood pressure 91 mm[Hg] ZULAY JOSUÉTEETEE DO [facility] 06-24-2021 12:05-0400 Respiratory rate 17 /[facility]24[facility] 12:05-0400 Systolic blood pressure 131 mm[Hg] [employer] [facility] 06-24-2021 09:05-0400 Heart rate 107 /[facility] 06-24-2021 09:05-0400 Respiratory rate 18 /min [employer] [facility] 06-24-2021 08:50-0400 Heart rate 81 /[facility] 06-24-2021 08:50-0400 Respiratory rate 14 /min ZULAY [employer] [facility] 06-24-2021 08:08-0400 Body temperature 98.06 [degF] [facility] [facility] 06-24-2021 08:08-0400 Body weight 66.5 kg [employer] [employer] [facility] 06-24-2021 08:08-0400 Diastolic blood pressure 75 mm[Hg] [facility] [facility] 06-24-2021 08:08-0400 Heart rate 103 /min [employer] [facility] 06-24-2021 08:08-0400 Systolic blood pressure 139 mm[Hg] ZULAY ZAMAN DO [facility] Encounters Encounter Date Encounter Type Care Provider Facility Start: 10-21-2024 ambulatory Rosanna Saunders [employer] Fac ility:[facility] Start: 10-10-2024 End: 10-10-2024 Emergency department patient visit KELLIE CABALLERO DO Facility:A Start: 09-09-2024 End: 09-09-2024 Patient encounter procedure Rosanna Saunders [employer]-C -[facility] Work Phone: Start: 09-09-2024 End: 09-09-[address] Kellie Caballero DO Work Phone: [facility] Work Phone: Start: 07-29-2024 End: 07-29-2024 Patient encounter procedure Rosanna Saunders NP-C -[facility] Work Phone: Start: 07-29-2024 End: 07-29-2024 ambulatory Rosanna Saunders NP Facility:[facility] Start: 07-01-2024 End: 07-01-2024 Patient encounter procedure Rosanna Saunders NP-C -[facility] Work Phone: Start: 07-01-2024 End: 07-01-[address] Kellie Caballero DO Work Phone: [facility] Work Phone: Start: 06-10-2024 End: 06-10-2024 Patient encounter procedure Rosanna Saunders HOT [employer]GER-C -[facility] Work Phone: Start: 06-10-2024 End: 06-10-2024 ambulatory Rosanna Saunders [employer] Facility:[facility] Start: 06-03-2024 End: 06-03-2024 Patient encounter procedure Rosanna Saunders [employer]-C -[facility] Work Phone: Start: 06-03-2024 End: 06-03-2024 ambulatory Rosanna Saunders [employer] Facility:[facility] Start: 05-06-2024 End: 05-06-2024 ambulatory Rosanna Saunders [employer] Facility:[facility] Start: 05-06-2024 End: 05-06-2024 Patient encounter procedure Rsoannagm Saunders [employer]GER-C -[facility] Work Phone: Start: 04-01-2024 End: 04-01-2024 Patient encounter procedure Rosanna Saunders [employer]-C -[facility] Work Phone: Start: 04-01-2024 End: 04-01-2024 ambulatory Rosanna Saunders [employer] Facility:[facility] Start: 03-04-2024 End: 03-04-2024 Patient encounter procedure Rosanna Saunders [employer]-C -[facility] Work Phone: Start: 03-04-2024 End: 03-04-2024 ambulatory Rosanna Saunders [employer] Facility:[facility] Start: 01-29-2024 End: 01-29-2024 ambulatory Rosanna Saunders [employer] Facility:[facility] Start: 01-01-2024 End: 01-01-2024 ambulatory Rosanna Saunders [employer] Facility:[facility] Start: 12-30-2023 End: 12-30-2023 Emergency department patient visit CHETAN CAMEJO MD Facility:A Start: 12-24-2023 End: 12-24-2023 Emergency department patient visit CHETAN CAMEJO MD Facility:A Start: 12-11-2023 End: 12-11-2023 ambulatory Rosanna Saunders [employer] Facility:[facility] Start: 10-18-2023 End: 10-18-2023 Emergency department [...] 05-01-[address] Kellie Caballero Work Phone: [facility] Work Phone: Start: 05-01-2023 End: 05-01-[address] [facility] Start: 05-01-2023 End: 05-01-2023 Emergency department patient visit KELLIE DYLANTAO INIGUEZ Facility:A Start: 04-10-2023 End: 04-10-2023 Emergency department patient visit DR TASNEEM HERRERA DO [facility] Start: 03-25-2023 End: 03-25-2023 Emergency department patient visit KELLIE RICHARDSONTAO INIGUEZ Facility:A Start: 03-16-2023 End: 03-16-[address] Kellie Caballero Work Phone: [facility] Work Phone: Start: 03-16-2023 End: 03-16-[address] Kellie Caballero Work Phone: [facility] Work Phone: Start: 03-16-2023 End: 03-16-[address] Kellie Caballero Work Phone: [facility]-P[facility] Medicine [facility] Work Phone: Start: 02-22-2023 End: 02-22-2023 Emergency department patient visit ODALIS CERVANTES MD [facility] Start: 02-22-2023 End: 02-22-2023 Emergency department patient visit KELLIE DYLANTAO INIGUEZ Facility:A Start: 01-02-2023 End: 01-02-[address] Kell[facility]allero [facility] Work Phone: Start: 12-22-2022 End: 12-22-2022 Emergency department patient visit KELLIE CABALLERO DO Facility:A Start: 12-16-2022 End: 12-16-2022 Emergency department patient visit ALBERTO HOGAN MD Facility:A Start: 12-16-2022 End: 12-16-2022 Emergency department patient visit JAYNE WOOTEN MD [facility] Start: 11-20-2022 End: 11-20-[address] Kellie Caballero [facility] Work Phone: Start: 11-12-2022 Non-patient / Non-visit Dr. Gildardo Segura Work Phone: [facility] Start: 11-11-2022 End: 11-11-[address] Uche Segura Work Phone: [facility] Work Phone: Start: 11-11-2022 End: 11-11-[address] Uche Segura Work Phone: [facility]-Pulmonary Services/Neurology Work Phone: Start: 10-14-2022 End: 10-14-[address] Uche Segura Work Phone: [facility] Work Phone: Start: 10-14-2022 End: 10-14-[address] Uche Segura [facility] Work Phone: Start: 05-02-2022 End: 05-02-2022 Patient encounter procedure KELLIE CABALLERO DO [facility] Start: 04-17-2022 End: 04-17-2022 Emergency department patient visit JAYNE WOOTEN MD [facility] Start: 04-17-2022 End: 04-17-2022 Emergency department patient visit JAYNE WOOTEN MD [facility] Start: 06-24-2021 End: 06-24-2021 [facility] Start: 10-08-2016 Ambulatory Kelly Candelario Facility:[facility] Procedures Date Procedure Procedure Detail Performing Clinician None (qualifier value) [facility] Plan of Treatment Date Care Activity Detail Author Start: 10-14-2022 IgE [Units/volume] i n Serum or Plasma [facility] Start: 10-14-2022 [facility] Measurement of Asper gillus flavus antibody [facility] Measurement of Asper gillus fumigatus antibody [facility] Measurement of Asper gillus niger antibody [facility] Measurement of respi ratory function [facility] Immunizations Immunization Date Immunization Notes Care Provider Fa [facility] 01-15-2023 influenza, injectabl e, quadrivalent, contains preservative; Translations: [Fluarix PF Quadrivalent ] ODALIS CERVANTES MD [facility] 08-22-2020 SARS-CoV-2 (COVID-19 ) mRNA-127 vaccine JAYNE WOOTEN MD [facility] 07-25-2020 SARS-CoV-2 (COVID-19 ) mRNA-1272 vaccine JAYNE WOOTEN MD [facility] 04-06-2020 SARS-CoV-2 (COVID-19 ) mRNA-1273 vaccine JAYNE WOOTEN MD [facility] 03-07-2019 influenza virus vaccine, unspecified formulation JAYNE WOOTEN MD [facility] 04-30-1990 measles/mumps/rubell a virus vaccine JAYNE WOOTEN MD [facility] Payers Date Payer Category Payer Self-pay 2022 Unknown [id number] 2016 Unknown [id number] 1989 Unknown [id number] 2.16.8 [id number] 1989 Unknown [id number] 2.16.8 40.1.564044.3.579.2.627 1989 Unknown [id number] 2.16.8 40.1.572403.3.579.2.627 1989 Unknown [id number] 2.16.8 40.1.594040.3.579.2.627 1989 Unknown [id number] 2.16.8 40.1.728070.3.579.2.627 1989 Unknown [id number] 2.16.8 40.1.741519.3.579.2.627 1989 Unknown [id number] 2.16.8 40.1.723796.3.579.2.627 1989 Unknown [id number] 2.16.8 40.1.052076.3.579.2.627 1989 Unknown [id number] 2.16.8 40.1.919844.3.579.2.627 1989 Unknown [id number] 2.16.8 40.1.837018.3.579.2.627 1989 Unknown [id number] 2.16.8 40.1.807669.3.579.2.627 1989 Unknown [id number] 2.16.8 40.1.911449.3.579.2.627 1989 Unknown [id number] 2.16.8 40.1.454548.3.579.2.627 1989 Unknown [id number] 2.16.8 40.1.602855.3.579.2.627 1989 Unknown [id number] 2.16.8 40.1.951520.3.579.2.627 1989 Unknown [id number] 2.16.8 40.1.632766.3.579.2.627 1989 Unknown [id number] 2.16.8 40.1.997033.3.579.2.627 1989 Unknown [id number] 2.16. 840.1.321315.3.579.2.627 1989 Unknown [id number] 2.16.8 40.1.208854.3.579.2.627 1989 Unknown [id number] 2.16.8 40.1.051035.3.579.2.627 Unknown [id number] 2.16.8 40.1.009982.3.579.2.462 Unknown [id number] 2.16.8 40.1.871312.3.579.2.462 Unknown [id number] 2.16.8 40.1.098843.3.579.2.462 Unknown [id number] 2.16.8 40.1.017261.3.579.2.462 Unknown [id number] 2.16.8 40.1.765025.3.579.2.462 Unknown [id number] 2.16.8 40.1.520078.3.579.2.462 Unknown [id number] 2.16.8 40.1.100485.3.579.2.462 Unknown [id number] 2.16.8 40.1.372956.3.579.2.462 Unknown [id number] 2.16.8 40.1.092760.3.579.2.462 Unknown [id number] 2.16.8 40.1.307482.3.579.2.462 Unknown [id number] 2.16.8 40.1.879973.3.579.2.462 Unknown [id number] 2.16.8 40.1.126089.3.579.2.462 Social History Date Type Detail Facility Start: 06-18-2021 End: 12-30-2021 Light tobacco smoker (finding) [facility] Sex Assigned At [facility] Start: 10-14-2022 End: 03-16-2023 Tobacco smoking status WVIS Unknown if ever smoked [facility] Start: 1990 Sex Assigned At Male [facility] Start: 09-16-2022 Tobacco smoking status Ex-smoker (fi nding) [facility] Start: 03-16-2023 Tobacco smoking stat us WVIS Smokes tobacco daily (finding) [facility] Start: 07-02-2024 Sex Male (finding) [facility] Functional Status Date Assessment Result Facility 04-10-2023 Functional Status Independent [facility] 02-22-2023 Functional Status Independent [facility] 02-22-2023 Functional Status Standard Safet y ID band on, Call device within reach, Bed in low position, Wheels locked, Phone within reach, personal items within reach, Bedside Cart Locked, Safety level maintained, Hazards removed from floor [facility] Mental Status Date Assessment Result Facility 09-09-2024 Cognitive function Awake;Alert;A ppropriate;Follow s Commands [facility] Work Phone: 07-29-2024 Cognitive function Level Of Cons ciousness Awake;Alert;Appropriate;Follow s Commands [facility] Work Phone: 07-01-2024 Cognitive function Awake;Alert;A ppropriate;Follow s Commands [facility] Work Phone: 06-03-2024 Cognitive function Voice/Name [facility] Work Phone: 05-06-2024 Cognitive function Awake;Alert;A ppropriate;Follow s Commands [facility] Work Phone: 04-01-2024 Cognitive function Awake;Alert;A ppropriate;Follow s Commands [facility] Work Phone: 03-04-2024 Cognitive function Level Of Cons ciousness Awake;Alert;Appropriate [facility] Work Phone: 05-01-2023 Cognitive function Awake;Alert;A ppropriate;Follow s Commands [facility] Work Phone: 04-10-2023 Mental Status Orientation Oriented x 4 [facility] 04-10-2023 Mental Status [facility] 03-16-2023 Cognitive function Voice/Name [facility] Work Phone: 02-22-2023 Mental Status Orientation Oriented x 4 [facility] 02-22-2023 Mental Status [facility] Clinical Notes 06-24-2021 to 06-10-2024 Note Date & Type Note Facility 06-10-2024 Evaluation note Diagnosis Onset Date Resolution Oral thrush acute June 10 8:03am Allergic asthma chronic June 8:03am Bipolar 1 disorder chronic June 10, 2024 8:03am [facility] Work Phone: 1(557) 731-225701-05-2024 Hospital Discharge instructions Patient Education 04/10/2023 16:28:43 COVID-19 Prevent the Spread of COVID-19 If You Are Sick (08/23/2019) (CUSTOM) Prevent the Spread of COVID-19 If You Are Sick Accessible version: https://www.cdc.gov/coronavirus/2019-ncov/ks-aev-cur-sick/voycj-lhhp-tmfu.html If you are sick with COVID-19 or [...] Animals if you have questions about pets: https://www.cdc.gov/coronavirus/2019ncov/faq.html#FTMXV47gpuvoas Monitor your symptoms. Common symptoms of COVID-19 [...] and need to call 911, notify the school bus operator that you have or think you [...] clean your hands with an alcohol-based hand straddle bug driver that contains at least 60% alcohol. Clean your hands often. Wash your hands often with soap and water for at least 20 seconds. This is especially important after blowing your nose, coughing, or sneezing; going to the bathroom; and before eating or preparing food. Use hand straddle bug driver if soap and water are not available. Use an alcohol-based hand straddle bug driver with atleast 60% alcohol, covering all surfaces [...] and water or put them in the ship ceiler. Clean all high-touch surfaces everyday. Clean and [...] or body fluids on them. Use household cut in station operator and disinfectants. Clean the area or [...] Care 04/10/2023 13:17:02 With:KELLIE CABALLERO DO Address: [address] [place] [phone] When:2-4 days [facility] 01-05-2024 Note Discharge Instructions Thank you for allowing [facility] to assist you with your healthcare needs. The following is importantdischarge information regarding your hospital visit. Diagnosis from Today's Visit COVID What to Do Next Instructions from Your Care Team No qualifying data available. Post Acute Orders No qualifying data available. You Need to Schedule the Following Appointments Follow Up with KELLIE CABALLERO DO When Within 2-4 days Where: [address] [facility] [place] [address]- [phone] Allergies NKA Medications Please ask your primary [...] day Unchanged predniSONE (prednisone 10mg tab (TAPER)) 61-64-84-77-87-32-5mg x 2days/dose by mouth Once a day Duration: 14 Days 8L0vima,7A0ygpb,7T4vxnq,7D3gqcm,2R4fzzt,2O0vvtw, 0.5X2 days. Unchanged sildenafil (sildenafil 50 mg [...] is sometimes used with a stomach acid painter touch up called lansoprazole (Prevacid). Amoxicillin may also be [...] may report side effects to FDA at 6-927-RFE-9588. What other drugs will affect amoxicillin? Tell your doctor about all your other medicines, especially: any other antibiotics; allopurinol; probenecid; or a blood thinner--warfarin, Coumadin, Jantoven. This list is not complete. Other drugs may affect amoxicillin, including prescription and hgjy-mrw-uapbiar medicines, vitamins, and herbal products. Not all [...] to ensure that the information provided by [facility]. ('[employer]') is accurate, up-to-date, and complete, but no guarantee is made to that effect. Drug information contained herein may be time sensitive. [employer] information has been compiled for use by healthcare practitioners and consumers in the [place] and therefore [employer] does not warrant that uses outside of the [place] are appropriate, unless specifically indicated otherwise. [employer] drug information does not endorse drugs, diagnose patients or recommend therapy. [employer] drug information isan informational resource designed to [...] effective or appropriate for any given patient. [employer] does not assume any responsibility for any aspect of healthcare administered with the aid of information [employer] provides. The information contained herein is not intended to cover all possible uses, directions, precautions, warnings, drug interactions, allergic reactions, or adverse effects. If you have questions about the drugs you are taking, check with your doctor, nurse or pharmacist. Copyright 2908-0060 [facility]. Version: 10.. Revision Date: 03/01/2019. albuterol inhalation [...] provided with your medicine. Ask your doctor orpharmacist if you do not understand these instructions. [...] may report side effects to FDA at 5-598-EGB-1396. What other drugs will affect albuterol inhalation? [...] may affect albuterol inhalation, including prescription and jtmf-ung-htctxzu medicines, vitamins, and herbal products. Not all [...] to ensure that the information provided by [facility]. ('[employer]') is accurate, up-to-date, and complete, but no guarantee is made to that effect. Drug information contained herein may be time sensitive. [employer] information has been compiled for use by healthcare practitioners and consumers in the [place] and therefore [employer] does not warrant that uses outside of the [place] are appropriate, unless specifically indicated otherwise. [employer] drug information does not endorse drugs, diagnose patients or recommend therapy. [employer] drug information isan informational resource designed to [...] effective or appropriate for any given patient. [employer] does not assume any responsibility for any aspect of healthcare administered with the aid of information [facility] provides. The information contained herein is not intended to cover all possible uses, directions, precautions, warnings, drug interactions, allergic reactions, or adverse effects. If you have questions about the drugs you are taking, check with your doctor, nurse or pharmacist. Copyright 1170-1802 [employer]. Version: 10.. Revision Date: 02/22/2020. Education Materials Prevent the Spread of COVID-19 If You Are Sick Accessible version: https://www.cdc.gov/coronavirus/2019-ncov/tc-cjf-lox-sick/eszuk-wtfw-wnwj.html If you are sick with COVID-19 or [...] Animals if you have questions about pets: https://www.cdc.gov/coronavirus/2019ncov/faq.html#SONZS58wocmzcz Monitor your symptoms. Common symptoms of COVID-19 [...] and need to call 911, notify the school bus operator that you have or think you [...] clean your hands with an alcohol-based hand straddle bug driver that contains at least 60% alcohol. Clean your hands often. Wash your hands often with soap and water for at least 20 seconds. This is especially important after blowing your nose, coughing, or sneezing; going to the bathroom; and before eating or preparing food. Use hand straddle bug driver if soap and water are not available. Use an alcohol-based hand straddle bug driver with atleast 60% alcohol, covering all surfaces [...] and water or put them in the ship ceiler. Clean all high-touch surfaces everyday. Clean and [...] or body fluids on them. Use household cut in station operator and disinfectants. Clean the area or [...] to receive it can visit one of [facility] vaccine clinics. There are many vaccine clinic locations within the [facility]. For locations and available times, please visit www.gettheshot.coronavirus.[place].gov/. It is important to note that some COVID mobile vaccine clinics are held outdoors and may be canceled in rainy or stormy conditions. To learn more about pediatric vaccinations (ages 5-11), we invite you to visit the [facility] webpage. https://www.[facility].org/pages/5941-Mhjaf-Fpquzyptehe-Cfkcvptryu-Nqidf-Pxf stions.htmlTo learn more about the COVID-19 vaccine, we invite you to visit the CDC website for a list of frequently asked questions. https://www.cdc.gov/coronavirus/2019-ncov/vaccines/faq.html [facility] Patient Portal Access Instructions: Stay connected with your healthcare team and access your personal medical information anytime with the [facility] Patient Portal. If you would like a full copy of your medical records please contact the [facility] Medical Records Department Thursday through Thursday between 8a.m. and 4:30p.m. Please follow the directions below to access the portal: 1.Access the email account you provided upon registration to the [facility].2.Look for an invitation email from [facility].3.Open the email and access the invitation link: Accept Invitation to [facility]4.Fill in the required cary to create your account. Sign into www.Bulu Box with your username and password that you [...] you will allow to register on the [facility] Patient Portal for access to your information. You can also access the [facility] Patient Portal on the [employer] ken. Simply click on Health Records under [employer] and then click on the [employer] logo. HOW TO SAFELY DISPOSE OF PRESCRIPTION [...] Call your local pharmacy or go to http://Packetworx.Tears for Life/7R6Hl8h to find one close to you.3.Make use of household items: Use cat litter or old coffee grounds to dispose medications if other options arenot available. Mix your drugs with these household products, seal them in an airtight container andthrow it into the garbage. Call [facility]: [phone] to be sure your drugs can be [...] aware that I should contact my doctor. Patient/Eviscerator Signature: Date/Time: Relationship to Patient: Witness Name/Signature: Date/Time: [facility]11-19-2023 Hospital Discharge instructions Patient Education 02/22/2023 18:50:22 [...] for heart disease or after a stroke) Grwr-rgt-zbcxkim medicines for diarrhea, nausea, and vomiting are generally OK unless you have bleeding, fever, or severe abdominal pain. General care If symptoms are severe, rest at home for the next 24 hours, or until you are feeling better. Washing your hands with soap and water, or using alcohol-based hand straddle bug driver is the best way to stop the [...] after. Wash your hands or use alcohol-based straddle bug driver after using cutting boards, countertops, and knives that have been in contact with raw food. Dry your hands with a single use towel. Keep uncooked meats away from cooked and beycp-xp-fpc foods. Follow-up care Follow up with your [...] every 6 hours), or very dark urine [phone] [employer]. [address] [place] [address]. All rights reserved. This information is not intended as a substitute for professional medical care. Always follow yourhealthcare professional's instructions. Follow Up Care 02/22/2023 14:18:05 With:KELLIE CABALLERO Address: [address] [place] [phone] [phone] Business (1) When:2-4 days Comments:Follow-up as needed if symptoms persist.Clear liquid diet, slowly advance as tolerated.Use Tylenol or Advil for pain and fever as needed.Use jidp-fte-bzxeizw antidiarrheal medicines like Imodium as needed.Use Zofran as prescribed for nausea and vomiting as needed.Return to the ED if symptoms worsen. [facility] 11-19-2023 Emergency department Discharge summary Discharge Instructions Thank you for allowing [facility] to assist you with your healthcare needs. [...] for pain and fever as needed. Use ghop-lgi-guhscdu antidiarrheal medicines like Imodium as needed. Use Zofran as prescribed for nausea and vomiting as needed. Return to the ED if symptoms worsen. Where: [address] [place] [phone]- [phone] Business (1) Allergies NKA Medications Please ask [...] day Unchanged predniSONE (prednisone 10mg tab (TAPER)) 88-20-56-91-28-88-5mg x 2days/dose by mouth Once a day Duration: 14 Days 4L0chnp,6J7mkyh,1L8rrkt,0K1wpoc,4Y5cdvw,9F2zqck, 0.5X2 days. Unchanged tiotropium (Spiriva Respimat 1.25 [...] for heart disease or after a stroke) Nddz-ppm-vkwfwbe medicines for diarrhea, nausea, and vomiting are generally OK unless you have bleeding, fever, or severe abdominal pain. General care If symptoms are severe, rest at home for the next 24 hours, or until you are feeling better. Washing your hands with soap and water, or using alcohol-based hand straddle bug driver is the best way to stop the [...] after. Wash your hands or use alcohol-based straddle bug driver after using cutting boards, countertops, and knives that have been in contact with raw food. Dry your hands with a single use towel. Keep uncooked meats away from cooked and eoskl-yp-kfz foods. Follow-up care Follow up with your [...] every 6 hours), or very dark urine [phone] [employer]. [address] [place] [address], [place] [address]. All rights reserved. This information is not intended as a substitute for professional medical care. Always follow yourhealthcare professional's instructions. Additional Information VACCINATE! IT SAVES LIVES! Members of the community who have not yet received the COVID-19 vaccine and would like to receive it can visit one of [facility] vaccine clinics. There are many vaccine clinic locations within the [facility]. For locations and available times, please visit www.gettheshot.coronavirus.[place].gov/. It is important to note that some COVID mobile vaccine clinics are held outdoors and may be canceled in rainy or stormy conditions. To learn more about pediatric vaccinations (ages 5-11), we invite you to visit the [facility] webpage. https://www.[facility].org/pages/5006-Nnsou-Kqtrihjyhey-Lglvycauro-Kopbq-Jwv stions.htmlTo learn more about the COVID-19 vaccine, we invite you to visit the CDC website for a list of frequently asked questions. https://www.cdc.gov/coronavirus/2019-ncov/vaccines/faq.html [facility] Patient Portal Access Instructions: Stay connected with your healthcare team and access your personal medical information anytime with the [facility] Patient Portal. If you would like a full copy of your medical records please contact the [facility] Medical Records Department Thursday through Thursday between 8a.m. and 4:30p.m. Please follow the directions below to access the portal: 1.Access the email account you provided upon registration to the [facility].2.Look for an invitation email from [facility].3.Open the email and access the invitation link: Accept Invitation to [facility]4.Fill in the required cary to create your account. Sign into www.Bulu Box with your username and password that you [...] you will allow to register on the [facility] Patient Portal for access to your information. You can also access the [facility] Patient Portal on the [employer] ken. Simply click on Health Records under [employer] and then click on the [employer] logo. HOW TO SAFELY DISPOSE OF PRESCRIPTION [...] Call your local pharmacy or go to http://Packetworx.Tears for Life/1T7Lv3f to find one close to you.3.Make use of household items: Use cat litter or old coffee grounds to dispose medications if other options arenot available. Mix your drugs with these household products, seal them in an airtight container andthrow it into the garbage. Call [facility]: [phone] to be sure your drugs can be [...] been reviewed and explained to me and I,MARIANOADELIA DAHLIA Nakia understand my current condition and have read and understand these discharge instructions. I have received a written copy of the plan/instructions. If I have questions, I am aware that I should contact my doctor. Patient/Eviscerator Signature: Date/Time: Relationship to Patient: Witness Name/Signature: Date/Time: [facility] [id number] NoteSINUS RHYTHM BORDERLINE T WAVE ABNORMALITIES Electronic Signature: ODALIS CERVANTES MD 02/22/2023 18:37:24[facility] 08-09-2023 Procedure [facility] 04-17-2022 Note ORIGINAL HISTORY: Short of breath, [...] Date: 04/17/2022 9:16:06 AM [facility] Note ORIGINAL HISTORY: Short of breath, cough, [...] Date: 04/17/2022 9:16:06 AM Ordering Provider[id number] Hospital Discharge instructions Patient Education 06/24/2021 10:49:03 [...] Lips or fingernails turning posada or blue [phone] [employer]. [address] [place] [address]. All rights reserved. This information is not intended as a substitute for professional medical care. Always follow yourhealthcare professional's instructions. Follow Up Care 06/24/2021 08:07:58 With:KELLIE CABALLERO DO Address: [phone] When:2-[address] [facility] evaluation + Plan note Future Appointments Appointment Date:07/24/2021 02:00:00 PM Scheduled Provider:KELLIE CABALLERO DO [facility] Type: OV Future Scheduled Tests Laboratory* Prostate Specific Antigen 06/18/21 * Urinalysis 06/18/21 * A1C Hemoglobin 06/18/21 * Complete Blood Count 06/18/21 * Lipid Profile 06/18/21 * Complete Metabolic Panel 06/18/[address] [facility] Evaluation + Plan note Future Appointments Appointment Date:06/23/2022 09:00:00 AM Scheduled Provider:KELLIE CABALLERO DO Location[facility] Appointment Type: Wellness Annual Future Scheduled Tests Laboratory* Lipid Profile 06/29/22 * Complete Metabolic Panel 06/29/[address] [facility] Evaluation + Plan note Future Appointments Appointment Date:05/23/2022 11:30:00 AM Scheduled Provider:KELLIE CABALLERO DO [facility] Appoint[facility] Type:PC OV Appointment Date:06/23/2022 09:00:00 AM Scheduled Provider:KELLIE CABALLERO DO [facility] Appoint[facility] Type:PC Wellness Annual Future Scheduled Tests Laboratory* Lipid Profile 06/29/22 * Complete Metabolic Panel 06/29/22 [facility] Evaluation + Plan note Future Appointments Appointment Date:03/12/2023 08:00:00 AM Scheduled Provider:KELLIE CABALLERO DO [facility] Appoint[facility] Type:PC OV Follow Up Future Scheduled Tests Laboratory* Lipid Profile 06/29/22 * Complete Metabolic Panel 06/29/[address] [facility] Evaluation + Plan note Future Appointments Appointment Date:04/16/2023 04:00:00 PM Scheduled Provider:KELLIE CABALLERO DO [facility] Appoint[facility] Type:PC OV Follow Up Future Scheduled Tests Laboratory* Lipid Profile 06/29/22 * Complete Metabolic Panel 06/29/[address] [facility] Evaluation note* Diagnosis Onset Date Resolution Status Asthma [facility] Work Phone: Evaluation note* Diagnosis Onset Date Resolution Status Bipolar 1 disorder acute Allergic asthma chronic Asthma [facility] Work Phone: Hospital course Narrative No data available for this section [facility] Hospital Discharge instructions No data available for this section [facility] Progress note No data available for this section [facility] Reason for referral (narrative)No reason for referral information availableWLake [facility] Work Phone: Summary Purpose Family History No [...] 1 disorder June 10, 2024 8:03 am Chief Complaint Admit Date XOLAIR June 03, 2024 8:23am 6 M FU June 10, 2024 8:03 am XOLAIR July 01, 2024 9:4 4am XOLAIR July 29, 2024 9:4 7am XOLAIR September 09, 2024 9:54a m Additional Source Comments (unrecognized sect ion and content) No Status Records FoundNo Status Records FoundNo Status Records FoundNo Status Records Found INFORMATION SOURCE (unrecogn ized section and content) DATE CREATED AUTHOR 09/24/2017 [facility] DATE CREATED AUTHOR AUTHOR'S ORGANIZ ATION 11/07/2023 [facility] ([place]) DATE CREATED AUTHOR AUTHOR'S ORGANIZ ATION 10/14/2024 GRAYL[facility] MASSILLO N DATE CREATED AUTHOR AUTHOR'S ORGANIZ ATION 10/17/2024 [facility] Care Team (unrecognized sect ion and content) Care Team Personnel Name: KELLIE CABALLERO DO Position: P4 Physician - Primary Care Member Role: Primary Care Physician Address: Address: [address] [place] [address]- Name: KERVIN SALEH PA-C Position: ED Physician Quality Internship Member Role: ED PA Address: Address: [address] [place], [place] [address] Care Team Related Persons Name: BLAIR HAMMOND Name: RAMOS CHOE Name: RENATA CHOE Care Team Personnel Name: KELLIE CABALLERO DO Position: P4 Physician - Primary Care Member Role: Primary Care Physician Address: Address: [address] [place] [address]- Care Team Related Persons Name: BLAIR HAMMOND Name: RAMOS CHOE Name: RENATA CHOE Care Team Personnel Name: ADA KELLIE INIGUEZ Position: P4 Physician - Primary Care Member Role: Primary Care Physician Address: Address: [address] [place] [id number]- Care Team Related Persons Name: BLAIR HAMMOND [...] Inactive Member Role Status Dates Rosanna Saunders NP, HOT CAR CHARGER-C Attending Provider Active Dr. Kellie Caballero DO Primary Care Provider, Referrin g Provider Active Team Status: Inactive Member Role Status Dates Dr. Kellie Caballero DO Primary Care Provider, Referrin g Provider Active Dr. Uche Segura MD Attending Provider Active Team Status: Inactive Member Role Status Dates Dr. Kellie Caballero DO Primary Care Provider, Referrin g Provider Active Rosanna Saunders HOT CAR CHARGER, HOT CAR CHARGER-C Attending Provider Active Team Status: Inactive Member Role Status Dates Dr. Kellie Caballero DO Primary Care Provider Active Rosanna Saunders HOT CAR CHARGER, HOT CAR CHARGER-C Attending Provider, Referrin g Provider Active Team Status: Inactive Member Role Status Dates Dr. Kellie Caballero DO Primary Care Provider Active Start: March 04, 2024 End: March 04, 2024 Rosanna Saunders NP, HOT CAR CHARGER-C Attending Provider Active Start: March 04, 2024 End: March 04, 2024 Rosanan Saunders HOT CAR CHARGER, HOT CAR CHARGER-C Referring Provider Active Start: March 04, 2024 End: March 04, 2024 Team Status: Inactive Member Role Status Dates Dr. Kellie Caballero DO Primary Care Provider Active Start: April 01, 2024 End: April 01, 2024 Rosanna Saunders HOT CAR CHARGER, HOT CAR CHARGER-C Attending Provider Active Start: April 01, 2024 End: April 01, 2024 Rosanna Saunders HOT CAR CHARGER, HOT CAR CHARGER-C Referring Provider Active Start: April 01, 2024 End: April 01, 2024 Team Status: Inactive Member Role Status Dates Dr. Kellie Caballero DO Primary Care Provider Active Start: May 06, 2024 End: May 06, 2024 Rosanna Saunders [employer], [employer]-C Attending Provider Active Start: May 06, 2024 End: May 06, 2024 Rosanna Saunders [employer], H[employer]GER-C Referring Provider Active Start: May 06, 2024 End: May 06, 2024 Team Status: Inactive Member Role Status Dates Dr. Kellie Caballero DO Primary Care Provider Active Start: June 03, 2024 End: June 03, 2024 Rosanna Saunders H[employer]GER, H[employer]GER-C Attending Provider Active Start: June 03, 2024 End: June 03, 2024 Rosanna Saunders [employer]GER, H[employer]GER-C Referring Provider Active Start: June 03, 2024 End: June 03, 2024 Team Status: Inactive Member Role Status Dates Dr. Kellie Caballero DO Primary Care Provider Active Start: June 10, 2024 End: June 10, 2024 Dr. Kellie Caballero DO Referring Provider Active Start: June 10, 2024 End: June 10, 2024 Rosanna Saunders [employer]GER, H[employer]GER-C Attending Provider Active Start: June 10, 2024 End: June 10, 2024 Team Status: Inactive Member Role Status Dates Dr. Kellie Caballero DO Primary Care Provider Active Start: July 01, 2024 End: July 01, 2024 Rosanna Saunders [employer]GER, H[employer]GER-C Attending Provider Active Start: July 01, 2024 End: July 01, 2024 Rosanna Saunders [employer]GER, H[employer] CHARGER-C Referring Provider Active Start: July 01, 2024 End: July 01, 2024 Team Status: Inactive Member Role Status Dates Dr. Kellie Caballero DO Primary Care Provider Active Start: July 29, 2024 End: July 29, 2024 Rosanna Saunders [employer]GER, H[employer]GER-C Attending Provider Active Start: July 29, 2024 End: July 29, 2024 Rosanna Saunders H[employer]GER, H[employer] CHARGER-C Referring Provider Active Start: July 29, 2024 End: July 29, 2024 Team Status: Inactive Member Role Status Dates Dr. Kellie Caballero , Primary Care Provider Active Start: September 09, 2024 End: September 09, 2024 Rosanna Saunders [employer]GER, H[employer] CHARGER-C Attending Provider Active Start: September 09, 2024 End: September 09, 2024 Rosanna Saunders [employer]GER, H[employer] CHARGER-C Referring Provider Active Start: September 09, 2024 End: September 09, 2024 Goals (unrecognized section and content) Goals [...] BE BASED ON THE PRIMARY CLINICAL RECORDS. [facility]. provides no warranty or guarantee of the accuracy or completeness of information in this document.
== END 2024-10-21 23:59 | disposition home or self-care (01) ==
LOC: MEDOUTP 10:10
PROVIDERS: PCP Student in an Organized Health Care Education/Training Program; Referring Provider Nurse Practitioner Acute Care; Visit Provider Nurse Practitioner Acute Care
DX: J45.50 Severe persistent asthma, uncomplicated (principal)
CPT/HCPCS: 96372; J2357

== ENCOUNTER 2024-11-18 09:53 | Outpatient (CLI) | payer MEDICAID, SELFPAY ==
[2024-11-18 10:04] VITALS: BP 120/69; PULSE 57; RESP 16; TEMP 36.4; O2SAT 98; BMI 27.8
== END 2024-11-18 23:59 | disposition home or self-care (01) ==
LOC: MEDOUTP 09:53
PROVIDERS: PCP Student in an Organized Health Care Education/Training Program; Referring Provider Nurse Practitioner Acute Care; Visit Provider Nurse Practitioner Acute Care
DX: J45.50 Severe persistent asthma, uncomplicated (principal)
CPT/HCPCS: 96372; J2357

== ENCOUNTER 2025-01-13 08:43 | Outpatient (CLI) | payer MEDICAID, SELFPAY ==
[2025-01-13 08:59] VITALS: BP 118/74; PULSE 68; RESP 16; TEMP 36.1; O2SAT 97
== END 2025-01-13 23:59 | disposition home or self-care (01) ==
LOC: MEDOUTP 08:45
PROVIDERS: PCP Student in an Organized Health Care Education/Training Program; Referring Provider Nurse Practitioner Family; Visit Provider Nurse Practitioner Family
DX: J45.50 Severe persistent asthma, uncomplicated (principal)
CPT/HCPCS: 96372; J2357